=== PATIENT | male | born 1980 | race Caucasian/White ===

== ENCOUNTER 2022-10-14 10:17 | Emergency (ER) | payer OTHER, SELFPAY ==
[2022-10-14 11:25] VITALS: BP 130/89; PULSE 66; RESP 16; TEMP 36.6; O2SAT 99
--- NOTE | 2022-10-14 12:27 | ED.URI ---
HPI - URI/Sore Throat General Chief Complaint: Upper Respiratory Infection Stated Complaint: COUGH/SORE THROAT Time Seen by Provider: 10/14/22 12:15 Source: patient Mode of arrival: ambulatory Limitations: no limitations History of Present Illness HPI Narrative: Patient presents today with a 4 day history of cough, sore throat that is most prominent in the mornings, sweats, rhinorrhea. Denies shortness of breath. He isn't taking DayQuil with some relief. Daughter was sick with influenza 2 weeks ago. He is a nonsmoker. Denies any history of asthma or COPD. He did receive his flu vaccine this season. Related Data Allergies Allergy/AdvReac Type Severity Reaction Status Date / Time No Known Drug Allergies Allergy Unknown none Verified 10/14/22 12:00 Review of Systems Review of Systems: CONSTITUTIONAL: Denies fever, chills. + body aches, sweats EYES: Denies visual changes, redness, or discharge. ENT: Denies congestion, otalgia.+ rhinorrhea, sore throat CARDIOVASCULAR: Denies chest pain, palpitations, or edema. RESPIRATORY: Denies dyspnea.+ cough GASTROINTESTINAL: Denies abdominal pain, nausea, vomiting, or diarrhea. GENITOURINARY: Denies dysuria or hematuria. SKIN: Denies rash, itching, or wounds. MUSCULOSKELETAL: Denies back pain, joint pain, or myalgia. NEUROLOGIC: Denies headache, numbness, tingling, or weakness. PSYCH: Denies depression or anxiety. PMFSH Comments At time of signature, I have reviewed and agree with nursing past medical, surgical, social and family history unless otherwise noted. Please see nursing chart for further information. There is no relevant family history pertinent to the presenting complaint Exam Narrative: GENERAL: Well-appearing, well-nourished, and in no acute distress. HEAD: Normocephalic, atraumatic. EYES: EOMI. No redness or drainage. Conjunctivae normal. ENT: Mucous membranes pink and moist. Nares clear. No rhinorrhea. TMs normal bilaterally. Throat mildly erythematous edema. No exudate. Uvula midline. NECK: Normal AROM. Supple. No lymphadenopathy. CHEST: No respiratory distress. Clear to auscultation. HEART: Regular rate and rhythm. No murmur appreciated. Normal peripheral pulses. EXTREMITIES: Normal range of motion. No edema. SKIN: Warm, dry, no rash. Capillary refill normal. Normal skin turgor. NEURO: No focal deficits. Alert and oriented x3. Gait steady. PSYCH: Normal affect. No signs of depression or anxiety. Course Course Level of Care: Express Care Visit Vital Signs Vital signs: Vital Signs Temperature 98 F 10/14/22 11:25 Pulse Rate 66 10/14/22 11:25 Respiratory Rate 16 10/14/22 11:25 Blood Pressure 130/89 10/14/22 11:25 Pulse Oximetry 99 10/14/22 11:25 Oxygen Delivery Room Air 10/14/22 11:25 Temperature 98 F 10/14/22 11:25 Pulse Rate 66 10/14/22 11:25 Respiratory Rate 16 10/14/22 11:25 Blood Pressure 130/89 10/14/22 11:25 Pulse Oximetry 99 10/14/22 11:25 Oxygen Delivery Room Air 10/14/22 11:25 Reviewed. Pt has been instructed to follow up with his PCP regarding his elevated blood pressure today. MDM - URI/Sore Throat Differential Diagnosis Differential diagnosis: Likely upper respiratory infection, viral infection, bronchitis, influenza, pharyngitis and other (Strep throat) Lab Data Attestation: I reviewed the patient's lab results. Lab results narrative: Influenza negative, rapid strep positive Critical Care Time Critical Care Time Critical Care Time: No Discharge Plan Discharge Clinical Impression: Strep throat Patient Disposition: Home, Self-Care Condition: Stable Instructions: Antibiotic Form, Strep Throat (DC) Additional Instructions: Your influenza swab is negative. Your rapid strep swab is positive. Please take the amoxicillin as prescribed until gone. You will be contagious for 48 hours after starting the amoxicillin. Take Tylenol or ibuprofen at home for pain. Follow-up wi
== END 2022-10-14 12:39 | disposition home or self-care (01) ==
PROVIDERS: Emergency Provider Nurse Practitioner
DX: J02.0 Streptococcal pharyngitis (principal)
CPT/HCPCS: 87804; 87880; 99213; G0463

== ENCOUNTER 2024-02-26 01:55 | Emergency (ER) | payer BC, SELFPAY ==
--- NOTE | ~2024-02-26 | CT_ITS ---
EXAMINATION: CT abdomen pelvis w con DATE: 02/26/2024 03:21 INDICATION: Abdominal cramping for 2 months TECHNIQUE: Computed tomography (CT) of the abdomen and pelvis was performed with 100 CC Omnipaque 350 intravenous contrast. Automated exposure control and iterative reconstruction technique were employe d. Exam dose: 873.44 mGy-cm total exam DLP. COMPARISON: None. FINDINGS: The lung bases are clear. Normal heart size. No pericardial or pleural effusion. Small sliding hiatal hernia. There is thickening of the wall of the gastric antrum which may be due to gastritis or gastric neopla sm. Endoscopic correlation is recommended. Normal appendix. No bowel obstruction, bowel wall thickening, pneumatosis or intraperitoneal free air is noted otherwise. There are shotty nonenlarged periaortic, mesenteric and right lower quadrant lymph nodes. Several small probable hepatic cysts. The largest measures 1 cm. No gallstones, gallbladder wall thickening or pericholecystic fluid or fat stranding is evident. Ultr asound is more sensitive for detection of cholelithiasis. No bile duct or pancreatic duct dilatation. No pancreatic mass lesion or calcification. Normal spleni c size. Normal morphology of the adrenal glands. No renal mass lesion, urinary tract calculus or hydroureteronephrosis. Prostate calcifications. The urinary bladder appears unremarkable. No suspicious osteolytic or osteoblastic lesions. Mild to moderate bilateral hip osteoarthritis. IMPRESSION: Gastric antrum wall thickening which may be due to to gastritis or neoplasm; recommend e ndoscopic correlation Reviewed, dictated and finalized at [facility] Reviewed, dictated and finalized at [facility]. IMPRESSION: Gastric antrum wall thickening which may be due to to gastritis or neoplasm; recommend endoscopic correlation
[2024-02-26 02:00] VITALS: BP 137/88; PULSE 72; RESP 16; TEMP 36.6; O2SAT 97
[2024-02-26 02:24] LABS: Basophils Percent Auto 0.5 % (0.2-1.2); Eosinophils Absolute Auto 0.4 K/mm3 (0-0.3); Hematocrit 45.7 % (42.0-52.0); Immature Granulocyte Absolute 0.01 K/mm3 (0.00-0.031); Immature Granulocyte Percent A 0.2 % (0-0.5); Lymphocytes Absolute Auto 1.04 K/mm3 (0.9-3.2); Lymphocytes Percent Auto 16.3 % (18.3-44.2); Mean Corpuscular HGB Conc 32.8 g/dl (32-36); Mean Corpuscular Hemoglobin 30.3 pg (26-34); Mean Corpuscular Volume 92.3 fl (80-100); Mean Platelet Volume 9.5 fl (7.4-10.4); Monocytes Absolute Auto 0.6 K/mm3 (0.1-0.6); Monocytes Percent Auto 9.1 % (2.6-8.5); Neutrophils Absolute Auto 4.3 K/mm3 (1.3-6.7); Neutrophils Percent Auto 67.9 % (45.5-73.1); Platelet Count Result 246 k/mm3 (150-375); Red Blood Count 4.95 M/mm3 (4.6-6.20); Red Cell Distribution Width 12.1 % (11.5-14.5); White Blood Count 6.4 K/mm3 (4.5-10.0)
[2024-02-26 02:34] LABS: Alanine Aminotransferase 78 U/L (6-50); Albumin Level 3.7 g/dL (3.5-5.1); Alkaline Phosphatase 244 U/L (38-126); Anion Gap 5 mmol/L (4-12); Aspartate Amino Transferase 41 U/L (17-59); Bilirubin,Total 0.8 mg/dL (0.2-1.3); Blood Urea Nitrogen 11 mg/dL (9-20); Calcium 8.9 mg/dL (8.4-10.2); Carbon Dioxide 29 mmol/L (22-30); Chloride 101 mmol/L (98-107); Estimated CRCL calculation 109 ml/min; Estimated Glomerular Filt Rate > 60; Glucose 129 mg/dL (65-110); Lactic Acid Reflex 0.7 mmol/L (0.7-2.0); Lipase 96 U/L (23-300); Magnesium 1.8 mg/dL (1.6-2.3); Potassium 3.8 mmol/L (3.4-5.0); Sodium 135 mmol/L (137-145)
[2024-02-26 02:40] LABS: Appearance Urine Clear (Clear); Bilirubin Urine Negative (Negative); Blood Urine Negative (Negative); Color Urine Dark Yellow (Yellow); Glucose Urine UA Negative (Negative); Ketones Urine 1+ mg/dL (Negative); Leukocyte Esterase Ur Negative LEU/UL (Negative); Nitrate Urine Negative (Negative); Protein Urine Negative (Negative); Specific Grav Ur 1.027 (1.001-1.035); Urobilinogen Urine 0.2 mg/dL (<2.0)
[2024-02-26 02:41] LABS: Add Urine Microscopic? NO
[2024-02-26] MEDS: ONDANSETRON INJ 4 MG/2 ML VIAL IV PUSH (03:36)
--- NOTE | 2024-02-26 05:35 | ED.ABDPAIN ---
HPI - Abdominal Pain General Chief Complaint: Abdominal Pain Stated Complaint: I've been sick for a couple of months abd cramps Time Seen by Provider: 02/26/24 03:59 History of Present Illness HPI narrative: Patient is a 43-year-old male who presents to the emergency department this morning complaining of generalized abdominal cramping for the past few months. Patient states that this is associated with nausea, vomiting and diarrhea and has been intermittent for approximately 2-3 months. Patient denies any history of previous GI disorders and denies any family history of ulcerative colitis or Crohn's or double bowel syndrome. Patient states that lately he has noticed that mood majority of the fluid that he needs just does not sit well with him, he either vomits or and having diarrhea. Patient has an appointment on Wednesday in [address] for an upper endoscopy and colonoscopy. Patient states that the pain is just cramping all over his abdomen denies any localized pain. He denies any urinary symptoms and denies any fevers or chills. There are no other modifying, alleviating, or precipitating factors at this time. Related Data Allergies Allergy/AdvReac Type Severity Reaction Status Date / Time No Known Drug Allergies Allergy Unknown none Verified 02/16/24 11:56 Review of Systems Review of Systems: All systems are reviewed and are negative unless stated otherwise in the HPI. [facility] Social History Social History Smoking status: Never smoker Alcohol intake: never Substance use: never Substance use type: does not use Living arrangements: with family Spiritual care concerns: No Exam Narrative: General: Alert, awake, afebrile, in no acute distress. HEENT: PERRL, no rhinorrhea, no post nasal drip, oropharynx clear. Neck: Trachea midline, no JVD, no lymphadenopathy. Cardiovascular: Regular rate and rhythm, no murmurs, rubs or gallops, no peripheral edema. Respiratory: Clear to auscultation bilaterally, no tachypnea, no wheezing, no rhonchi, no rubs, no respiratory distress. Abdomen: Soft, nontender, nondistended, no rebound, no guarding, no peritoneal signs. Musculoskeletal: No joint swelling or deformity, normal muscle tone. Skin: No rashes or petechia, no signs of infection. Psychiatric: Alert and oriented, normal behavior and judgment for situation. Neurological: Alert and oriented to person, place, and time. Follows all commands. No focal deficits, speech is clear and fluent. Course Vital Signs Vital signs: Vital Signs Temperature 97.8 F 02/26/24 02:00 Pulse Rate 72 02/26/24 02:00 Respiratory Rate 16 02/26/24 02:00 Blood Pressure 137/88 02/26/24 02:00 Pulse Oximetry 97 02/26/24 02:00 Temperature 97.8 F 02/26/24 02:00 Pulse Rate 68 02/26/24 07:03 Respiratory Rate 18 02/26/24 07:03 Blood Pressure 178/78 H 02/26/24 07:03 Pulse Oximetry 98 02/26/24 07:03 MDM - Abdominal Pain MDM Narrative Medical decision making narrative: The patient was evaluated by myself in the emergency department. History is obtained from patient who is an independent historian and physical exam was performed. External medical records were reviewed at this time. IV was established and pertinent tests were ordered. Patient was administered 4 mg IV Zofran for nausea. Laboratory results obtained revealing mild elevation and patient's alkaline phosphatase of 244 and mild elevation of the ALT of 78. Imaging studies obtained included CT abdomen and pelvis with IV contrast which was independently interpreted by me revealing gastric antrum wall thickening which may be due to to gastritis or neoplasm; recommend endoscopic correlation. Differential diagnosis considerations include gastritis, peptic ulcer disease, inflammatory bowel disease and acute viral syndrome. Comorbidities impacting this visit include none. I have ev
[2024-02-26 07:03] VITALS: BP 178/78; PULSE 68; RESP 18; O2SAT 98
== END 2024-02-26 07:06 | disposition home or self-care (01) ==
PROVIDERS: Emergency Provider Emergency Medicine; PCP Emergency Medicine
DX: R10.84 Generalized abdominal pain (principal); R11.2 Nausea with vomiting, unspecified
CPT/HCPCS: 36415; 74177; 80053; 81003; 82248; 83605; 83690; 83735; 85025; 96374; 99284; J2405; Q9967

== ENCOUNTER 2024-02-29 00:28 | Day surgery (SDC) | payer BC, SELFPAY ==
[2024-02-16 11:57] VITALS: BMI 36.6
--- NOTE | 2024-02-25 10:06 | SUR.PREOP ---
Patient called regarding upcoming procedure. Reviewed preop instructions, appointment times, and procedure prep.
[2024-02-29 11:54] VITALS: PULSE 83; RESP 18; TEMP 36.3; O2SAT 97
[2024-02-29] MEDS: LACTATED RINGERS 1,000 ML 150 ML IV CONT (12:04)
[2024-02-29 12:10] VITALS: BP 127/81
--- NOTE | 2024-02-29 12:52 | P.PNAN_ITS ---
Anes - Initial Pre Proc Eval Procedure: Operation Date: 02/29/24 13:00 Proposed Procedures p Esophagogastroduodenoscopy & Colonoscopy - Shahzad Fuentes MD Date/Time: 02/29/24 12:52 Surgeon: Shahzad Fuentes MD Pre Op Diagnosis: Change in bowel habit, diarrhea, GERD Patient Data Age: 43 Gender: M Height: 1.78 m Weight: 112.4 kg Last Vital Signs Temp 97.3 F L 02/29/24 11:54 Pulse 83 02/29/24 11:54 Resp 18 02/29/24 11:54 BP 127/81 02/29/24 12:10 Pulse Ox 97 02/29/24 11:54 O2 Del Method Room Air 02/29/24 11:54 Allergies Allergy/AdvReac Type Severity Reaction Status Date / Time No Known Drug Allergies Allergy Unknown none Verified 02/29/24 11:52 Home Medications Medication Instructions Recorded Confirmed Type ondansetron 4 mg disintegrating 4 mg PO Q8H PRN nausea and 02/26/24 Rx tablet vomiting #10 tabs Patient hx anesthesia problems: none Family hx anesthesia problems: none Results Review: All pre-operative results and documents have been reviewed as part of the pre- operative evaluation. PMFSH Social History Social History Smoking status: Never smoker Alcohol intake: never Substance use: never Substance use type: does not use Living arrangements: with family Spiritual care concerns: No Anes - Eval Final PreProcedure Day of Procedure 02/29/24 12:52 Patient weight: obese Heart: regular rate and rhythm Lungs: clear to auscultation Airway: Mallampati scale class II Neurological: alert and oriented Last oral intake: >/= 8 hours ASA classification: II Emergent: no Anesthetic plan: proceed Anesthesia type and monitoring: general GIVS and standard monitoring Results Review: All pre-operative results and documents have been reviewed as part of the pre- operative evaluation. Informed Consent: The patient's anesthetic plan and its attendant risks and benefits were discussed with the patient/family/POA. Questions were solicited and answers provided to the satisfaction of the patient/family/POA.
--- NOTE | 2024-02-29 12:54 | PM.HPGS ---
History of Present Illness History of Present Illness Consent: Risks, benefits, and alternatives have been discussed and questions answered. Patient agrees to proceed with procedure. Chief complaint: Change in bowel habit, diarrhea, GERD Narrative: Lukasz Gibbs is a 43 year old male with nausea and vomiting for last 3 weeks, diarrhea for 2 months, never had scopes. Also noted weight loss. He came to ER recently, CT scan showed gastric antrum wall thickening which may be due to to gastritis or neoplasm; recommend endoscopic correlation Review of Systems Review of Systems: All systems reviewed & are unremarkable except as noted in HPI and below PMFSH Past Medical History Medical History (Updated 02/29/24 @ 12:56 by Shahzad Fuentes MD) Nausea and vomiting in adult Weight loss Social History Social History Smoking status: Never smoker Alcohol intake: never Substance use: never Substance use type: does not use Living arrangements: with family Spiritual care concerns: No Meds Home Medications and Allergies Home Medications Medication Instructions Recorded Confirmed Type ondansetron 4 mg disintegrating 4 mg PO Q8H PRN nausea and 02/26/24 Rx tablet vomiting #10 tabs Allergies Allergy/AdvReac Type Severity Reaction Status Date / Time No Known Drug Allergies Allergy Unknown none Verified 02/29/24 11:52 Vital Signs Vital Signs - 24 hr 02/29/24 11:54 02/29/24 12:10 Temperature 97.3 F L Pulse Rate 83 Respiratory Rate 18 Blood Pressure 127/81 Pulse Oximetry 97 Oxygen Delivery Room Air Exam Const: General: comfortable and no acute distress HENMT: Face/Nose/Sinus: Normal nares present Eyes: General: appearance normal, both eyes and all related structures Neck: Neck: no JVD Resp: Auscultation: clear to auscultation bilaterally Cardio: Rate: regular rate Rhythm: regular rhythm GI: Inspection: non-distended GI Palp: Yes Soft to palpation Skin: General skin exam: normal color Neuro: General: gait normal Speech: normal speech Extrem: General: normal to inspection Psych: Mental Status: mental status grossly normal Assessment and Plan Assessment and plan (1) Nausea and vomiting in adult: Code(s): R11.2 - Nausea with vomiting, unspecified Status: Acute Assessment and Plan: egd with bx (2) Weight loss: Code(s): R63.4 - Abnormal weight loss Status: Acute Assessment and Plan: also will do colonoscopy consider random bx to check for colitis
--- NOTE | 2024-02-29 13:14 | SUR.OPER ---
egd ended at 1309, colonoscopy started at 1314
[2024-02-29 13:32] VITALS: BP 113/82; PULSE 70; RESP 18; O2SAT 95
[2024-02-29 13:42] VITALS: BP 123/79; PULSE 71; RESP 14; O2SAT 99
[2024-02-29 13:52] VITALS: BP 109/60; PULSE 67; RESP 18; O2SAT 99
== END 2024-02-29 14:08 | disposition home or self-care (01) ==
PROVIDERS: PCP Emergency Medicine; Visit Provider Internal Medicine Gastroenterology
PROC: 0DJ08ZZ Inspection of Upper Intestinal Tract, Via Natural or Artificial Opening Endoscopic (ICD-10-PCS; CPT 43235; principal; 2024-02-29 13:00)
DX: K52.9 Noninfective gastroenteritis and colitis, unspecified (principal); K21.00 Gastro-esophageal reflux disease with esophagitis, without bleeding; K29.70 Gastritis, unspecified, without bleeding; K44.9 Diaphragmatic hernia without obstruction or gangrene; E66.9 Obesity, unspecified; Z68.35 Body mass index [BMI] 35.0-35.9, adult
CPT/HCPCS: 45380; 43239; 88305; 88342; J2704; J7120

== ENCOUNTER 2024-03-08 11:35 | Outpatient (CLI) | payer BC, SELFPAY ==
[2024-03-08 12:17] LABS: CRP 0.7 mg/dL (<1.0)
[2024-03-08 13:25] LABS: Erythrocyte Sedimentation Rate 50 mm/hr (0-20)
[2024-03-08 13:29] LABS: Hepatitis B Surface Antigen Negative (Negative)
[2024-03-08 13:35] LABS: HAV RESULT Negative (Negative); Hepatitis B Core IgM Result Negative (Negative)
[2024-03-08 13:46] LABS: Hepatitis C Virus Antibody Negative (Negative)
[2024-03-08 13:46] LABS: HIV 1/2 Ab P24 Ag Result Negative (Negative)
[2024-03-10 17:49] LABS: NIL 0.12 IU/mL; Quantiferon TB Plus, 1T NEGATIVE (NEGATIVE); TB1-NIL 0.01 IU/mL; TB2-NIL 0.01 IU/mL
[2024-03-13 02:58] LABS: Myeloperoxidase Ab <1.0 AI (<1.0); Proteinase-3 Ab 1.9 AI (<1.0)
[2024-03-13 05:49] LABS: S cerevisiae Ab (IgA) 4.5 U (<=20.0)
[2024-03-13 09:48] LABS: S cerevisiae Ab (IgG) 28.7 U (<=20.0)
[2024-03-14 08:05] LABS: ANCA Screen C-ANCA POS (Negative); C-ANCA Titer Reflex Chg Test YES
== END 2024-03-08 11:36 | disposition home or self-care (01) ==
LOC: ANHLAB 11:37
PROVIDERS: PCP Emergency Medicine; Visit Provider Internal Medicine Gastroenterology
DX: R63.4 Abnormal weight loss (principal); K52.9 Noninfective gastroenteritis and colitis, unspecified
CPT/HCPCS: 36415; 80074; 85652; 86036; 86140; 86480; 86671; 86703; G0432

== ENCOUNTER 2024-03-16 08:07 | Outpatient (CLI) | payer BC, SELFPAY ==
--- NOTE | ~2024-03-16 | US_ITS ---
Abdominal Sonogram: Real-time sonographic imaging of the abdomen was performed. Clinical History: Liver disease Findings: The liver appears heterogeneous, with no evidence of mass lesion or bile duct dilatation. Main portal vein demonstrates normal direction of flow. The spleen is mildly enlarged, measuring 14.5 cm in length. The gallbladder is well distended, and appears normal with no evidence of gallstone o r wall thickening. The common bile duct measures 5 mm. The visualized pancreas, aorta, and IVC are u nremarkable. The right kidney measures 10.4 cm in length and the left kidney measures 12.2 cm. Ther e is no hydronephrosis or renal calculus. Impression: Suspected fatty infiltration of liver versus possibly other chronic liver disease. Correlate clinical ly. Mild splenomegaly. Reviewed, dictated and finalized at [facility]. Impression: Suspected fatty infiltration of liver versus possibly other chronic liver disea se. Correlate clinically. Mild splenomegaly.
== END 2024-03-16 08:08 ==
LOC: MICIMG 08:08
PROVIDERS: PCP Internal Medicine Gastroenterology; Visit Provider Emergency Medicine
DX: K76.9 Liver disease, unspecified (principal); R16.1 Splenomegaly, not elsewhere classified
CPT/HCPCS: 76700

== ENCOUNTER 2024-03-17 08:09 | Outpatient (CLI) | payer BC, SELFPAY ==
[2024-03-17 09:27] LABS: Toxigenic C. Diff NEGATIVE (NEGATIVE)
[2024-03-22 14:28] LABS: Calprotectin, Stool 2490 mcg/g
== END 2024-03-17 08:10 | disposition home or self-care (01) ==
LOC: ANHLAB 08:11
PROVIDERS: PCP Internal Medicine Gastroenterology; Visit Provider Internal Medicine Gastroenterology
DX: K52.9 Noninfective gastroenteritis and colitis, unspecified (principal); R63.4 Abnormal weight loss
CPT/HCPCS: 83993; 87045; 87427; 87449; 87493; 89055

== ENCOUNTER 2024-04-12 09:32 | Emergency (ER) | payer BC, SELFPAY ==
--- NOTE | ~2024-04-12 | CT_ITS ---
CT of the Abdomen and Pelvis: Indication: Abdominal pain, ulcerative colitis Technique: 2.5 mm axial scans were obtained through the abdomen and pelvis following intravenous adm inistration of 100 cc of Omnipaque 350. Dose reduction technique was used on this scan by utilizing a utomated exposure control and iterative reconstruction technique. The dose-length product (DLP) was 8 61.04 mGy-cm. COMPARISON: 02/26/2024 Findings: Scans through the lung bases are unremarkable. The liver, spleen, pancreas, gallbladder, adrenals and kidneys are within normal limits. No evidence of aortic aneurysm. No lymphadenopathy. There is diffuse large bowel wall thickening, compatible with history of ulcerative colitis. No absce ss or free air seen. No bowel obstruction. Images through the pelvis were performed. Urinary bladder unremarkable. No pelvic mass seen. No ascit es. Impression: Diffuse large bowel wall thickening is compatible with history of ulcerative colitis. No abscess, obs truction, or free air. Reviewed, dictated and finalized at location . Impression: Diffuse large bowel wall thickening is compatible with history of ulcerative co litis. No abscess, obstruction, or free air.
[2024-04-12 09:49] VITALS: BP 111/81; PULSE 87; RESP 18; TEMP 36.5; O2SAT 100
--- NOTE | 2024-04-12 10:54 | ED.ABDPAIN ---
HPI - Abdominal Pain General Chief Complaint: Abdominal Pain Stated Complaint: abdominal cramping-blood in stool Time Seen by Provider: 04/12/24 10:50 Source: patient and family () Mode of arrival: ambulatory Limitations: no limitations History of Present Illness HPI narrative: Patient presents with complaint of abdominal pain and cramping. He has also been having blood tinged stool for several weeks. States it is not just bright red blood per rectum but rather hematochezia. Also having mucous. Recently diagnosed with ulcerative colitis per patient. GI specialist is Dr Maciel Mckeon. He started mesalamine but does not find it is helping. Had felt better for about 1 week after his colonoscopy but then declining. Trialing bland foods (BRAT diet, crackers) but all food seems to aggravate symptoms. He lost 40 lbs. Having 20+ stools/day. Pain is generalized but at times if inferior to his umbilicus and sharp in quality. 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 HEAD: Normocephalic, atraumatic. EYES: Non injected, non icteric ENT: Nares clear, no rhinorrhea or epistaxis. NECK: Supple. CHEST: Speaking in full sentences. No respiratory distress. HEART: Regular rate and rhythm. . ABDOMEN/GI: Soft, slightly distended. diffuse tenderness to palpation throughout. No overlying ecchymosis. Rectal exam performed, normal rectal tone. No masses. Brown stool on gloved finger, no melena. FOBT/guiaic negative. EXTREMITIES: Normal range of motion. No edema. SKIN: Warm, dry, no rash. NEURO: No focal deficits. Alert and oriented x3. PSYCH: Normal mood and affect. Course Vital Signs Vital signs: Vital Signs Temperature 97.7 F 04/12/24 09:49 Pulse Rate 87 04/12/24 09:49 Respiratory Rate 18 04/12/24 09:49 Blood Pressure 111/81 04/12/24 09:49 Pulse Oximetry 100 04/12/24 09:49 Oxygen Delivery Room Air 04/12/24 09:49 Temperature 97.7 F 04/12/24 09:49 Pulse Rate 76 04/12/24 13:24 Respiratory Rate 14 04/12/24 13:24 Blood Pressure 122/70 04/12/24 13:24 Pulse Oximetry 99 04/12/24 13:24 Oxygen Delivery Room Air 04/12/24 09:49 MDM - Abdominal Pain MDM Narrative Medical decision making narrative: Patient presents with abdominal pain and cramping and having multiple stools a day, some blood tinged and also associated with some mucous. In the emergency department they are afebrile with vital signs within normal limits. Recently diagnosed with ulcerative colitis per patient report. CT without evidence of complication but consistent with UC diagnosis. ESR normal but CRP mildly elevated. Will discharge with 2 week prescription for 40mg prednisone followed by taper (first dose given in ED). Typically rest of taper is to reduce by 5mg. Will prescribe enough tablets to allow time to get to patient's already scheduled follow up appointment with GI. Patient verifies understanding. Also expresses that he is unclear if the 3 tablets of mesalamine he is prescribed are meant to be taken at once versus TID. Reviewed notes and this is unclear; advised he f/u with GI. Differential Diagnosis Differential diagnosis: Likely abdominal pain, diverticulitis, gastroenteritis and other (colitis/UC flare , considered possible complication s
[2024-04-12 11:16] LABS: Basophils Absolute Auto 0.1 K/mm3 (0.0-0.1); Basophils Percent Auto 0.6 % (0.2-1.2); Eosinophils Absolute Auto 0.6 K/mm3 (0-0.3); Eosinophils Percent Auto 5.9 % (0-4.4); Hematocrit 45.7 % (42.0-52.0); Hemoglobin 14.6 g/dL (14.0-18.0); Immature Granulocyte Absolute 0.04 K/mm3 (0.00-0.031); Immature Granulocyte Percent A 0.4 % (0-0.5); Lymphocytes Absolute Auto 1.01 K/mm3 (0.9-3.2); Lymphocytes Percent Auto 10.6 % (18.3-44.2); Mean Corpuscular HGB Conc 31.9 g/dl (32-36); Mean Corpuscular Hemoglobin 29.6 pg (26-34); Mean Corpuscular Volume 92.7 fl (80-100); Mean Platelet Volume 9.2 fl (7.4-10.4); Monocytes Percent Auto 10.5 % (2.6-8.5); Neutrophils Absolute Auto 6.9 K/mm3 (1.3-6.7); Platelet Count Result 277 k/mm3 (150-375); Red Blood Count 4.93 M/mm3 (4.6-6.20); Red Cell Distribution Width 11.9 % (11.5-14.5); White Blood Count 9.6 K/mm3 (4.5-10.0)
[2024-04-12] MEDS: MORPHINE SULFATE (*CRX) 4 MG/ML INJ IV PUSH (11:16)
[2024-04-12] MEDS: SODIUM CHLORIDE 0.9% IV 1,000 ML 999 ML IV CONT (11:16)
[2024-04-12 11:28] LABS: Estimated CRCL calculation 81 ml/min; Estimated Glomerular Filt Rate > 60
[2024-04-12 11:29] LABS: Alanine Aminotransferase 26 U/L (6-50); Alkaline Phosphatase 112 U/L (38-126); Anion Gap 8 mmol/L (4-12); Aspartate Amino Transferase 26 U/L (17-59); Bilirubin,Total 0.6 mg/dL (0.2-1.3); Blood Urea Nitrogen 7 mg/dL (9-20); Calcium 8.8 mg/dL (8.4-10.2); Carbon Dioxide 28 mmol/L (22-30); Chloride 102 mmol/L (98-107); Estimated CRCL calculation 95 ml/min; Estimated Glomerular Filt Rate > 60; Glucose 107 mg/dL (65-110); Lactic Acid Reflex 1.1 mmol/L (0.7-2.0); Lipase 40 U/L (23-300); Potassium 4.1 mmol/L (3.4-5.0); Sodium 138 mmol/L (137-145)
[2024-04-12 12:05] LABS: Erythrocyte Sedimentation Rate 13 mm/hr (0-20)
[2024-04-12 12:16] LABS: Appearance Urine Clear (Clear); Bilirubin Urine Negative (Negative); Blood Urine Negative (Negative); Color Urine Dark Yellow (Yellow); Glucose Urine UA Negative (Negative); Ketones Urine Trace mg/dL (Negative); Leukocyte Esterase Ur Negative LEU/UL (Negative); Nitrate Urine Negative (Negative); Protein Urine Negative (Negative); pH Urine 5.5 (5.0-9.0)
[2024-04-12 12:17] LABS: CRP 5.9 mg/dL (<1.0)
[2024-04-12 12:18] VITALS: BP 136/80; PULSE 78; RESP 16; O2SAT 99
[2024-04-12 12:24] LABS: Specific Grav Ur 1.056 (1.001-1.035)
[2024-04-12 12:25] LABS: Add Urine Microscopic? NO
[2024-04-12] MEDS: predniSONE 20 MG TABLET 40 MG PO (12:53)
[2024-04-12 13:24] VITALS: BP 122/70; PULSE 76; RESP 14; O2SAT 99
== END 2024-04-12 13:25 | disposition home or self-care (01) ==
PROVIDERS: Emergency Provider Student in an Organized Health Care Education/Training Program; PCP Internal Medicine Gastroenterology
DX: K51.90 Ulcerative colitis, unspecified, without complications (principal); R79.82 Elevated C-reactive protein (CRP)
CPT/HCPCS: 36415; 74177; 80053; 81003; 83605; 83690; 85025; 85652; 86140; 96361; 96374; 99284; J2270; J7030; J7512; Q9967

== ENCOUNTER 2024-09-01 08:41 | Outpatient (CLI) | payer BC, SELFPAY ==
[2024-09-01 11:01] LABS: Toxigenic C. Diff POSITIVE (NEGATIVE)
[2024-09-07 01:54] LABS: Calprotectin, Stool 286 mcg/g
== END 2024-09-01 08:42 | disposition home or self-care (01) ==
LOC: ANHLAB 08:42
PROVIDERS: PCP Emergency Medicine; Visit Provider Nurse Practitioner
DX: K21.9 Gastro-esophageal reflux disease without esophagitis (principal)
CPT/HCPCS: 83993; 87493

== ENCOUNTER 2024-09-18 17:00 | Outpatient (CLI) | payer BC, SELFPAY ==
[2024-09-18 18:09] LABS: Toxigenic C. Diff NEGATIVE (NEGATIVE)
== END 2024-09-18 17:01 | disposition home or self-care (01) ==
LOC: ANHLAB 17:01
PROVIDERS: PCP Emergency Medicine; Visit Provider Nurse Practitioner
DX: A04.72 Enterocolitis due to Clostridium difficile, not specified as recurrent (principal)
CPT/HCPCS: 83993; 87045; 87269; 87427; 87449; 87493

== ENCOUNTER 2024-09-29 17:40 | Outpatient (CLI) | payer BC, SELFPAY ==
[2024-09-29 18:45] LABS: Toxigenic C. Diff NEGATIVE (NEGATIVE)
== END 2024-09-29 17:41 | disposition home or self-care (01) ==
LOC: ANHLAB 17:41
PROVIDERS: PCP Emergency Medicine; Visit Provider Nurse Practitioner
DX: K52.9 Noninfective gastroenteritis and colitis, unspecified (principal); A04.72 Enterocolitis due to Clostridium difficile, not specified as recurrent
CPT/HCPCS: 87493

== ENCOUNTER 2025-02-21 10:22 | Outpatient (CLI) | payer BC, SELFPAY ==
[2025-02-21 11:04] LABS: Hematocrit 41.3 % (42.0-52.0); Hemoglobin 12.8 g/dL (14.0-18.0); Mean Corpuscular Hemoglobin 27.9 pg (26-34); Mean Corpuscular Volume 90.2 fl (80-100); Mean Platelet Volume 9.2 fl (7.4-10.4); Platelet Count Result 210 k/mm3 (150-375); Red Blood Count 4.58 M/mm3 (4.6-6.20); Red Cell Distribution Width 12.5 % (11.5-14.5); White Blood Count 7.2 K/mm3 (4.5-10.0)
[2025-02-21 11:23] LABS: Alanine Aminotransferase 40 U/L (6-50); Albumin Level 3.7 g/dL (3.5-5.1); Alkaline Phosphatase 79 U/L (38-126); Anion Gap 5 mmol/L (4-12); Aspartate Amino Transferase 26 U/L (17-59); Bilirubin,Total 0.4 mg/dL (0.2-1.3); Blood Urea Nitrogen 11 mg/dL (9-20); CRP 0.9 mg/dL (<1.0); Calcium 9.2 mg/dL (8.4-10.2); Carbon Dioxide 33 mmol/L (22-30); Chloride 100 mmol/L (98-107); Estimated Glomerular Filt Rate > 60; Glucose 152 mg/dL (65-110); Sodium 138 mmol/L (137-145)
--- OUTSIDE RECORDS SUMMARY | 2025-02-21 11:43 | XMS_ITS | Clinical Summary ---
Author Organization [facility] Address [address] [place] [address] Phone Care Team Providers Care Authorization Nurse Name Role Phone Unavailable Unavailable Unavailable Reason for Visit and Chief Complaint The Chief Complaint is: PT HAS EXCEMA ALL OVER HIS BODY, ITCHES, HURTS, LAST OUTBREAK THIS BAD WAS IN 2002 Plan of Treatment - ECZEMATOID DERMATITIS - Last Documented On 10/26/2009 9:48AM ; [facility] Medrol (Stone) 4 MG TABS, as directed, 7 days, 0 refills Triamcinolone Acetonide 0.5 % CREA, apply BID, 30 days, 2 refills - Last Documented On 10/26/2009 9:48AM ; [facility] Assessments Includes: Assessments from this encounter Findings - Eczematoid dermatitis - Last Documented On 10/26/2009 9:48AM ; [facility] Medical Equipment - Implanted Devices Includes: Current Devices No Medical Equipment Recorded Medications Includes: Medications discussed during this encounter and other current Medications New / Renewed during this visit JOESPH ROGER PA-C on 10/26/2009 Medrol (Stone) 4 MG OR TABS Provider: JOESPH Weiss 7 day supply: 1, 0 refills Diagnosis: DERM ATITIS NOS Pharmacy: [id number] - [address] [facility], [id number] - Last Documented On 9:48AM By JOESPH ROGER PA-C ; [facility] Triamcinolone Acetonide 0.5% EX CREA Provider: JOESPH ROGER PA-C 30 day supply: 45 gram, 2 refills Diagnosis: DERMATITIS NOS Pharmacy: [id number] - [address] [facility], [id number] - Last Documented On 9 9:48AM By JOESPH ROGER PA-C ; [facility] Medications Administered Includes: Administered Medications from this encounter No Administered Medications Recorded Vital Signs Includes: Vital Signs from this encounter Vital Name 10/26/2009 09:15A Blood Pressure Sitting L 110/80 BP Cuff Size Large Pulse Rate-Sitting (bpm) 64 Pulse Rhythm Regular Temp-Oral (F) 97.8 Weight (lb) 256 Last Documented: On 10/26/2009 9:29AM ; [facility] Results Includes: Results discussed during this encounter No Results Recorded For Specified Dates History of Present Illness Includes: History of Present Illness from this encounter MATTHEW LOVE is a 29 year old male. - Dry skin - Pruritus - Localized rash diffuse, worse on arns, legs - Spreading - Has gotten much worse - No painful lesion - Does not ooze - Does not bleed Present for 2 weeks Social History No Social History Recorded - Smoking Status Unknown Medical History Includes: Medical History addressed during this encounter No Medical History Recorded Family History Includes: Family History addressed during this encounter No Family History Recorded Review of Systems Includes: Review of Systems from this encounter Systemic: No fever and no chills. Skin: Pruritus and rash: Mental Status Includes: Mental Status from this encounter Description Oriented to time, place, and person Functional Status Includes: Functional Status from this encounter No Functional Status Recorded Physical Exam Includes: Physical Exam from this encounter Allergies Includes: Active Allergies No Known Allergies Encounters Encounter Provider Location Date Check-In Time Check-Out Time Diagnosis SICK VISIT JOESPH ROGER PA-C [facility] 10/26/20 09 9:12AM 11:59PM Eczematoid Dermatitis Clinical Notes Includes: Clinical Notes from this encounter No Clinical Notes Recorded
--- OUTSIDE RECORDS SUMMARY | 2025-02-21 11:43 | XMS_ITS | Clinical Summary ---
Author Organization [facility] Address [address] [place] [address] Phone Care Team Providers Care Actuarial Trainee Name Role Phone Unavailable Unavailable Unavailable Reason for Visit and Chief Complaint CHART UPDATE Plan of Treatment No Plan of Treatment Recorded Assessments Includes: Assessments from this encounter No Assessments Recorded Medical Equipment - Implanted Devices Includes: Current Devices No Medical Equipment Recorded Medications Includes: Medications discussed during this encounter and other current Medications Past Medications on file Medrol (Stone) 4 MG OR TABS 10/26/2009 - 11/02/2009 Provider: JOESPH ANTON CH, PA-C Diagnosis: DERMATITIS NOS Last Documented On 9 9:48AM By JOESPH ROGER PA-C ; [facility] Triamcinolone Acetonide 0.5% EX CREA 10/26/2009 - 01/24/2010 Provider: JOESPH ANTON CH, PA-C Diagnosis: DERMATITIS NOS Last Documented On 9 9:48AM By JOESPH ROGER PA-C ; [facility] Medications Administered Includes: Administered Medications from this encounter No Administered Medications Recorded Results Includes: Results discussed during this encounter No Results Recorded For Specified Dates History of Present Illness Includes: History of Present Illness from this encounter HPI MEMO LOVE is a 28 year old male. - No previous history of cardiovascular symptoms. - No previous history of easy bleeding. - No previous history of complaint of recurrent infections. Social History Description Last Updated Exercise frequency WORK OUT CARDIIO /PRATEEK GHT 05/03/2009 Last Documented On 9 7:22PM ; [facility] Single 05/03/2009 Last Documented On 9 7:22PM ; [facility] Smoking Status Unknown Medical History Includes: Medical History addressed during this encounter Description Last Updated No history of arthritis 05/03/2009 Last Documented On 9 7:22PM ; [facility] No history of cancer 05/03/2009 Last Documented On 9 7:22PM ; [facility] No history of chronic obstructive pulmon daphnie disease 05/03/2009 Last Documented On 9 7:22PM ; [facility] No history of convulsive disorder 2008 Last Documented On 9 7:22PM ; [facility] No history of diabetes mellitus 05/03/20 09 Last Documented On 9 7:22PM ; [facility] No history of hypertension 05/03/2009 Last Documented On 9 7:22PM ; [facility] No history of stroke syndrome 05/03/2009 Last Documented On 9 7:22PM ; [facility] No history of venereal disease 9 Last Documented On 9 7:22PM ; [facility] Surgery HERNIA 84 05/03/2009 Last Documented On 9 7:22PM ; [facility] Family History Includes: Family History addressed during this encounter No Family History Recorded Review of Systems Includes: Review of Systems from this encounter No Review of Systems Recorded Mental Status Includes: Mental Status from this encounter No Mental Status Recorded Functional Status Includes: Functional Status from this encounter No Functional Status Recorded Physical Exam Includes: Physical Exam from this encounter No Physical Exam Recorded Allergies Includes: Active Allergies No Known Allergies Encounters Encounter Provider Location Date Check-In Time Check-Out Time Diagnosis CHART UPDATE ALEXANDRIA SERRANO D.O[facility] 05/03/20 09 7:19PM 11:59PM Clinical Notes Includes: Clinical Notes from this encounter No Clinical Notes Recorded
--- OUTSIDE RECORDS SUMMARY | 2025-02-21 11:43 | XMS_ITS | Clinical Summary ---
Author Organization [facility] Address [address] [place] [address] Phone Care Team Providers Care Cataloging Assistant Name Role Phone Unavailable Unavailable Unavailable Reason for Visit and Chief Complaint visit for: THE PATIENT IS A NEW PATIENT WHO IS HERE FOR A PREVENTATIVE CARE VISIT. HE DENIES CHEST PAIN/DYSPNEA. 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 NORMAL ROUTINE HISTORY AND PHYSICALLab: Lipid PanelLab: Glucose, Serum - 6745 - Glucose - Last Documented On 10/25/2013 5:08PM ; [facility] Pending Tests Order Diagnosis Results Due Ordering Zuleyma higuera Lab Lipid Panel 10/25/13 [place]RI[place] A CRAN CER D.O. Last Documented On 3 10:18AM ; [facility] Lab Glucose, Serum 10/25/13 [place] Lisa C RANCER D.O. Last Documented On 3 10:18AM ; [facility] Lab GLUCOSE 10/25/13 [place] A CRANC ER D.O. Last Documented On 3 10:18AM ; [facility] Lab LIPID PANEL 10/25/13 [place] A CRAN CER D.O. Last Documented On 3 10:18AM ; [facility] Lab 2 HR GTT 10/25/13 [place] A CRANC ER D.O. Last Documented On 4 9:57AM ; [facility] Assessments Includes: Assessments from this encounter Findings - Normal routine history and physical - Last Documented On 10/25/2013 5:08PM ; [facility] - Obesity - Last Documented On 10/25/2013 5:08PM ; [facility] Medical Equipment - Implanted Devices Includes: Current Devices No Medical Equipment Recorded Medications Includes: Medications discussed during this encounter and other current Medications Past Medications on file Medrol (Stone) 4 MG OR TABS 10/26/2009 - 11/02/2009 Provider: JOESPH ANTON CH, PA-C Diagnosis: DERMATITIS NOS Last Documented On 9 9:48AM By JOESPH ROGER PA-C ; [facility] Triamcinolone Acetonide 0.5% EX CREA 10/26/2009 - 01/24/2010 Provider: JOESPH ANTON CH, PA-C Diagnosis: DERMATITIS NOS Last Documented On 9 9:48AM By JOESPH ROGER PA-C ; [facility] Medications Administered Includes: Administered Medications from this encounter No Administered Medications Recorded Vital Signs Includes: Vital Signs from this encounter Vital Name 10/25/2013 09:41A Blood Pressure Sitting (mmHg) 118/76 Pulse Rate-Sitting (bpm) 60 Respiration Rate (breaths/min) 16 Height (in) 71 Weight (lb) 273 Waist Circumference (in) 43.5 Body Mass Index (kg/m2) 38.1 Body Surface Area (m2) 2.4 Last Documented: On 10/25/2013 9:49AM ; [facility] Results Includes: Results discussed during this encounter No Results Recorded For Specified Dates History of Present Illness Includes: History of Present Illness from this encounter MATTHEW LOVE is a 33 year old male. - Feeling overweight. - No cardiovascular symptoms. - No pulmonary symptoms. - No musculoskeletal symptoms. Social History Description Last Updated Currently 10/25/2013 Last Documented On 3 5:08PM ; [facility] No consumption of alcohol 10/25/2013 Last Documented On 3 5:08PM ; [facility] No tobacco use 10/25/2013 Last Documented On 3 5:08PM ; [facility] Not using drugs 10/25/2013 Last Documented On 3 5:08PM ; [facility] Smoking Status Unknown Procedures and Surgical History Includes: Procedures from this encounter Procedures Code Diagnosis Performing Provider Service L ocation Service Date plan of care reviewed and agreed to THE PATIENT WAS ENCOURAGED TO LOSE WEIGHT BY KEEPING HIS CALORIC INTAKE TO 1500 PER DAY. HE SHOULD TRY TO LIMIT HIS CARBS TO 50 GRAMS PER MEAL. HE ALSO WAS ENCOURAGED TO EXERCISE SEVERAL DAYS A WEEK Last Documented On 3 5:07PM ; [facility] Medical History Includes: Medical History addressed during this encounter Description Last Updated No reported easy bleeding 10/25/2013 Last Documented On 3 5:08PM ; [facility] No reported recurrent infections 013 Last Documented On 3 5:08PM ; [facility] No history of arthritis 05/03/2009 Last Documented On 3 9:36AM ; [facility] No history of cancer 05/03/2009 Last Documented On 3 9:36AM ; [facility] No history of chronic obstructive pulmon daphnie disease 05/03/2009 Last Documented On 3 9:36AM ; [facility] No history of convulsive disorder 2008 Last Documented On 3 9:36AM ; [facility] No history of diabetes mellitus 05/03/20 09 Last Documented On 3 9:36AM ; [facility] No history of hypertension 05/03/2009 Last Documented On 3 9:36AM ; [facility] No history of stroke syndrome 05/03/2009 Last Documented On 3 9:36AM ; [facility] No history of venereal disease 9 Last Documented On 3 9:36AM ; [facility] Surgery HERNIA 84 05/03/2009 Last Documented On 3 9:36AM ; [facility] Family History Includes: Family History addressed during this encounter Description Last Updated Father 66 years old 10/25/2013 Last Documented On 3 5:08PM ; [facility] Mother 65 years old 10/25/2013 Last Documented On 3 5:08PM ; [facility] Review of Systems Includes: Review of Systems from this encounter Systemic: Systemic symptoms. Not feeling poorly (malaise). Feeling overweight. Mental Status Includes: Mental Status from this encounter No Mental Status Recorded Functional Status Includes: Functional Status from this encounter No Functional Status Recorded Physical Exam Includes: Physical Exam from this encounter Allergies Includes: Active Allergies No Known Allergies Encounters Encounter Provider Location Date Check-In Time Check-Out Time Diagnosis NEW PATIENT VISIT ALEXANDRIA SERRANO D.[facility] 10/25/20 13 9:23AM 10:24AM Routine History and Physical,Obe sity Clinical Notes Includes: Clinical Notes from this encounter No Clinical Notes Recorded
--- OUTSIDE RECORDS SUMMARY | 2025-02-21 11:43 | XMS_ITS ---
Author Organization [facility] Address [address] [place] [address] Phone Care Team Providers Care Ammonia Refrigeration Worker Name Role Phone Unavailable Unavailable Unavailable Plan of Treatment No Plan of Treatment Recorded Assessments Includes: Assessments for all patient encounters Findings Encounter Date Normal routine history and physical NEW PATIENT VISIT with ALEXANDRIA SERRANO D.O. 10/25/2013 Last Documented On 3 5:08PM ; [facility] Obesity NEW PATIENT VISIT with ALEXANDRIA SERRANO D.O. 10/25/2013 Last Documented On 3 5:08PM ; [facility] Eczematoid dermatitis SICK VISIT with JOESPH ROGER PA-C 10/26/2009 Last Documented On 9 9:48AM ; [facility] Hematoma (nontraumatic) of the scrotum P ROBLEM VISIT with SEYMOUR JUNIOR PA-C 06/17/2009 Last Documented On 9 10:18AM ; [facility] Medical Equipment - Implanted Devices Includes: Current and historical Devices No Medical Equipment Recorded Medications Includes: Current and historical Medications Past Medications on file Medrol (Stone) 4 MG OR TABS 10/26/2009 - 11/02/2009 Provider: JOESPH ANTON CH, PA-C Diagnosis: DERMATITIS NOS Last Documented On 9 9:48AM By JOESPH ROGER PA-C ; [facility] Triamcinolone Acetonide 0.5% EX CREA 10/26/2009 - 01/24/2010 Provider: JOESPH ANTON CH, PA-C Diagnosis: DERMATITIS NOS Last Documented On 9 9:48AM By JOESPH ROGER PA-C ; [facility] Medications Administered Includes: Administered Medications in patient's chart No Administered Medications Recorded Results Includes: Results from 02/22/2024 through 02/21/2025 No Results Recorded For Specified Dates History of Present Illness History of Present Illness not supported for this document type No History of Present Illness Recorded Social History Description Last Updated Currently 10/25/2013 Last Documented On 3 5:08PM ; [facility] No consumption of alcohol 10/25/2013 Last Documented On 3 5:08PM ; [facility] No tobacco use 10/25/2013 Last Documented On 3 5:08PM ; [facility] Not using drugs 10/25/2013 Last Documented On 3 5:08PM ; [facility] Exercise frequency WORK OUT CARDIIO /PRATEEK GHT 05/03/2009 Last Documented On 9 7:22PM ; [facility] Single 05/03/2009 Last Documented On 9 7:22PM ; [facility] Smoking Status Unknown Medical History Includes: Medical History in patient's chart Description Last Updated No reported easy bleeding 10/25/2013 Last Documented On 3 5:08PM ; [facility] No reported recurrent infections 013 Last Documented On 3 5:08PM ; [facility] No history of arthritis 05/03/2009 Last Documented On 9 7:22PM ; [facility] No history of cancer 05/03/2009 Last Documented On 9 7:22PM ; [facility] No history of chronic obstructive pulmon daphnie disease 05/03/2009 Last Documented On 9 7:22PM ; [facility] No history of convulsive disorder 2008 Last Documented On 9 7:22PM ; [facility] No history of diabetes mellitus 05/03/20 Last Documented On 9 7:22PM ; [facility] No history of hypertension 05/03/2009 Last Documented On 9 7:22PM ; [facility] No history of stroke syndrome 05/03/2009 Last Documented On 9 7:22PM ; [facility] No history of venereal disease 9 Last Documented On 9 7:22PM ; [facility] Surgery HERNIA 84 05/03/2009 Last Documented On 9 7:22PM ; [facility] Family History Includes: Family History in patient's chart Description Last Updated Father 66 years old 10/25/2013 Last Documented On 3 5:08PM ; [facility] Mother 65 years old 10/25/2013 Last Documented On 3 5:08PM ; [facility] Review of Systems Review of Systems not supported for this document type No Review of Systems Recorded Mental Status No Mental Status Recorded Functional Status No Functional Status Recorded Physical Exam Physical Exam not supported for this document type No Physical Exam Recorded Allergies Includes: Active, inactive, and resolved Allergies No Known Allergies Clinical Notes Includes: Signed Clinical Notes starting from 12/11/2022 No Clinical Notes Recorded
--- OUTSIDE RECORDS SUMMARY | 2025-02-21 11:43 | XMS_ITS ---
Care Plan - [facility] Created on: February 21, 2025 MEMO LOVE : 1980 Sex: Male Author Organization [facility] Address [address] [place] [address] Phone Care Team Providers Care Rattan Worker Name Role Phone Unavailable Unavailable Unavailable
--- OUTSIDE RECORDS SUMMARY | 2025-02-21 11:43 | XMS_ITS | Clinical Summary ---
Author Organization [facility] Address [address] [place] [address] Phone Care Team Providers Care Body And Fender Worker Name Role Phone Unavailable Unavailable Unavailable Reason for Visit and Chief Complaint LAB Plan of Treatment Pending Tests Order Diagnosis Results Due Ordering P rovider Lab 2 HR GTT 12/01/13 ALEXANDRIA CHRISTIANSEN D.OHema Last Documented On 4 11:51AM ; [facility] Assessments Includes: Assessments from this encounter No Assessments Recorded Medical Equipment - Implanted Devices Includes: Current Devices No Medical Equipment Recorded Medications Administered Includes: Administered Medications from this encounter No Administered Medications Recorded Results Includes: Results discussed during this encounter No Results Recorded For Specified Dates History of Present Illness Includes: History of Present Illness from this encounter No History of Present Illness Recorded Social History No Social History Recorded - [...] Location Date Check-In Time Check-Out Time Diagnosis LAB A[place]RIA SERRANO D.[facility] EMANUEL 4 9:55AM 11:59PM Clinical Notes Includes: Clinical Notes from this encounter No Clinical Notes Recorded
--- OUTSIDE RECORDS SUMMARY | 2025-02-21 11:44 | XMS_ITS | Clinical Summary ---
Author Organization [facility] Address [address] [place] [address] Phone Care Team Providers Care Vice President Investor Relations Name Role Phone Unavailable Unavailable Unavailable Reason for Visit and Chief Complaint visit for: bruising on his scrotum, noticed Wednesday/ Wednesday morning doesn't Know how it happened pain is minimal Plan of Treatment - SCROTUM HEMATOMA (NONTRAUMATIC) - Last Documented On 06/17/2009 10:18AM ; [facility] Lab: CBC - Last Documented On 06/17/2009 10:18AM ; [facility] They will observe the area and make sure that there is no worsening of s/s. Call or RTC if bruising does not resolve or pain becomes worse. - Last Documented On 06/17/2009 10:18AM ; [facility] Pending Tests Order Diagnosis Results Due Ordering P davida Lab CBC 09/15/09 SEYMOUR JUNIOR PA-C Last Documented On 9 3:10PM ; [facility] Assessments Includes: Assessments from this encounter Findings - Hematoma (nontraumatic) of the scrotum - Last Documented On 06/17/2009 10:18AM ; [facility] Medical Equipment - Implanted Devices Includes: Current Devices No Medical Equipment Recorded Medications Includes: Medications discussed during this encounter and other current Medications Past Medications on file Medrol (Stone) 4 MG OR TABS 10/26/2009 - 11/02/2009 Provider: JOESPH ANTON CH, PA-C Diagnosis: DERMATITIS NOS Last Documented On 9 9:48AM By JOESPH ROGER PA-C ; [facility] Triamcinolone Acetonide 0.5% EX CREA 10/26/2009 - 01/24/2010 Provider: JOESPH ANTON CH, PA-C Diagnosis: DERMATITIS NOS Last Documented On 9 9:48AM By JOESPH ROGER PA-C ; [facility] Medications Administered Includes: Administered Medications from this encounter No Administered Medications Recorded Vital Signs Includes: Vital Signs from this encounter Vital Name 06/17/2009 09:30A Blood Pressure Sitting (mmHg) 122/88 Pulse Rate-Sitting (bpm) 68 Respiration Rate (breaths/min) 18 Temp-Oral (F) 97.6 Weight (lb) 256 Last Documented: On 06/17/2009 9:25AM ; [facility] Results Includes: Results discussed during this encounter No Results Recorded For Specified Dates History of Present Illness Includes: History of Present Illness from this encounter MATTHEW LOVE is a 28 year old male. - Scrotal has bruising to scrotal area - Pain very mild pain - No scrotal swelling - No lump present for just a couple days. believes was not there the days prior to that. He has not been riding motor cycle, horseback riding or any activity of that sort that would cause bruising. He denies any trauma to the area. He says the pain is so mild that he probably wouldn't even notice if he hadn't seen the bruise. They are under going fertility testing. He has not noticed any other generalized bruising throughout the rest of his body Social History Description Last Updated Exercise frequency WORK OUT KELSEA /PRATEEK GHT 05/03/2009 Last Documented On 9 9:17AM ; [facility] Single 05/03/2009 Last Documented On 9 9:17AM ; [facility] Smoking Status Unknown Medical History Includes: Medical History addressed during this encounter Description Last Updated No history of arthritis 05/03/2009 Last Documented On 9 9:17AM ; [facility] No history of cancer 05/03/2009 Last Documented On 9 9:17AM ; [facility] No history of chronic obstructive pulmon daphnie disease 05/03/2009 Last Documented On 9 9:17AM ; [facility] No history of convulsive disorder 2008 Last Documented On 9 9:17AM ; [facility] No history of diabetes mellitus 05/03/20 09 Last Documented On 9 9:17AM ; [facility] No history of hypertension 05/03/2009 Last Documented On 9 9:17AM ; [facility] No history of stroke syndrome 05/03/2009 Last Documented On 9 9:17AM ; [facility] No history of venereal disease 9 Last Documented On 9 9:17AM ; [facility] Surgery HERNIA 84 05/03/2009 Last Documented On 9 9:17AM ; [facility] Family History Includes: Family History addressed during this encounter No Family History Recorded Review of Systems Includes: Review of Systems from this encounter Systemic: No fever. Otolaryngeal: No earache, no nasal discharge, and no sore throat. Cardiovascular: No chest pain or discomfort and no palpitations. Pulmonary: No cough and no wheezing. Gastrointestinal: Diarrhea was just in [place]. Soft stools brown in color after each meal. Has not had any blood or mucus in stool. and wouldn't really call it diarrhea. Genitourinary: No hematuria and no increase in urinary frequency. No dysuria. Genital lesion there is scrotal bruising present. Musculoskeletal: No localized joint pain. Skin: Skin lesion(s): scrotal bruising. Mental Status Includes: Mental Status from this encounter Description Oriented to time, place, and person Functional Status Includes: Functional Status from this encounter No Functional Status Recorded Physical Exam Includes: Physical Exam from this encounter Allergies Includes: Active Allergies No Known Allergies Encounters Encounter Provider Location Date Check-In Time Check-Out Time Diagnosis PROBLEM VISIT SEYMOUR JUNIOR PA-C [facility] CHON EMANUEL 06/17/20 09 9:09AM 11:59PM Scrotum Hematoma (Nontraumati c) Clinical Notes Includes: Clinical Notes from this encounter No Clinical Notes Recorded
[2025-02-21 11:45] LABS: Erythrocyte Sedimentation Rate 17 mm/hr (0-20)
[2025-02-25 19:14] LABS: Calprotectin, Stool 4730 mcg/g
== END 2025-02-21 10:23 | disposition home or self-care (01) ==
LOC: ANHLAB 10:23
PROVIDERS: PCP Emergency Medicine; Referring Provider Nurse Practitioner; Visit Provider Internal Medicine Gastroenterology
DX: K52.9 Noninfective gastroenteritis and colitis, unspecified (principal); K51.00 Ulcerative (chronic) pancolitis without complications
CPT/HCPCS: 36415; 80053; 83993; 85027; 85652; 86140; 87045; 87427; 87449

== ENCOUNTER 2025-03-13 14:46 | Outpatient (CLI) | payer BC, SELFPAY ==
--- NOTE | ~2025-03-13 | US_ITS ---
LEFT LOWER EXTREMITY VENOUS ULTRASOUND Ordering provider: Shahzad Fuentes MD History: . R60.0 - Localized edema . Comparison: None. FINDINGS: --COMMON FEMORAL: Thrombosed. --PROXIMAL SUPERFICIAL FEMORAL: Thrombosed. --DISTAL SUPERFICIAL FEMORAL: Thrombosed. --POPLITEAL: Thrombosed. --POSTERIOR TIBIAL: Thrombosed. --Gastrocnemius: Thrombosed. IMPRESSION: Deep vein thrombosis. Reviewed, dictated and finalized at location A. IMPRESSION: Deep vein thrombosis.
--- OUTSIDE RECORDS SUMMARY | 2025-03-13 17:04 | XMS_ITS | Continuity of Care Document ---
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 Role Phone Sanford Harvey MD Unavailable Unavailable Allergies, Adverse Reactions, Alerts Substance Reaction Status Criticality No Known Allergies Active No Inform ation Medications Medication Instructions Dosage Effective Dates (start - stop) Status Comments Protonix 40 mg tablet,delayed release take 1 tablet by oral route every day 40 MG - Active dicyclomine 20 mg tablet take 1 tablet by oral route 3 times every day as needed 20 MG - Active PRN for abd cramp and diarrhea Procedures Procedure Date OFFICE/OUTPATIENT VISIT, EST OFFICE/OUTPATIENT VISIT, EST PREV VISIT, NEW, AGE 40-64 OFFICE/OUTPATIENT VISIT, NEW PREV VISIT, NEW, AGE 18-39 Advance Directives Directive Yes / No Effective Date File Name No Information Encounters Encounter Description Practice Location Reason(s) For Visit Diagnoses Date Provider Providers Copied on Encounter OFFICE/OUTPA TIENT VISIT, EST [facility], [address] [place], [id number], [place] tel:[phone] [facility] GERD1 (chief complaint) colitis1 (chief complaint) HLP (chief complaint) fatty liver1 (chief complaint) Fatty liverEsophagitisAbn ormal level of alkaline phosphataseAbnormal weight lossOther ulcerative colitis without complications 4 Wes Christina. [address] [place] [id number] , [place]. tel:[phone] Referring Provider: [address], [place], [place], [id number]. tel:[phone] OFFICE/OUTPA TIENT VISIT, EST [facility], [address], [place], [place], [id number], [place] tel:[phone] [facility] BM (chief complaint) LFT (chief complaint) HLP (chief complaint) GERD w/o esophagitisChange in bowel habitMixed hyperlipidemiaLiver diseaseAbnormal level of alkaline phosphatase 4 Wes Christina. [address], [place], [place], [id number] , [place]. [phone] Referring Provider: [address], [place], [place], [id number]. tel:[phone] PREV VISIT, NEW, AGE 40-64 [facility], [address], [place], [place], [id number], [place] tel:[phone] [facility] physical (chief complaint) Encounter for general adult medical exam w abnormal findingsGERD w/o esophagitisChange in bowel habitPain in right knee 4 Wes Christina. [address], [place], [place], [id number] , [place]. [phone] Referring Provider: [address], [place], [place], [address]. tel:[phone] PREV VISIT, NEW, AGE 18-39 [facility], [address], [place], [place], [id number], [place] tel:[phone] [facility] Physical (chief complaint) Encntr for general adult medical exam w/o abnormal findings 8 Wes Christina. [address], [place], [place], [id number] , [place]. [phone] Referring Provider: [address], [place], [place], [id number]. tel:[phone] Family History Family Member Type Diagnosis Age At Onset Sister Problem (finding) Alive and well Paternal grandmother Problem (finding) colon CA (Cause Of ) 65 Father Problem (finding) Alive and well Maternal aunt Problem (finding) colon CA 60 Mother Problem (finding) Alive and well Payers Payer name Insurance type Covered constitution party ID Authoriza tion(s) No Information Social History Type Description Quantity Date Captured Comments Alcohol Use Details No Caffeine Use Details Unknown Tobacco Use Status Current non-smoker Smoking Status Never smoker Sex Male Vital Signs Date / Time: Height Weight BMI Pulse Rate Blood Pressure Temperature Respiratory Rate Body Surface Area Head Circumference BMI percentile Pulse Ox Inhaled Ox 10:51 AM 70.00 in 238.80 lbs 34.2 6 kg/m eter (2) 88 /min 110/70 mm[Hg] 98.0 F 16 /min Chief Complaint And Reason For Visit From encounter dated '04/11/2024 10:13'. GERD1 (chief complaint). Description: pt has GERD. EGD showed reflux esophagitis and he is on protonix now and doing ok Pt denies any nausea, vomiting colitis1 (chief complaint). Description: Pt had colonoscopy done which showed active colitis and lab showed possible UC. pt is on mesalamine now for several weeks now .Pt c/o periumbilical abdominal cramp with BM and also post food and he has been having watery diarrhea frequently, especially afterfood Pt denies any blood in stool. Pt has good appetite but food really bothers his stomach. Pt hasbeen losing weight. he has been having diarrhea 8-20 times per day recently. HLP (chief complaint) fatty liver1 (chief complaint). Description: Pt has fatty liver Pt has borderline high LFT Pt denies any abd pain Pt had negative hepatitis and also high liver alk phos. Pt denies any jaundice . Plan Of Treatment Date Type Action Status Goal Special diet education compl eted Referral Ordered: US EXAM, ABDOM, COMPLETE ordered Referral Ordered: COLONOSCOPY AND BIOPSY ordered Referral Ordered: Primo Foster -[facility] : Surgery (related to Encntr for general adult medical exam w/o abnormal findings) ordered Referral Referred To: Primo Foster [address] [place] [phone] Ordered: Referrals: [facility] : Surgery. Primo Foster. Evaluate and treat ordered History Of Present Illness Encounter Date Complaint History Of Prese nt Illness GERD1 pt has GERD. EGD showed reflux esophagitis and he is on protonix now and doing ok Pt denies any nausea, vomiting HLP colitis1 Pt had colonosco py done which showed active colitis and lab showed possible UC. pt is on mesalamine now for several weeks now .Pt c/o periumbilical abdominal cramp with BM and also post food and he has been having watery diarrhea frequently, especially after food Pt denies any blood in stool. Pt has good appetite but food really bothers his stomach. Pt has been losing weight. he has been having diarrhea 8-20 times per day recently. fatty liver1 Pt has fatty prachi er Pt has borderline high LFT Pt denies any abd pain Pt had negative hepatitis and also high liver alk phos. Pt denies any jaundice . HLP Pt has HLP Pt redding s been working on diet since last week LFT Pt has high LFT and hgh alk phos. Pt does not drink alcohol. Pt denies any abd pain or jaundice Pt has high alk phos BM Pt has frequent BM with loose stool without blood Pt denies any pain Pt has chronic GERD Pt has sam for EGD and colonoscopy soon. Pt states that his GERD is actually better and he is not taking any meds now physical Pt needs annual physical Pt c/o frequent BM for the past 3 weeks Pt denies any blood .Pt has been having loose stool Pt c/o lower abdominal cramp along with frequent BM as well Pt denies any incomplete emptying. Pt does have intermittent GERD. Pt was playing soccer 1.5 weeks ago and he thinks that somebody slid into his knee but he is not sure. He did notice a bruise around medial right knee the next day but the bruising resolved quickly .He denies any swelling. Pt c/o stiffness right knee sine the soccer game and he denies any pain Pt denies any knee redness or warmth Pt is able to put weight on right leg without any issue. Pt has chronic GERD, which is worse lately. Pt takes pepcid daily for long time. Pt denies any fever, chill, appetite loss, etc Physical Pt needs annual physical. Pt has intermittent eczema for several years. pt states that it usually flares up after excessive sunlight exposure. Pt denies any active symptoms. Pt c/o itching and dry skin when he exposes to sun. Pt notices a red spot next to his nose for 8 weeks. Initially it appears like a red bump with some clear pus and he went to ER and he was given bactroban topical and the bump resolved and he has a seemingly permanent red spot on right cheek. Pt has multiple skin tags left inner thigh for several years Pt denies any pain or bleeding. Pt also a small induration right hip area with some clear drainage from it intermittently. Pt denies any pain. Pt denies any other complaints Instructions Date Instruction Additional Infor mation Increase activity. Related to En cntr for general adult medical exam w/o abnormal findings Special diet education Related t o Body mass index (BMI) 36.0-36.9, adult Assessments Type Assessment Date assessment Fatty liver assessment Esophagitis assessment Abnormal level of alkaline phosp hatase assessment Abnormal weight loss assessment Other ulcerative colitis without complications Mental Status Date Cognitive Assessment Orientation - Katy ed to time, place, person, situation.
== END 2025-03-13 14:47 | disposition home or self-care (01) ==
LOC: ANHIMG 14:48
PROVIDERS: PCP Emergency Medicine; Visit Provider Internal Medicine Gastroenterology
DX: R60.0 Localized edema (principal); I26.99 Other pulmonary embolism without acute cor pulmonale
CPT/HCPCS: 93971

== ENCOUNTER 2025-03-13 17:41 | Emergency (ER) | payer BC, SELFPAY ==
[2025-03-13] VITALS (25 sets, daily range): BP systolic 111–142; BP diastolic 70–86; PULSE 72–102; RESP 12–23; TEMP 36.6; O2SAT 93–100
--- NOTE | ~2025-03-13 | CT_ITS ---
EXAMINATION: CTA chest PE protocol DATE: 03/13/2025 19:29 CDT INDICATION: Extensive left lower extremity deep venous thrombosis TECHNIQUE: Computed tomographic angiography (CTA) of the chest was performed with 100 mL Omnipaque-35 0 intravenous contrast. The dose-length product was 475.44 mGy-cm. Maximum intensity projection 3D-re constructions of the aorta and other arteries were constructed by the technologist on a separate work station. COMPARISON: None. FINDINGS/OBSERVATIONS: PULMONARY ARTERIES: Large filling defect within the right main pulmonary artery, extending into the r ight ascending and descending pulmonary arteries and into the segmental and subsegmental branches. Filling defect is also detected within the left ascending pulmonary artery and descending subsegmenta l branches. The main pulmonary artery is enlarged, consistent with pulmonary hypertension. THORACIC AORTA: No aneurysmal dilatation or dissection is present. The great vessels are intact LUNGS: The lungs are clear. MEDIASTINUM: No morphologically suspicious or pathologically enlarged lymph nodes are identified with in the mediastinum or bilateral axilla. BONES OF THE CHEST: No acute fracture. No significant degenerative disease. No lytic or blastic lesions. HEART: The heart is of normal size, without pericardial effusion. The RV to LV ratio is 1.04, consistent with right heart strain. IMPRESSION: Large bilateral pulmonary emboli with findings suggesting pulmonary hypertension. Right heart strain with elevated RV to LV ratio. These findings were discussed with REHANA De La Fuente at 7:30 PM on 03/13/2025. In addition, given the extensive left lower extremity deep venous thrombosis, interrogation of the ri t lower extremity is recommended for further evaluation. Reviewed, dictated and finalized at location A. IMPRESSION: Large bilateral pulmonary emboli with findings suggesting pulmonary hypertensio n. Right heart strain with elevated RV to LV ratio. These findings were discussed with REHANA De La Fuente at 7:30 PM on 03/13/2025. In addition, given the extensive left lower extremity deep venous thrombosis, i nterrogation of the right lower extremity is recommended for further evaluation .
--- NOTE | 2025-03-13 18:02 | ED.EXTPRO ---
HPI - Extremity Problem General Chief complaint: Extremity Problem,Nontraumatic <Filemon Simms PA-C - Last Filed: 03/13/25 23:01> Stated complaint: Confirmed blood clot in L leg <Filemon Simms PA-C - Last Filed: 03/13/25 23:01> Time Seen by Provider: 03/13/25 17:51 <Filemon Simms PA-C - Last Filed: 03/13/25 23:01> History of Present Illness HPI Narrative: This is a 44-year-old male with PMH of ulcerative colitis who presents to the ED for chief complaint of left leg swelling x1 month with outpatient ultrasound today showing left leg DVT. Was at GI appointment this morning when GI ordered this outpatient study. He is currently undergoing treatment for UC with biologics. States that he has been less active due to the UC but has not been admitted to the hospital or had recent surgery. Endorses some shortness of breath with exertion but likens this to being deconditioned. Denies chest pain, fevers, chills, back pain, pleuritic pain. <Filemon Simms PA-C - Last Filed: 03/13/25 23:01> Related Data Home medications: Home Medications ?Medication ?Instructions ?Recorded ?Confirmed ?Last Taken ?Type bismuth subsalicylate 262 mg/15 mL 524 mg PO Q1H PRN 05/01/24 02/28/25 Unknown History oral suspension (Pepto-Bismol) loperamide 1 mg/7.5 mL oral liquid 2 mg PO Q4H PRN 05/01/24 02/28/25 Unknown History (Imodium A-D) <Filemon Simms PA-C - Last Filed: 03/13/25 23:01> Allergies/Adverse reactions: Allergies Allergy/AdvReac Type Severity Reaction Status Date / Time [facility] Allergy Intermediate Chest Pain Verified 03/13/25 17:42 <Filemon Simms PA-C - Last Filed: 03/13/25 23:01> Review of Systems Review of Systems: All systems as dictated in HPI <ERNIE Ventura Last Filed: 03/13/25 23:01> PMFSH Past Medical History Medical History: Medical History (Updated 03/13/25 @ 20:53 by Filemon Simms PA-C) Leg edema, left Chronic diarrhea Colitis Weight loss Nausea and vomiting in adult <Filemon Simms PA-C - Last Filed: 03/13/25 23:01> Social History Social History: Social History Smoking status: Never smoker Alcohol intake: never Substance use: never Substance use type: does not use Living arrangements: with family Additional 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 HEAD: Normocephalic, atraumatic. EYES: PERRLA and EOMI. ENT: Nares clear, no rhinorrhea or epistaxis. Mucous membranes moist. Oropharynx without tonsillar hypertrophy exudate or other lesions. NECK: Supple. No adenopathy or masses. CHEST: No respiratory distress. Clear to auscultation. No wheezes rales or rhonchi HEART: Regular rate and rhythm. No murmur heard. Normal peripheral pulses. ABDOMEN: Soft, nontender, nondistended, normal active bowel sounds. MSK: Ambulatory without assistance. LLE: 2+ pitting edema from ankle to knee level. No erythema, calf tenderness. 5/5 strength and sensation distally. 2+ DP PT pulses bilaterally RLE: Benign SKIN: Warm, dry, no rash. NEURO: Alert and oriented x4. No focal deficits. PSYCH: Normal mood and affect. <Filemon Simms PA-C - Last Filed: 03/13/25 23:01> Course SUPER[employer]/PA Physician Supervision I agree with midlevel documentation; I performed the medical decision making component of this evaluation. I had independent [id number] time with the patient and performed my own independent evaluation and assessment. Patient presents with a positive ultrasound report for DVT as well as exertional difficulty in breathing and diaphoresis over last few weeks. He objectively does have evidence of a deep venous thrombosis with asymmetry in his leg. He has clear breath sounds, normal vital signs with any tachycardia, fever or hypoxia. CT angiography was ordered given his shortness of breath and he does have extensive clot burden. He does have right heart strain as well as his entire right lung appears to be with clot burden up to the right mainstem with involvement to the left peripheral vessels. Patient was re-evaluated and doing well on room air. No vital anomalies. Patient was informed of his diagnosis and started on a heparin drip. He has no history of significant GI bleeding but does have ulcerative colitis which is likely the pro inflammatory process leading to his blood clot formation is leg and chest. Patient will need transfer to a higher level of care tertiary center for potential is mechanical thrombectomy given the clot burden although he is currently hemodynamically stable. Emergency transfer center was made aware and the hospitalist team was spoken to about potential transfer. Transfer center was contacted again and hospitalist was spoken to. Patient was accepted to the CVICU at [facility]. Patient comfortable with transfer at this time and hemodynamically stable. ALS ambulance will be arranged. Patient remains on heparin drip at this time. <Reji Wolf MD - Last Filed: 03/13/25 22:01> Vital Signs Vital signs: Vital Signs Temperature 98 F 03/13/25 17:42 Pulse Rate 92 03/13/25 17:42 Respiratory Rate 18 03/13/25 17:42 Blood Pressure 113/73 03/13/25 17:42 Pulse Oximetry 100 03/13/25 17:42 Oxygen Delivery Room Air 03/13/25 17:42 Temperature 97.8 F 03/13/25 22:36 Pulse Rate 102 H 03/13/25 22:36 Respiratory Rate 18 03/13/25 22:36 Blood Pressure 111/70 03/13/25 22:36 Pulse Oximetry 98 03/13/25 22:36 Oxygen Delivery Room Air 03/13/25 17:42 <Filemon Simms PA-C - Last Filed: 03/13/25 23:01> Vital Signs Temperature 98 F 03/13/25 17:42 Pulse Rate 92 03/13/25 17:42 Respiratory Rate 18 03/13/25 17:42 Blood Pressure 113/73 03/13/25 17:42 Pulse Oximetry 100 03/13/25 17:42 Oxygen Delivery Room Air 03/13/25 17:42 Temperature 97.8 F 03/13/25 22:36 Pulse Rate 102 H 03/13/25 22:36 Respiratory Rate 18 03/13/25 22:36 Blood Pressure 111/70 03/13/25 22:36 Pulse Oximetry 98 03/13/25 22:36 Oxygen Delivery Room Air 03/13/25 17:42 <Reji Wolf MD - Last Filed: 03/13/25 22:01> MDM - Extremity (Nontraumatic) MDM Narrative Medical decision making narrative: This is a 44-year-old male who presents to the ED for chief complaint of diagnosed left-sided DVT for outpatient imaging today. Vitals are normal. Exam reveals lower extremity swelling but does not appear to be phlegmasia clinically. Lab work remarkable for mild anemia with hemoglobin of 12.6. CMP unremarkable. Pro BMP unremarkable. Troponin normal. CTA chest: IMPRESSION: Large bilateral pulmonary emboli with findings suggesting pulmonary hypertension. Right heart strain with elevated RV to LV ratio. These findings were discussed with REHANA De La Fuente at 7:30 PM on 03/13/2025. In addition, given the extensive left lower extremity deep venous thrombosis, interrogation of the right lower extremity is recommended for further evaluation. On re-evaluation, patient's vitals remain stable. He was started on heparin bolus and drip. Discussed the case with hospitalist, Dr. Melgoza ([facility]), who recommends transferred to the CVICU over at [facility]. No further medical recommendations at this time. He will be transferred in the setting of significant clot burden in potential benefit from being in a tertiary care facility where they can do thrombectomy, if he were to decompensate. Patient is understanding and agreeable with the plan for transfer at this time. <Filemon Simms PA-C - Last Filed: 03/13/25 23:01> Lab Data Result diagrams: 03/13/25 18:14 03/13/25 18:14 <Filemon Simms PA-C - Last Filed: 03/13/25 23:01> Labs: Lab Results 03/13/25 Range/Units 18:14 WBC 7.0 (4.5-10.0) K/mm3 RBC 4.46 L (4.6-6.20) M/mm3 Hgb 12.6 L (14.0-18.0) g/dL Hct 40.3 L (42.0-52.0) % MCV 90.4 (80-100) fl MCH 28.3 (26-34) pg MCHC 31.3 L (32-36) g/dl RDW 13.0 (11.5-14.5) % Plt Count 192 (150-375) k/mm3 MPV 9.4 (7.4-10.4) fl Immature Gran % (Auto) 0.3 (0-0.5) % Neut % (Auto) 72.6 (45.5-73.1) % Lymph % (Auto) 14.3 L (18.3-44.2) % [place] % (Auto) 5.7 (2.6-8.5) % Eos % (Auto) 6.4 H (0-4.4) % Baso % (Auto) 0.7 (0.2-1.2) % Lymph # (Auto) 1.00 (0.9-3.2) K/mm3 [place] # (Auto) 0.4 (0.1-0.6) K/mm3 Eos # (Auto) 0.5 H (0-0.3) K/mm3 Baso # (Auto) 0.1 (0.0-0.1) K/mm3 Abs Immat Gran (auto) 0.02 (0.00-0.031) K/mm3 Absolute Neuts (auto) 5.1 (1.3-6.7) K/mm3 Absolute Nucleated RBC 0.000 (0.0-0.012) K/mm3 Nucleated RBC % 0.0 (0.0-0.2) % PT 15.5 H (11.1-14.7) Seconds INR 1.2 APTT 34.7 (22.3-36.8) Seconds Sodium 141 (137-145) mmol/L Potassium 4.2 (3.4-5.0) mmol/L Chloride 105 (98-107) mmol/L Carbon Dioxide 29 (22-30) mmol/L Anion Gap 7 (4-12) mmol/L BUN 8 L (9-20) mg/dL Creatinine 0.95 (0.7-1.3) mg/dL Estim Creat Clear Calc 91 ml/min Estimated GFR > 60 (59 - ) Glucose 99 (65-110) mg/dL Calcium 8.9 (8.4-10.2) mg/dL Total Bilirubin 0.6 (0.2-1.3) mg/dL AST 25 (17-59) U/L ALT 39 (6-50) U/L Alkaline Phosphatase 84 (38-126) U/L Troponin I < 0.012 (0.000-0.034) ng/mL NT-Pro-B Natriuret Pep 132 H (19.9-100) pg/mL Total Protein 7.0 (6.3-8.2) g/dL Albumin 4.0 (3.5-5.1) g/dL <Filemon Simms PA-C - Last Filed: 03/13/25 23:01> Lab Results 03/13/25 Range/Units 18:14 WBC 7.0 (4.5-10.0) K/mm3 RBC 4.46 L (4.6-6.20) M/mm3 Hgb 12.6 L (14.0-18.0) g/dL Hct 40.3 L (42.0-52.0) % MCV 90.4 (80-100) fl MCH 28.3 (26-34) pg MCHC 31.3 L (32-36) g/dl RDW 13.0 (11.5-14.5) % Plt Count 192 (150-375) k/mm3 MPV 9.4 (7.4-10.4) fl Immature Gran % (Auto) 0.3 (0-0.5) % Neut % (Auto) 72.6 (45.5-73.1) % Lymph % (Auto) 14.3 L (18.3-44.2) % [place] % (Auto) 5.7 (2.6-8.5) % Eos % (Auto) 6.4 H (0-4.4) % Baso % (Auto) 0.7 (0.2-1.2) % Lymph # (Auto) 1.00 (0.9-3.2) K/mm3 [place] # (Auto) 0.4 (0.1-0.6) K/mm3 Eos # (Auto) 0.5 H (0-0.3) K/mm3 Baso # (Auto) 0.1 (0.0-0.1) K/mm3 Abs Immat Gran (auto) 0.02 (0.00-0.031) K/mm3 Absolute Neuts (auto) 5.1 (1.3-6.7) K/mm3 Absolute Nucleated RBC 0.000 (0.0-0.012) K/mm3 Nucleated RBC % 0.0 (0.0-0.2) % PT 15.5 H (11.1-14.7) Seconds INR 1.2 APTT 34.7 (22.3-36.8) Seconds Sodium 141 (137-145) mmol/L Potassium 4.2 (3.4-5.0) mmol/L Chloride 105 (98-107) mmol/L Carbon Dioxide 29 (22-30) mmol/L Anion Gap 7 (4-12) mmol/L BUN 8 L (9-20) mg/dL Creatinine 0.95 (0.7-1.3) mg/dL Estim Creat Clear Calc 91 ml/min Estimated GFR > 60 (59 - ) Glucose 99 (65-110) mg/dL Calcium 8.9 (8.4-10.2) mg/dL Total Bilirubin 0.6 (0.2-1.3) mg/dL AST 25 (17-59) U/L ALT 39 (6-50) U/L Alkaline Phosphatase 84 (38-126) U/L Troponin I < 0.012 (0.000-0.034) ng/mL NT-Pro-B Natriuret Pep 132 H (19.9-100) pg/mL Total Protein 7.0 (6.3-8.2) g/dL Albumin 4.0 (3.5-5.1) g/dL <Reji Wolf MD - Last Filed: 03/13/25 22:01> Critical Care Time Critical Care Time Critical Care Time: Yes <Reji Wolf MD - Last Filed: 03/13/25 22:01> Total Critical Care Time: 60 <Reji Wolf MD - Last Filed: 03/13/25 22:01> Discharge Plan Discharge Clinical Impression: Pulmonary emboli, Pulmonary arterial hypertension, DVT (deep venous thrombosis) <Filemon Simms PA-C - Last Filed: 03/13/25 23:01> Patient Disposition: Acute Care Hospital <Filemon Simms PA-C - Last Filed: 03/13/25 23:01> Condition: Serious <Filemon Simms PA-C - Last Filed: 03/13/25 23:01> Patient Language: Swedish <Filemon Simms PA-C - Last Filed: 03/13/25 23:01> Prescriptions: No Action loperamide [Imodium A-D] 1 mg/7.5 mL liquid 2 mg PO Q4H PRN Rx Instructions: administer after each loose stool until symptoms controlled; do not exceed 8 mg per 24 hrs bismuth subsalicylate [Pepto-Bismol] 262 mg/15 mL suspension 524 mg PO Q1H PRN Rx Instructions: do not exceed 8 doses in a 24 hour period hydrocortisone 2.5 % cream 1 applic topical BID Qty: 30 2RF budesonide 3 mg capsule,delayed,extend.release 6 mg PO DAILY Qty: 60 3RF (DME) diaper,brief,adult,disposable Misc See Rx Instructions .Route Qty: 120 0RF Rx Instructions: As directed Tremfya 200 mg/20 mL (10 mg/mL) solution 200 mg IV ONCE Rx Instructions: at week 0,4 and 8 mesalamine 4 gram/60 mL enema See Rx Instructions .ROUTE .COMPLEX Qty: 5040 1RF Dose Instruction: ADMINISTER 1 ENEMA BY RECTAL ROUTE EVERY DAY AT BEDTIME Rx Instructions: ADMINISTER 1 ENEMA BY RECTAL ROUTE EVERY DAY AT BEDTIME diphenoxylate-atropine [Lomotil] 2.5-0.025 mg tablet 1 tablet PO TID Qty: 60 3RF prednisolone 5 mg tablet 5 mg PO DAILY 30 Days Qty: 30 2RF hyoscyamine sulfate 0.125 mg tablet, sublingual See Rx Instructions .ROUTE .COMPLEX Qty: 360 5RF Dose Instruction: TAKE 0.125 MG (1 TABLET) SUBLINGUALLY FOUR TIMES DAILY Rx Instructions: TAKE 0.125 MG (1 TABLET) SUBLINGUALLY FOUR TIMES DAILY tramadol 50 mg tablet 50 mg PO Q6H PRN (Reason: pain) Qty: 60 1RF <Filemon Simms PA-C - Last Filed: 03/13/25 23:01> Follow-up/Referrals: Sanford Harvey MD [Primary Care Provider] - <Filemon Simms PA-C - Last Filed: 03/13/25 23:01> Time of Disposition: 22:01 <Filemon Simms PA-C - Last Filed: 03/13/25 23:01> 22:01 <Reji Wolf MD - Last Filed: 03/13/25 22:01>
--- NOTE | 2025-03-13 18:04 | ECG_ITS ---
Test Date: 2025-03-13 18:28:05 Measurements Intervals [place] Rate: 78 P: 37 VT: 138 QRS: -10 QRSD: 96 T: 9 QT: 377 QTc: 430 Interpretive Statements SINUS RHYTHM INCOMPLETE RIGHT BUNDLE BRANCH BLOCK MINIMAL Q WAVES- HIGH LATERAL LEADS BASELINE ARTIFACT- I, II, III, AVR, AVF BORDERLINE ECG No previous ECG available for comparison Electronically Signed On 03-13-2025 19:07:32 CDT by Irwin Ruano D.O.
[2025-03-13 18:20] LABS: Basophils Absolute Auto 0.1 K/mm3 (0.0-0.1); Basophils Percent Auto 0.7 % (0.2-1.2); Eosinophils Absolute Auto 0.5 K/mm3 (0-0.3); Eosinophils Percent Auto 6.4 % (0-4.4); Hematocrit 40.3 % (42.0-52.0); Hemoglobin 12.6 g/dL (14.0-18.0); Immature Granulocyte Absolute 0.02 K/mm3 (0.00-0.031); Immature Granulocyte Percent A 0.3 % (0-0.5); Lymphocytes Percent Auto 14.3 % (18.3-44.2); Mean Corpuscular HGB Conc 31.3 g/dl (32-36); Mean Corpuscular Hemoglobin 28.3 pg (26-34); Mean Corpuscular Volume 90.4 fl (80-100); Mean Platelet Volume 9.4 fl (7.4-10.4); Monocytes Absolute Auto 0.4 K/mm3 (0.1-0.6); Monocytes Percent Auto 5.7 % (2.6-8.5); Neutrophils Absolute Auto 5.1 K/mm3 (1.3-6.7); Neutrophils Percent Auto 72.6 % (45.5-73.1); Platelet Count Result 192 k/mm3 (150-375); Red Blood Count 4.46 M/mm3 (4.6-6.20)
--- OUTSIDE RECORDS SUMMARY | 2025-03-13 18:28 | XMS_ITS | Clinical Summary ---
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 Phone Unavailable Unavailable Unavailable Reason for Visit and Chief Complaint The Chief Complaint is: PT HAS EXCEMA ALL OVER HIS BODY, ITCHES, HURTS, LAST OUTBREAK THIS BAD WAS IN 2002 Plan of Treatment - ECZEMATOID DERMATITIS - Last Documented On 10/26/2009 9:48AM ; [facility] Medrol (Stone) 4 MG TABS, as directed, 7 days, 0 refills Triamcinolone Acetonide 0.5 % CREA, apply BID, 30 days, 2 refills - Last Documented On 10/26/2009 9:48AM ; [facility] Assessments Includes: Assessments from this encounter Findings - Eczematoid dermatitis - Last Documented On 10/26/2009 9:48AM ; [facility] Medical Equipment - Implanted Devices Includes: Current Devices No Medical Equipment Recorded Medications Includes: Medications discussed during this encounter and other current Medications New / Renewed during this visit JOESPH ROGER PA-C on 10/26/2009 Medrol (Stone) 4 MG OR TABS Provider: JOESPH Weiss 7 day supply: 1, 0 refills Diagnosis: DERM ATITIS NOS Pharmacy: [facility] - [address] [facility] [facility], [id number] - Last Documented On 9:48AM By JOESPH ROGER PA-C ; [facility] Triamcinolone Acetonide 0.5% EX CREA Provider: JOESPH ROGER PA-C 30 day supply: 45 gram, 2 refills Diagnosis: DERMATITIS NOS Pharmacy: [facility] - [address] [facility], [id number] - Last Documented On 9 9:48AM By JOESPH ROGER PA-C ; [facility] Medications Administered Includes: Administered Medications from this encounter No Administered Medications Recorded Vital Signs Includes: Vital Signs from this encounter Vital Name 10/26/2009 09:15A Blood Pressure Sitting L 110/80 BP Cuff Size Large Pulse Rate-Sitting (bpm) 64 Pulse Rhythm Regular Temp-Oral (F) 97.8 Weight (lb) 256 Last Documented: On 10/26/2009 9:29AM ; [facility] Results Includes: Results discussed [...] Time Diagnosis SICK VISIT JOESPH ROGER PA-C [facility] 10/26/20 09 9:12AM 11:59PM Eczematoid Dermatitis Clinical Notes Includes: Clinical Notes from this encounter No Clinical Notes Recorded
--- OUTSIDE RECORDS SUMMARY | 2025-03-13 18:29 | XMS_ITS | Clinical Summary ---
Author Organization [facility] Address [address] [place] [address] Phone Care Team Providers Care Internal Review And Audit Compliance Name Role Phone Unavailable Unavailable Unavailable Reason for Visit and Chief Complaint LAB Plan of Treatment Pending Tests Order Diagnosis Results Due Ordering P rovider Lab 2 HR GTT 12/01/13 ALEXANDRIA CHRISTIANSEN D.OHema Last Documented On 4 11:51AM ; [facility] Assessments Includes: Assessments from this encounter No [...] Check-Out Time Diagnosis LAB ALEXANDRIA SERRANO D.O. [facility] 4 9:55AM 11:59PM Clinical Notes Includes: Clinical Notes from this encounter No Clinical Notes Recorded
--- OUTSIDE RECORDS SUMMARY | 2025-03-13 18:29 | XMS_ITS | Clinical Summary ---
Author Organization [facility] Address [address] [place] [address] Phone Care Team Providers Care Golf Sales Manager Name Role Phone Unavailable Unavailable Unavailable Reason for Visit and Chief Complaint visit for: bruising on his scrotum, noticed Wednesday/ Wednesday morning doesn't Know how it happened pain is minimal Plan of Treatment - SCROTUM HEMATOMA (NONTRAUMATIC) - Last Documented On 06/17/2009 10:18AM ; [facility] Lab: CBC - Last Documented On 06/17/2009 10:18AM ; [facility] They will observe the area and make sure that there is no worsening of s/s. Call or RTC if bruising does not resolve or pain becomes worse. - Last Documented On 06/17/2009 10:18AM ; [facility] Pending Tests Order Diagnosis Results Due Ordering P davida Lab CBC 09/15/09 SEYMOUR JUNIOR PA-C Last Documented On 9 3:10PM ; [facility] Assessments Includes: Assessments from this encounter Findings - Hematoma (nontraumatic) of the scrotum - Last Documented On 06/17/2009 10:18AM ; [facility] Medical Equipment - Implanted Devices Includes: Current Devices No Medical Equipment Recorded Medications Includes: Medications discussed during this encounter and other current Medications Past Medications on file Medrol (Stone) 4 MG OR TABS 10/26/2009 - 11/02/2009 Provider: JOESPH ANTON CH, PA-C Diagnosis: DERMATITIS NOS Last Documented On 9 9:48AM By JOESPH ROGER PA-C ; [facility] Triamcinolone Acetonide 0.5% EX CREA 10/26/2009 - 01/24/2010 Provider: JOESPH ANTON CH, PA-C Diagnosis: DERMATITIS NOS Last Documented On 9 9:48AM By JOESPH ROGER PA-C ; [facility] Medications Administered Includes: Administered Medications from this encounter No Administered Medications Recorded Vital Signs Includes: Vital Signs from this encounter Vital Name 06/17/2009 09:30A Blood Pressure Sitting (mmHg) 122/88 Pulse Rate-Sitting (bpm) 68 Respiration Rate (breaths/min) 18 Temp-Oral (F) 97.6 Weight (lb) 256 Last Documented: On 06/17/2009 9:25AM ; [facility] Results Includes: Results discussed [...] 05/03/2009 Last Documented On 9 9:17AM ; [facility] Single 05/03/2009 Last Documented On 9 9:17AM ; [facility] Smoking Status Unknown Medical History Includes: Medical History addressed during this encounter Description Last Updated No history of arthritis 05/03/2009 Last Documented On 9 9:17AM ; [facility] No history of cancer 05/03/2009 Last Documented On 9 9:17AM ; [facility] No history of chronic obstructive pulmon daphnie disease 05/03/2009 Last Documented On 9 9:17AM ; [facility] No history of convulsive disorder 2008 Last Documented On 9 9:17AM ; [facility] No history of diabetes mellitus 05/03/20 09 Last Documented On 9 9:17AM ; [facility] No history of hypertension 05/03/2009 Last Documented On 9 9:17AM ; [facility] No history of stroke syndrome 05/03/2009 Last Documented On 9 9:17AM ; [facility] No history of venereal disease 9 Last Documented On 9 9:17AM ; [facility] Surgery HERNIA 84 05/03/2009 Last Documented On 9 9:17AM ; [facility] Family History Includes: Family History [...] Time Diagnosis PROBLEM VISIT SEYMOUR JUNIOR PA-C [facility] E[facility]EL 06/17/20 09 9:09AM 11:59PM Scrotum Hematoma (Nontraumati c) Clinical Notes Includes: Clinical Notes from this encounter No Clinical Notes Recorded
--- OUTSIDE RECORDS SUMMARY | 2025-03-13 18:29 | XMS_ITS ---
Author Organization [facility] Address [address] [place] [address] Phone Care Team Providers Care Custom Leather Products Maker Name Role Phone Unavailable Unavailable Unavailable Plan of Treatment No Plan of Treatment Recorded Assessments Includes: Assessments for all patient encounters Findings Encounter Date Normal routine history and physical NEW PATIENT VISIT with ALEXANDRIA SERRANO D.O. 10/25/2013 Last Documented On 3 5:08PM ; [facility] Obesity NEW PATIENT VISIT with ALEXANDRIA SERRANO D.O. 10/25/2013 Last Documented On 3 5:08PM ; [facility] Eczematoid dermatitis SICK VISIT with JOESPH ROGER PA-C 10/26/2009 Last Documented On 9 9:48AM ; [facility] Hematoma (nontraumatic) of the scrotum P ROBLEM VISIT with SEYMOUR JUNIOR PA-C 06/17/2009 Last Documented On 9 10:18AM ; [facility] Medical Equipment - Implanted Devices Includes: Current and historical Devices No Medical Equipment Recorded Medications Includes: Current and historical Medications Past Medications on file Medrol (Stone) 4 MG OR TABS 10/26/2009 - 11/02/2009 Provider: JOESPH ANTON CH, PA-C Diagnosis: DERMATITIS NOS Last Documented On 9 9:48AM By JOESPH ROGER PA-C ; [facility] Triamcinolone Acetonide 0.5% EX CREA 10/26/2009 - 01/24/2010 Provider: JOESPH ANTON CH, PA-C Diagnosis: DERMATITIS NOS Last Documented On 9 9:48AM By JOESPH ROGER PA-C ; [facility] Medications Administered Includes: Administered Medications in patient's chart No Administered Medications Recorded Results Includes: Results from 03/13/2024 through 03/13/2025 No Results Recorded For Specified Dates History of Present Illness History of Present Illness not supported for this document type No History of Present Illness Recorded Social History Description Last Updated Currently 10/25/2013 Last Documented On 3 5:08PM ; [facility] No consumption of alcohol 10/25/2013 Last Documented On 3 5:08PM ; [facility] No tobacco use 10/25/2013 Last Documented On 3 5:08PM ; [facility] Not using drugs 10/25/2013 Last Documented On 3 5:08PM ; [facility] Exercise frequency WORK OUT CARDIIO /PRATEEK GHT 05/03/2009 Last Documented On 9 7:22PM ; [facility] Single 05/03/2009 Last Documented On 9 7:22PM ; [facility] Smoking Status Unknown Medical History Includes: Medical History in patient's chart Description Last Updated No reported easy bleeding 10/25/2013 Last Documented On 3 5:08PM ; [facility] No reported recurrent infections 013 Last Documented On 3 5:08PM ; [facility] No history of arthritis 05/03/2009 Last Documented On 9 7:22PM ; [facility] No history of cancer 05/03/2009 Last Documented On 9 7:22PM ; [facility] No history of chronic obstructive pulmon daphnie disease 05/03/2009 Last Documented On 9 7:22PM ; [facility] No history of convulsive disorder 2008 Last Documented On 9 7:22PM ; [facility] No history of diabetes mellitus 05/03/20 Last Documented On 9 7:22PM ; [facility] No history of hypertension 05/03/2009 Last Documented On 9 7:22PM ; [facility] No history of stroke syndrome 05/03/2009 Last Documented On 9 7:22PM ; [facility] No history of venereal disease 9 Last Documented On 9 7:22PM ; [facility] Surgery HERNIA 84 05/03/2009 Last Documented On 9 7:22PM ; [facility] Family History Includes: Family History in patient's chart Description Last Updated Father 66 years old 10/25/2013 Last Documented On 3 5:08PM ; [facility] Mother 65 years old 10/25/2013 Last Documented On 3 5:08PM ; [facility] Review of Systems Review of Systems not [...]
--- OUTSIDE RECORDS SUMMARY | 2025-03-13 18:29 | XMS_ITS | Continuity of Care Document ---
Author Organization [facility] Address [address] [place] [address] Phone Care Team Providers Care Service Center Specialist Name Role Phone Sanford Harvey MD Unavailable [...] Copied on Encounter OFFICE/OUTPA TIENT VISIT, EST [facility], [address], [id number], [place] tel:[phone] [facility] GERD1 (chief complaint) colitis1 (chief complaint) HLP (chief complaint) fatty liver1 (chief complaint) Fatty liverEsophagitisAbn ormal level of alkaline phosphataseAbnormal weight lossOther ulcerative colitis without complications 4 Wes Christina. [address], [place], [id number] , [place]. tel:[phone] Referring Provider: [address], [place], [place], [id number]. tel:[phone] OFFICE/OUTPA TIENT VISIT, EST [facility], [address], [place], [place], [address], [place] tel:[phone] [facility] BM (chief complaint) LFT (chief complaint) HLP (chief complaint) GERD w/o esophagitisChange in bowel habitMixed hyperlipidemiaLiver diseaseAbnormal level of alkaline phosphatase 4 Wes Christina. [address], [place], [place], [id number] , [place]. [phone] Referring Provider: [address], [place], [place], [id number]. tel:[phone] PREV VISIT, NEW, AGE 40-64 [facility], [address], [place], [place], [address], [place] tel:[phone] [facility] physical (chief complaint) Encounter for general adult medical exam w abnormal findingsGERD w/o esophagitisChange in bowel habitPain in right knee 4 Wes Christina. [address], [place], [place], [address] , [place]. [phone] Referring Provider: [address], [place], [place], [id number]. tel:[phone] PREV VISIT, NEW, AGE 18-39 [facility], [address], [place], [place], [address], [place] tel:[phone] [facility] Physical (chief complaint) Encntr for general adult medical exam w/o abnormal findings 8 Wes Christina. [address], [place], [place], [address] , [place]. tel: [phone] Referring Provider: [address], [place], [place], [id number]. tel:[phone] Family History Family Member Type Diagnosis Age At Onset Sister Problem (finding) Alive and well Paternal grandmother Problem (finding) colon CA (Cause Of ) 65 Father Problem (finding) Alive and well Maternal aunt Problem (finding) colon CA 60 Mother Problem (finding) Alive and well Payers Payer name Insurance type Covered republican ID Authoriza tion(s) No Information Social History [...] findings) ordered Referral Referred To: Primo Foster [address] [place] [phone] Ordered: Referrals: Allopathic & Osteopathic Physicians : [...] alk phos. Pt denies any jaundice . BM Pt has frequent BM with loose stool without blood Pt denies any pain Pt has chronic GERD Pt has sam for EGD and colonoscopy soon. Pt states that his GERD is actually better and he is not taking any meds now LFT Pt has high LFT and hgh alk phos. Pt does not drink alcohol. Pt denies any abd pain or jaundice Pt has high alk phos HLP Pt has HLP Pt redding s been working on diet since last week physical Pt needs annual physical Pt c/o [...] complaints Instructions Date Instruction Additional Infor mation Special diet education Related t o Body mass index (BMI) 36.0-36.9, adult Increase activity. Related to En cntr for general adult medical exam w/o abnormal findings Assessments Type Assessment Date assessment Fatty liver assessment Esophagitis assessment Abnormal level of alkaline phosp hatase assessment Abnormal weight loss assessment Other ulcerative colitis without complications Mental Status Date Cognitive Assessment Orientation - Assonet ed to time, place, person, situation.
--- OUTSIDE RECORDS SUMMARY | 2025-03-13 18:29 | XMS_ITS ---
Care Plan - [facility] Created on: March 13, 2025 MEMO LOVE : 1980 Sex: Male Author Organization [facility] Address [address] [place] [address] Phone Care Team Providers Care Director Of Cath Lab Name Role Phone Unavailable Unavailable Unavailable
--- OUTSIDE RECORDS SUMMARY | 2025-03-13 18:29 | XMS_ITS | Clinical Summary ---
Author Organization [facility] Address [address] [place] [address] Phone Care Team Providers Care Extrusion Process Operator Name Role Phone Unavailable Unavailable Unavailable Reason for Visit and Chief Complaint visit for: THE PATIENT IS A NEW PATIENT WHO IS HERE FOR A PREVENTATIVE CARE VISIT. HE DENIES CHEST PAIN/DYSPNEA. 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 NORMAL ROUTINE HISTORY AND PHYSICALLab: Lipid PanelLab: Glucose, Serum - 6745 - Glucose - Last Documented On 10/25/2013 5:08PM ; [facility] Pending Tests Order Diagnosis Results Due Ordering Zuleyma higuera Lab Lipid Panel 10/25/13 ALEXANDRIA A CRAN CER D.O. Last Documented On 3 10:18AM ; [facility] Lab Glucose, Serum 10/25/13 ALEXANDRIA Lisa C RANCER D.O. Last Documented On 3 10:18AM ; [facility] Lab GLUCOSE 10/25/13 ALEXANDRIA A CRANC ER D.O. Last Documented On 3 10:18AM ; [facility] Lab LIPID PANEL 10/25/13 ALEXANDRIA A CRAN CER D.O. Last Documented On 3 10:18AM ; [facility] Lab 2 HR GTT 10/25/13 ALEXANDRIA A CRANC ER D.O. Last Documented On 4 9:57AM ; [facility] Assessments Includes: Assessments from this encounter Findings - Normal routine history and physical - Last Documented On 10/25/2013 5:08PM ; [facility] - Obesity - Last Documented On 10/25/2013 5:08PM ; [facility] Medical Equipment - Implanted Devices Includes: Current Devices No Medical Equipment Recorded Medications Includes: Medications discussed during this encounter and other current Medications Past Medications on file Medrol (Stone) 4 MG OR TABS 10/26/2009 - 11/02/2009 Provider: JOESPH ANTON CH, PA-C Diagnosis: DERMATITIS NOS Last Documented On 9 9:48AM By JOESPH ROGER PA-C ; [facility] Triamcinolone Acetonide 0.5% EX CREA 10/26/2009 - 01/24/2010 Provider: JOESPH ANTON CH, PA-C Diagnosis: DERMATITIS NOS Last Documented On 9 9:48AM By JOESPH ROGER PA-C ; [facility] Medications Administered Includes: Administered Medications from [...] 2.4 Last Documented: On 10/25/2013 9:49AM ; [facility] Results Includes: Results discussed during this encounter No Results Recorded For Specified Dates History of Present Illness Includes: History of Present Illness from this encounter MATTHEW LOVE is a 33 year old male. - Feeling overweight. - No cardiovascular symptoms. - No pulmonary symptoms. - No musculoskeletal symptoms. Social History Description Last Updated Currently 10/25/2013 Last Documented On 3 5:08PM ; [facility] No consumption of alcohol 10/25/2013 Last Documented On 3 5:08PM ; [facility] No tobacco use 10/25/2013 Last Documented On 3 5:08PM ; [facility] Not using drugs 10/25/2013 Last Documented On 3 5:08PM ; [facility] Smoking Status Unknown Procedures [...] WEEK Last Documented On 3 5:07PM ; [facility] Medical History Includes: Medical History addressed during this encounter Description Last Updated No reported easy bleeding 10/25/2013 Last Documented On 3 5:08PM ; [facility] No reported recurrent infections 013 Last Documented On 3 5:08PM ; [facility] No history of arthritis 05/03/2009 Last Documented On 3 9:36AM ; [facility] No history of cancer 05/03/2009 Last Documented On 3 9:36AM ; [facility] No history of chronic obstructive pulmon daphnie disease 05/03/2009 Last Documented On 3 9:36AM ; [facility] No history of convulsive disorder 2008 Last Documented On 3 9:36AM ; [facility] No history of diabetes mellitus 05/03/20 09 Last Documented On 3 9:36AM ; [facility] No history of hypertension 05/03/2009 Last Documented On 3 9:36AM ; [facility] No history of stroke syndrome 05/03/2009 Last Documented On 3 9:36AM ; [facility] No history of venereal disease 9 Last Documented On 3 9:36AM ; [facility] Surgery HERNIA 84 05/03/2009 Last Documented On 3 9:36AM ; [facility] Family History Includes: Family History addressed during this encounter Description Last Updated Father 66 years old 10/25/2013 Last Documented On 3 5:08PM ; [facility] Mother 65 years old 10/25/2013 Last Documented On 3 5:08PM ; [facility] Review of Systems Includes: Review of [...] Diagnosis NEW PATIENT VISIT ALEXANDRIA SERRANO D.O. [facility] 10/25/20 13 9:23AM 10:24AM Routine History and Physical,Obe sity Clinical Notes Includes: Clinical Notes from this encounter No Clinical Notes Recorded
--- OUTSIDE RECORDS SUMMARY | 2025-03-13 18:29 | XMS_ITS | Clinical Summary ---
Author Organization [facility] Address [address] [place] [address] Phone Care Team Providers Care Moshgiach Name Role Phone Unavailable Unavailable Unavailable Reason [...] 05/03/2009 Last Documented On 9 7:22PM ; [facility] Single 05/03/2009 Last Documented On 9 7:22PM [...] Time Diagnosis CHART UPDATE ALEXANDRIA SERRANO D.O. [facility] 05/03/20 09 7:19PM 11:59PM Clinical Notes Includes: Clinical Notes from this encounter No Clinical Notes Recorded
[2025-03-13 18:30] LABS: Alanine Aminotransferase 39 U/L (6-50); Alkaline Phosphatase 84 U/L (38-126); Anion Gap 7 mmol/L (4-12); Aspartate Amino Transferase 25 U/L (17-59); Bilirubin,Total 0.6 mg/dL (0.2-1.3); Blood Urea Nitrogen 8 mg/dL (9-20); Calcium 8.9 mg/dL (8.4-10.2); Carbon Dioxide 29 mmol/L (22-30); Chloride 105 mmol/L (98-107); Estimated CRCL calculation 91 ml/min; Estimated Glomerular Filt Rate > 60; Glucose 99 mg/dL (65-110); Potassium 4.2 mmol/L (3.4-5.0); Sodium 141 mmol/L (137-145)
--- OUTSIDE RECORDS SUMMARY | 2025-03-13 18:41 | XMS_ITS | Continuity of Care Document ---
Author Organization [facility] Address [address] [place] [address] [place] [address] Phone Care Team Providers Care Registered Nurse Midwife Name Role Phone Sanford Harvey MD Unavailable [...] Copied on Encounter OFFICE/OUTPA TIENT VISIT, EST [facility], [address], [place], [id number], [place] tel:[phone] [facility] GERD1 (chief complaint) colitis1 (chief complaint) HLP (chief complaint) fatty liver1 (chief complaint) Fatty liverEsophagitisAbn ormal level of alkaline phosphataseAbnormal weight lossOther ulcerative colitis without complications 4 Wes Christina. [address], [place], [address] , [place]. tel:[phone] Referring Provider: [address], [place], [place], [address]. tel:[phone] OFFICE/OUTPA TIENT VISIT, EST [facility], [address], [place], [place], [address], [place] tel:[phone] [facility] BM (chief complaint) LFT (chief complaint) HLP (chief complaint) GERD w/o esophagitisChange in bowel habitMixed hyperlipidemiaLiver diseaseAbnormal level of alkaline phosphatase 4 Wes Christina. [address], [place], [place], [address] , [place]. [phone] Referring Provider: [address], [place], [place], [id number]. tel:[phone] PREV VISIT, NEW, AGE 40-64 [facility], [address], [place], [place], [address], [place] tel:[phone] [facility] physical (chief complaint) Encounter for general adult medical exam w abnormal findingsGERD w/o esophagitisChange in bowel habitPain in right knee 4 Wes Christina. [address], [place], [place], [address] , [place]. [phone] Referring Provider: [address], [place], [place], [address]. tel:[phone] PREV VISIT, NEW, AGE 18-39 [facility], [address], [place], [place], [address], [place] tel:[phone] [facility] Physical (chief complaint) Encntr for general adult medical exam w/o abnormal findings 8 Wes Christina. [address], [place], [place], [address] , [place]. [phone] Referring Provider: [address], [place], [place], [address]. tel:[phone] Family History Family Member Type Diagnosis Age At Onset Sister Problem (finding) Alive and well Paternal grandmother Problem (finding) colon CA (Cause Of ) 65 Father Problem (finding) Alive and well Maternal aunt Problem (finding) colon CA 60 Mother Problem (finding) Alive and well Payers Payer name Insurance type Covered green party ID Authoriza tion(s) No Information Social [...] findings) ordered Referral Referred To: Primo Foster [address] Robert Crane ID [id number] Ordered: Referrals: Allopathic & Osteopathic Physicians : [...] Mental Status Date Cognitive Assessment Orientation - [place] ed to time, place, person, situation.
--- OUTSIDE RECORDS SUMMARY | 2025-03-13 18:41 | XMS_ITS | Clinical Summary ---
Author Organization [facility] Address [address] [place] [address] Phone Care Team Providers Care Network Control Operators Supervisor Name Role Phone Unavailable Unavailable Unavailable Reason for Visit and Chief Complaint The Chief Complaint is: PT HAS EXCEMA ALL OVER HIS BODY, ITCHES, HURTS, LAST OUTBREAK THIS BAD WAS IN 2002 Plan of Treatment - ECZEMATOID DERMATITIS - Last Documented On 10/26/2009 9:48AM ; [facility] Medrol (Stone) 4 MG TABS, as directed, 7 days, 0 refills Triamcinolone Acetonide 0.5 % CREA, apply BID, 30 days, 2 refills - Last Documented On 10/26/2009 9:48AM ; [facility] Assessments Includes: Assessments from this encounter Findings - Eczematoid dermatitis - Last Documented On 10/26/2009 9:48AM ; [facility] Medical Equipment - Implanted Devices Includes: Current Devices No Medical Equipment Recorded Medications Includes: Medications discussed during this encounter and other current Medications New / Renewed during this visit JOESPH ROGER PA-C on 10/26/2009 Medrol (Stone) 4 MG OR TABS Provider: JOESPH Weiss 7 day supply: 1, 0 refills Diagnosis: DERM ATITIS NOS Pharmacy: [facility] - [address] [facility] [place], [id number] - Last Documented On 9:48AM By JOESPH ROGER PA-C ; [facility] Triamcinolone Acetonide 0.5% EX CREA Provider: JOESPH ROGER PA-C 30 day supply: 45 gram, 2 refills Diagnosis: DERMATITIS NOS Pharmacy: [facility] - [address] [facility] [place], [address] - Last Documented On 9 9:48AM By JOESPH ROGER PA-C ; [facility] Medications Administered Includes: Administered Medications from this encounter No Administered Medications Recorded Vital Signs Includes: Vital Signs from this encounter Vital Name 10/26/2009 09:15A Blood Pressure Sitting L 110/80 BP Cuff Size Large Pulse Rate-Sitting (bpm) 64 Pulse Rhythm Regular Temp-Oral (F) 97.8 Weight (lb) 256 Last Documented: On 10/26/2009 9:29AM ; [facility] Results Includes: Results discussed [...] Time Diagnosis SICK VISIT JOESPH ROGER PA-C [facility] 10/26/20 09 9:12AM 11:59PM Eczematoid Dermatitis Clinical Notes Includes: Clinical Notes from this encounter No Clinical Notes Recorded
--- OUTSIDE RECORDS SUMMARY | 2025-03-13 18:41 | XMS_ITS | Clinical Summary ---
Author Organization [facility] Address [address] [place] [address] Phone Care Team Providers Care Front Office Coordinator Name Role Phone Unavailable Unavailable Unavailable Reason for Visit and Chief Complaint LAB Plan of Treatment Pending Tests Order Diagnosis Results Due Ordering P rovider Lab 2 HR GTT 12/01/13 ALEXANDRIA CHRISTIANSEN D.OHema Last Documented On 4 11:51AM ; [facility] Assessments Includes: Assessments from this encounter [...] Check-Out Time Diagnosis LAB ALEXANDRIA SERRANO D.O. [facility] CHON EMANUEL 4 9:55AM 11:59PM Clinical Notes Includes: Clinical Notes from this encounter No Clinical Notes Recorded
[2025-03-13 18:42] LABS: NT Pro B Type Natriuretic Pept 132 pg/mL (19.9-100); Troponin I < 0.012 ng/mL (0.000-0.034)
--- OUTSIDE RECORDS SUMMARY | 2025-03-13 18:42 | XMS_ITS | Clinical Summary ---
Author Organization [facility] Address [address] [place] [address] Phone Care Team Providers Care Sap Basis Administrator Name Role Phone Unavailable Unavailable Unavailable Reason for Visit and Chief Complaint visit for: THE PATIENT IS A NEW PATIENT WHO IS HERE FOR A PREVENTATIVE CARE VISIT. HE DENIES CHEST PAIN/DYSPNEA. 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 NORMAL ROUTINE HISTORY AND PHYSICALLab: Lipid PanelLab: Glucose, Serum - 6745 - Glucose - Last Documented On 10/25/2013 5:08PM ; [facility] Pending Tests Order Diagnosis Results Due Ordering Zuleyma higuera Lab Lipid Panel 10/25/13 ALEX[place]RIA A CRAN CER D.O. Last Documented On 3 10:18AM ; [facility] Lab Glucose, Serum 10/25/13 [place] Lisa C RANCER D.O. Last Documented On 3 10:18AM ; [facility] Lab GLUCOSE 10/25/13 [place]RIA A CRANC ER D.O. Last Documented On 3 10:18AM ; [facility] Lab LIPID PANEL 10/25/13 A[place]RIA A CRAN CER D.O. Last Documented On 3 10:18AM ; [facility] Lab 2 HR GTT 10/25/13 A[place]RIA A CRANC ER D.O. Last Documented On 4 9:57AM ; [facility] Assessments Includes: Assessments from this encounter Findings - Normal routine history and physical - Last Documented On 10/25/2013 5:08PM ; [facility] - Obesity - Last Documented On 10/25/2013 5:08PM ; [facility] Medical Equipment - Implanted Devices Includes: Current Devices No Medical Equipment Recorded Medications Includes: Medications discussed during this encounter and other current Medications Past Medications on file Medrol (Stone) 4 MG OR TABS 10/26/2009 - 11/02/2009 Provider: JOESPH ANTON CH, PA-C Diagnosis: DERMATITIS NOS Last Documented On 9 9:48AM By JOESPH ROGER PA-C ; [facility] Triamcinolone Acetonide 0.5% EX CREA 10/26/2009 - 01/24/2010 Provider: JOESPH ANTON CH, PA-C Diagnosis: DERMATITIS NOS Last Documented On 9 9:48AM By JOESPH ROGER PA-C ; [facility] Medications Administered Includes: Administered Medications [...] 2.4 Last Documented: On 10/25/2013 9:49AM ; [facility] Results Includes: Results discussed during this encounter No Results Recorded For Specified Dates History of Present Illness Includes: History of Present Illness from this encounter MATTHEW LOVE is a 33 year old male. - Feeling overweight. - No cardiovascular symptoms. - No pulmonary symptoms. - No musculoskeletal symptoms. Social History Description Last Updated Currently 10/25/2013 Last Documented On 3 5:08PM ; [facility] No consumption of alcohol 10/25/2013 Last Documented On 3 5:08PM ; [facility] No tobacco use 10/25/2013 Last Documented On 3 5:08PM ; [facility] Not using drugs 10/25/2013 Last Documented On 3 5:08PM ; [facility] Smoking Status Unknown Procedures [...] WEEK Last Documented On 3 5:07PM ; [facility] Medical History Includes: Medical History addressed during this encounter Description Last Updated No reported easy bleeding 10/25/2013 Last Documented On 3 5:08PM ; [facility] No reported recurrent infections 013 Last Documented On 3 5:08PM ; [facility] No history of arthritis 05/03/2009 Last Documented On 3 9:36AM ; [facility] No history of cancer 05/03/2009 Last Documented On 3 9:36AM ; [facility] No history of chronic obstructive pulmon daphnie disease 05/03/2009 Last Documented On 3 9:36AM ; [facility] No history of convulsive disorder 2008 Last Documented On 3 9:36AM ; [facility] No history of diabetes mellitus 05/03/20 09 Last Documented On 3 9:36AM ; [facility] No history of hypertension 05/03/2009 Last Documented On 3 9:36AM ; [facility] No history of stroke syndrome 05/03/2009 Last Documented On 3 9:36AM ; [facility] No history of venereal disease 9 Last Documented On 3 9:36AM ; [facility] Surgery HERNIA 84 05/03/2009 Last Documented On 3 9:36AM ; [facility] Family History Includes: Family History addressed during this encounter Description Last Updated Father 66 years old 10/25/2013 Last Documented On 3 5:08PM ; [facility] Mother 65 years old 10/25/2013 Last Documented On 3 5:08PM ; [facility] Review of Systems Includes: Review [...] Diagnosis NEW PATIENT VISIT ALEXANDRIA SERRANO D.O. [facility] 10/25/20 13 9:23AM 10:24AM Routine History and Physical,Obe sity Clinical Notes Includes: Clinical Notes from this encounter No Clinical Notes Recorded
--- OUTSIDE RECORDS SUMMARY | 2025-03-13 18:42 | XMS_ITS | Clinical Summary ---
Author Organization [facility] Address [address] [place] [address] Phone Care Team Providers Care Global Ceo Name Role Phone Unavailable Unavailable Unavailable Reason for Visit and Chief Complaint visit for: bruising on his scrotum, noticed Wednesday/ Wednesday morning doesn't Know how it happened pain is minimal Plan of Treatment - SCROTUM HEMATOMA (NONTRAUMATIC) - Last Documented On 06/17/2009 10:18AM ; [facility] Lab: CBC - Last Documented On 06/17/2009 10:18AM ; [facility] They will observe the area and make sure that there is no worsening of s/s. Call or RTC if bruising does not resolve or pain becomes worse. - Last Documented On 06/17/2009 10:18AM ; [facility] Pending Tests Order Diagnosis Results Due Ordering P davida Lab CBC 09/15/09 SEYMOUR JUNIOR PA-C Last Documented On 9 3:10PM ; [facility] Assessments Includes: Assessments from this encounter Findings - Hematoma (nontraumatic) of the scrotum - Last Documented On 06/17/2009 10:18AM ; [facility] Medical Equipment - Implanted Devices Includes: Current Devices No Medical Equipment Recorded Medications Includes: Medications discussed during this encounter and other current Medications Past Medications on file Medrol (Stone) 4 MG OR TABS 10/26/2009 - 11/02/2009 Provider: JOESPH ANTON CH, PA-C Diagnosis: DERMATITIS NOS Last Documented On 9 9:48AM By JOESPH ROGER PA-C ; [facility] Triamcinolone Acetonide 0.5% EX CREA 10/26/2009 - 01/24/2010 Provider: JOESPH ANTON CH, PA-C Diagnosis: DERMATITIS NOS Last Documented On 9 9:48AM By JOESPH ROGER PA-C ; [facility] Medications Administered Includes: Administered Medications from this encounter No Administered Medications Recorded Vital Signs Includes: Vital Signs from this encounter Vital Name 06/17/2009 09:30A Blood Pressure Sitting (mmHg) 122/88 Pulse Rate-Sitting (bpm) 68 Respiration Rate (breaths/min) 18 Temp-Oral (F) 97.6 Weight (lb) 256 Last Documented: On 06/17/2009 9:25AM ; [facility] Results Includes: Results discussed during [...] 05/03/2009 Last Documented On 9 9:17AM ; [facility] Single 05/03/2009 Last Documented On 9 9:17AM ; [facility] Smoking Status Unknown Medical History Includes: Medical History addressed during this encounter Description Last Updated No history of arthritis 05/03/2009 Last Documented On 9 9:17AM ; [facility] No history of cancer 05/03/2009 Last Documented On 9 9:17AM ; [facility] No history of chronic obstructive pulmon daphnie disease 05/03/2009 Last Documented On 9 9:17AM ; [facility] No history of convulsive disorder 2008 Last Documented On 9 9:17AM ; [facility] No history of diabetes mellitus 05/03/20 09 Last Documented On 9 9:17AM ; [facility] No history of hypertension 05/03/2009 Last Documented On 9 9:17AM ; [facility] No history of stroke syndrome 05/03/2009 Last Documented On 9 9:17AM ; [facility] No history of venereal disease 9 Last Documented On 9 9:17AM ; [facility] Surgery HERNIA 84 05/03/2009 Last Documented On 9 9:17AM ; [facility] Family History Includes: Family History addressed during [...] Time Diagnosis PROBLEM VISIT SEYMOUR JUNIOR PA-C [facility] CHON EMANUEL 06/17/20 09 9:09AM 11:59PM Scrotum Hematoma (Nontraumati c) Clinical Notes Includes: Clinical Notes from this encounter No Clinical Notes Recorded
--- OUTSIDE RECORDS SUMMARY | 2025-03-13 18:42 | XMS_ITS | Clinical Summary ---
Author Organization [facility] Address [address] [place] [address] Phone Care Team Providers Care Racehorse Trainer Name Role Phone Unavailable Unavailable Unavailable Reason [...] 9 9:48AM By JOESPH ROGER PA-C ; [facility] Triamcinolone Acetonide 0.5% EX CREA 10/26/2009 - 01/24/2010 Provider: JOESPH ANTON CH, PA-C Diagnosis: DERMATITIS NOS Last Documented On 9 9:48AM By JOESPH ROGER PA-C ; [facility] Medications Administered Includes: Administered Medications from this [...] 05/03/2009 Last Documented On 9 7:22PM ; [facility] Single 05/03/2009 Last Documented On 9 7:22PM ; [facility] Smoking Status Unknown Medical History Includes: Medical History addressed during this encounter Description Last Updated No history of arthritis 05/03/2009 Last Documented On 9 7:22PM ; [facility] No history of cancer 05/03/2009 Last Documented On 9 7:22PM ; [facility] No history of chronic obstructive pulmon daphnie disease 05/03/2009 Last Documented On 9 7:22PM ; [facility] No history of convulsive disorder 2008 Last Documented On 9 7:22PM ; [facility] No history of diabetes mellitus 05/03/20 09 Last Documented On 9 7:22PM ; [facility] No history of hypertension 05/03/2009 Last Documented On 9 7:22PM ; [facility] No history of stroke syndrome 05/03/2009 Last Documented On 9 7:22PM ; [facility] No history of venereal disease 9 Last Documented On 9 7:22PM ; [facility] Surgery HERNIA 84 05/03/2009 Last Documented On 9 7:22PM ; [facility] Family History Includes: Family History addressed during [...] Time Diagnosis CHART UPDATE ALEXANDRIA SERRANO D.O. [facility] 05/03/20 09 7:19PM 11:59PM Clinical Notes Includes: Clinical Notes from this encounter No Clinical Notes Recorded
--- OUTSIDE RECORDS SUMMARY | 2025-03-13 18:42 | XMS_ITS ---
Author Organization [facility] Address [address] [place] [address] Phone Care Team Providers Care Decorative Engraver Name Role Phone Unavailable Unavailable Unavailable Plan of Treatment No Plan of Treatment Recorded Assessments Includes: Assessments for all patient encounters Findings Encounter Date Normal routine history and physical NEW PATIENT VISIT with ALEXANDRIA SERRANO D.O. 10/25/2013 Last Documented On 3 5:08PM ; [facility] Obesity NEW PATIENT VISIT with ALEXANDRIA SERRANO D.O. 10/25/2013 Last Documented On 3 5:08PM ; [facility] Eczematoid dermatitis SICK VISIT with JOESPH ROGER PA-C 10/26/2009 Last Documented On 9 9:48AM ; [facility] Hematoma (nontraumatic) of the scrotum P ROBLEM VISIT with SEYMOUR JUNIOR PA-C 06/17/2009 Last Documented On 9 10:18AM ; [facility] Medical Equipment - Implanted Devices Includes: Current and historical Devices No Medical Equipment Recorded Medications Includes: Current and historical Medications Past Medications on file Medrol (Stone) 4 MG OR TABS 10/26/2009 - 11/02/2009 Provider: JOESPH ANTON CH, PA-C Diagnosis: DERMATITIS NOS Last Documented On 9 9:48AM By JOESPH ROGER PA-C ; [facility] Triamcinolone Acetonide 0.5% EX CREA 10/26/2009 - 01/24/2010 Provider: JOESPH ANTON CH, PA-C Diagnosis: DERMATITIS NOS Last Documented On 9 9:48AM By JOESPH ROGER PA-C ; [facility] Medications Administered Includes: Administered Medications in patient's chart No Administered Medications Recorded Results Includes: Results from 03/13/2024 through 03/13/2025 No Results Recorded For Specified Dates History of Present Illness History of Present Illness not supported for this document type No History of Present Illness Recorded Social History Description Last Updated Currently 10/25/2013 Last Documented On 3 5:08PM ; [facility] No consumption of alcohol 10/25/2013 Last Documented On 3 5:08PM ; [facility] No tobacco use 10/25/2013 Last Documented On 3 5:08PM ; [facility] Not using drugs 10/25/2013 Last Documented On 3 5:08PM ; [facility] Exercise frequency WORK OUT CARDIIO /PRATEEK GHT 05/03/2009 Last Documented On 9 7:22PM ; [facility] Single 05/03/2009 Last Documented On 9 7:22PM ; [facility] Smoking Status Unknown Medical History Includes: Medical History in patient's chart Description Last Updated No reported easy bleeding 10/25/2013 Last Documented On 3 5:08PM ; [facility] No reported recurrent infections 013 Last Documented On 3 5:08PM ; [facility] No history of arthritis 05/03/2009 Last Documented On 9 7:22PM ; [facility] No history of cancer 05/03/2009 Last Documented On 9 7:22PM ; [facility] No history of chronic obstructive pulmon daphnie disease 05/03/2009 Last Documented On 9 7:22PM ; [facility] No history of convulsive disorder 2008 Last Documented On 9 7:22PM ; [facility] No history of diabetes mellitus 05/03/20 Last Documented On 9 7:22PM ; [facility] No history of hypertension 05/03/2009 Last Documented On 9 7:22PM ; [facility] No history of stroke syndrome 05/03/2009 Last Documented On 9 7:22PM ; [facility] No history of venereal disease 9 Last Documented On 9 7:22PM ; [facility] Surgery HERNIA 84 05/03/2009 Last Documented On 9 7:22PM ; [facility] Family History Includes: Family History in patient's chart Description Last Updated Father 66 years old 10/25/2013 Last Documented On 3 5:08PM ; [facility] Mother 65 years old 10/25/2013 Last Documented On 3 5:08PM ; [facility] Review of Systems Review of Systems not [...]
--- OUTSIDE RECORDS SUMMARY | 2025-03-13 18:42 | XMS_ITS ---
Care Plan - [facility] Created on: March 13, 2025 MEMO LOVE : 1980 Sex: Male Author Organization [facility] Address [address] [place] [address] Phone Care Team Providers Care Sales Analyst Name Role Phone Unavailable Unavailable Unavailable
[2025-03-13 18:43] LABS: INR 1.2; Partial Thromboplastin Time 34.7 Seconds (22.3-36.8); Prothrombin Time 15.5 Seconds (11.1-14.7)
[2025-03-13] MEDS: HEPARIN SOD/D5W 100 UNITS/ML 25,000 UNITS/250 ML BAG 14 UNITS IV CONT (20:12)
[2025-03-13] MEDS: HEPARIN SODIUM 5,000 UNITS/ML VIAL 6500 UNITS IV PUSH (20:13)
--- NOTE | 2025-03-13 21:22 | PC.NURSE ---
mary carmen holguin at bedside as pt had c/o pain with deep breathing. Continue current plan of care.
--- NOTE | 2025-03-13 23:01 | PC.NURSE ---
report to [facility]. pt transferred to their stretcher. Pt in hospital gown with 2 belongings bags for his clothes/backpack/shoes. Heparin gtt infusing at time of transfer.
== END 2025-03-13 23:02 | disposition short-term general hospital (02) ==
PROVIDERS: Emergency Provider Physician Assistant; PCP Emergency Medicine
DX: I26.99 Other pulmonary embolism without acute cor pulmonale (principal); I27.20 Pulmonary hypertension, unspecified; I82.402 Acute embolism and thrombosis of unspecified deep veins of left lower extremity; K52.9 Noninfective gastroenteritis and colitis, unspecified
CPT/HCPCS: 36415; 71275; 80053; 83880; 84484; 85025; 85610; 85730; 93005; 96365; 96366; 99291; J1644; Q9967

== ENCOUNTER 2025-03-31 11:21 | Outpatient (CLI) | payer BC, SELFPAY ==
--- OUTSIDE RECORDS SUMMARY | 2025-03-31 11:24 | XMS_ITS | Clinical Summary ---
Author Organization [facility] Address [address] [place] [address] Phone Care Team Providers Care Book Or Script Editor Name Role Phone Sanford Harvey MD Primary Care Provider [phone] Allergies Active Allergy Reactions Criticality Noted Date Comments Ustekinumab Other (See Comments) 03/14/2025 Chest pain Medications budesonide (ENTOCORT EC) 3 mg Enteric Coated 24 hour capsule Take 9 mg by mouth daily. Active bismuth subsalicylate (PEPTO-BISMOL) 262 mg/15 mL suspension Take 30 mL by mouth every 6 hours as needed for Indigestion. Active diphenoxylate-atr opine 2.5 mg-0.025 mg tablet Take 1 Tablet by mouth 4 times daily as needed for Diarrhea/Loose Stools. Active guselkumab (Tremfya) 200 mg/20 mL (10 mg/mL) Solution Inject 200 mg by intravenous injection every 30 days. Active hydrocortisone (HYTONE) 2.5 % Cream Apply to affected area 2 times daily as needed for Other (See Comment). Active hyoscyamine sulfate 0.125 mg tablet Take 0.125 mg by mouth 3 times daily. Active loperamide (IMODIUM) 2 mg Tablet Take 2 mg by mouth every 4 hours as needed for Diarrhea/Loose Stools. Active traMADol (ULTRAM) 50 mg tablet Take 50 mg by mouth every 6 hours as needed for Pain. Active mesalamine 1.2 gram tablet,delayed release (LIALDA) Take 4.8 Grams by mouth daily with breakfast. Active apixaban (ELIQUIS) 5 mg tablet Take 2 Tablets (10 mg) by mouth 2 times daily for 7 days, THEN 1 Tablet (5 mg) 2 times daily for 23 days. 74 Tablet 03/16/2025 11:00 AM CDT 025 Active Active Problems Problem Noted Date Diagnosed Date Acute pulmonary embolism 03/14/2025 Acute deep vein thrombosis ( DVT) of proximal vein of left lower extremity 03/14/2025 Ulcerative pancolitis without complication 03/14 Protein-calorie malnutrition, moderate Encounters Date Type Department Care Team Description 03/27/2025 External Device Data [facility] ABSTRACTION Provider, Abstract 03/20/2025 External Device Data [facility] ABSTRACTION Provider, Abstract 03/20/2025 External Device Data [facility] ABSTRACTION Provider, Abstract 03/20/2025 External Device Data [facility] ABSTRACTION Provider, Abstract 03/14/2025 12:14 AM CDT - 03/16/2025 11:42 AM CDT Hospital Encounter [facility] [address] [place] [address] Jaquelin Villatoro MD Katyal, Anup, MD Garri, Mikael, MD Douglas, MD Francia Gray, Sriram Chavez MD Acute pulmonary embolism (CMS/HCC) Discharge Disposition: Home or Self Care 03/14/2025 Travel from Last 3 Months Family History Medical History Relation Name Comments Colon Cancer Paternal Aunt diagnosed in 6 0s Colon Cancer Paternal Grandparent paterna l grandmother, diagnosed w/colon cancer in 60s Relation Name Status Comments Father Paternal Aunt Alive Paternal Grandmother Paternal Grandparent Social History Tobacco Use Types Packs/Day Years Used Date Smoking Tobacco: Never Smokeless Tobacco: Never Tobacco Cessation:Counseling Given: Not Answered Alcohol Use Standard Drinks/Week Comments Never 0 (1 standard drink = 0.6 oz pur e alcohol) Feeling Safe Answer Date Recorded Are you in a relationship wi th someone who hurts you emotionally and/or physically? 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 Gender Identity Not on file Sexual Orientation Not on file Last Filed Vital Signs Vital Sign Reading Time Taken Comments Blood Pressure 115/73 03/16/2025 8:29 AM CDT Pulse 76 03/16/2025 5:40 AM CDT Temperature 36.5 C (97.7 F) 03/16/2025 8:29 AM CDT Respiratory Rate 13 03/16/2025 5:40 AM CDT Oxygen Saturation 97% 03/16/2025 5:40 AM CDT Inhaled Oxygen Concentration - - Weight 87.5 kg (193 lb) 03/14/2025 12:22 AM CDT Height 177.8 cm (5' 10 ) 03/14/2025 12:22 AM CDT Body Mass Index 27.69 03/14/2025 12:22 AM CDT Plan of Treatment Health Maintenance Due Date Last Done Comments Pre-Diabetes and Diabetes Screening 1980 DTAP/TDAP/TD VACCINES (1 - Tdap) 2000 HEPATITIS B VACCINES (1 of 3 - 19+ 3-dose series) 2000 INFLUENZA VACCINE (#1) 2024 HPV VACCINES Aged Out No longer eligi ble based on patient's age to complete this topic Procedures Procedure Name Priority Date/Time Associated Diagnosis Comments BASIC METABOLIC PANEL Routine 03/16/2025 3:42 AM CDT CBC WITHOUT DIFFERENTIAL Routine 03/16/2025 3:42 AM CDT MAGNESIUM LEVEL Routine 03/16/2025 3:42 AM CDT BASIC METABOLIC PANEL Routine 03/15/2025 5:14 AM CDT CBC WITHOUT DIFFERENTIAL Routine 03/15/2025 5:14 AM CDT MAGNESIUM LEVEL Routine 03/15/2025 5:14 AM CDT ECHOCARDIOGRAM W/ CONTRAST AGENT Stat 03/14/2025 10:42 AM CDT BETA 2 GLYCOPROTEIN I ANTIBODIES Routine 03/14/2025 8:59 AM CDT LACTIC ACID Stat 03/14/2025 8:59 AM CDT UNFRACTIONATED HEPARIN ACTIVITY Timed Study 03/14/2025 7:20 AM CDT COMPREHENSIVE METABOLIC PANEL Routine 03/14/2025 4:35 AM CDT CBC WITHOUT DIFFERENTIAL Routine 03/14/2025 4:35 AM CDT EKG 12-LEAD Routine 03/14/2025 3:33 AM CDT UNFRACTIONATED HEPARIN ACTIVITY Routine 03/14/2025 12:42 AM CDT PTT Routine 03/14/2025 12:42 AM CDT CBC WITHOUT DIFFERENTIAL Routine 03/14/2025 12:42 AM CDT from Last 3 Months Results * (ABNORMAL) CBC WITHOUT DIFFERENTIAL (03/16/2025 3:42 AM CDT) Only the most recent of4 resultswithin the time period is included. WBC 6.0 4.0 - 9.8 K/uL 03/16/2025 5:34 AM CDT [facility] RBC 4.33(L) 4.50 - 5.40 M/uL 03/16/2025 5:34 AM CDT [facility] HEMOGLOBIN 12.3(L) 13.6 - 16.5 g/dL 03/16/2025 5:34 AM CDT [facility] HEMATOCRIT 38.6(L) 40.0 - 48.0 % 03/16/2025 5:34 AM CDT [facility] MCV 89.1 82.0 - 99.0 fL 03/16/2025 5:34 AM CDT [facility] MCH 28.4 27.2 - 32.6 pg 03/16/2025 5:34 AM CDT [facility] - [facility] MCHC 31.9 31.5 - 35.5 g/dL 03/16/2025 5:34 AM CDT [facility] - [facility] PLATELETS 197 140 - 350 K/uL 03/16/2025 5:34 AM CDT [facility] - [facility] MPV 9.6 9.3 - 12.4 fL 03/16/2025 5:34 AM CDT [facility] - [facility] RDW 12.9 11.5 - 14.5 % 03/16/2025 5:34 AM CDT [facility] - [facility] RDW-STDEV 42.5 37.1 - 48.7 fL 03/16/2025 5:34 AM CDT [facility] - [facility] Blood Venipuncture / Unknown 03/16/2025 3:42 AM CDT 03/16/2025 5:04 AM CDT Azam Rosa MD HEMATOLOGY ORDERABLES Final Resu lt Performing Organization Address City/[facility]/ZIP Co de Phone Number [facility] CLIA# [id number] [address] [place] [id number] * MAGNESIUM LEVEL (03/16/2025 3:42 AM CDT) Only the most recent of2 resultswithin the time period is included. MAGNESIUM 2.3 1.6 - 2.6 mg/dL 03/16/2025 5:57 AM CDT [facility] Blood Venipuncture / Unknown 03/16/2025 3:42 AM CDT 03/16/2025 5:04 AM CDT Azam Rosa MD CHEMISTRY ORDERABLES Final Resul t Performing Organization Address City/[facility]/ZIP Co de Phone Number [facility] CLIA# [id number] [address] [place] [address] * (ABNORMAL) BASIC METABOLIC PANEL (03/16/2025 3:42 AM CDT) Only the most recent of2 resultswithin the time period is included. SODIUM 140 136 - 145 mmol/L 03/16/2025 5:57 AM T [facility] POTASSIUM 3.9 3.5 - 5.0 mmol/L 03/16/2025 5:57 AM T [facility] [employer] [facility] CHLORIDE 105 98 - 107 mmol/L 03/16/2025 5:57 AM T [facility] CO2 25 22 - 29 mmol/L 03/16/2025 5:57 AM T [facility] [employer] [facility] CALCIUM 8.4(L) 8.6 - 10.2 mg/dL 03/16/2025 5:57 AM T [facility] BUN 9 6 - 20 mg/dL 03/16/2025 5:57 AM T [facility] [employer] [facility] CREATININE 0.98 0.67 - 1.17 mg/dL 03/16/2025 5:57 AM [facility] [employer] [facility] GLUCOSE 98 74 - 99 mg/dL 03/16/2025 5:57 AM T [facility] [employer] [facility] GFR >60 >=60 mL/min/1.7 3 sq meter 03/16/2025 5:57 AM [facility] [employer] [facility] Comment:eGFR calculated with 2020 CKD-EPI equation. Vegetarian diet, extremely high or low muscle mass, and may affect results. Cystatin C with Glomerular Filtration Rate is a suitable alternative for these patients. ANION GAP 10 8 - 16 mmol/L 03/16/2025 5:57 AM T [facility] [employer] [facility] Blood Venipuncture / Unknown 03/16/2025 3:42 AM CDT 03/16/2025 5:04 AM CDT us Azam Moe JULIEN CHEMISTRY ORDERABLES Final Resul t [facility] [employer] [facility] CLIA# [id number] [address] [facility] [place] [address] * ECHOCARDIOGRAM W/ CONTRAST AGENT (03/14/2025 10:42 AM CDT) EJECTION FRACTION 55 INTERFACE SYSTEM 03/14/2025 10:5 5 AM CDT Narrative INTERFACE SYSTEM - 03/14/2025 11:[place] [address] [employer] monett/stlouisConceptua Math Transthoracic Echocardiogram Patient: Mercy Gibbs Study ID: [id number] Gender: M : 1980 Age: 44 Race: ALLY Height 177.8cm Study Date: 03/14/2025 Weight: 87.5kg Access. #: [id number] BP: *Referring Physician:Azam Bernstein *Ordering Physician:Azam Bernstein service girl: Nurse: Indications: PE. STUDY CONCLUSIONS: SUMMARY: - Left ventricle: The cavity size was normal. Wall thickness was normal. Global systolic function is normal. For Epic reporting: the left ventricular ejection fraction is 55% . Left ventricular diastolic function parameters are normal. - Left atrium: The atrium is normal in size. - Right ventricle: The cavity size is dilated. Systolic function is normal. - Pulmonary arteries: Systolic pressure was at the upper limits of normal. Cardiac Anatomy: LEFT VENTRICLE: The cavity size was normal. Wall thickness was normal. Global systolic function is normal. For Epic reporting: the left ventricular ejection fraction is 55% . Wall motion is normal; there are no regional wall motion abnormalities. Global longitudinal strain was -18.4% (GLS is abnormal if greater than -16, i.e. -15). Left ventricular diastolic function parameters are normal. AORTIC VALVE: Structurally normal valve. Trileaflet. There was no stenosis. No significant regurgitation. The mean systolic gradient is 2mm Hg. The peak systolic gradient is 4mm Hg. The LVOT to aortic valve VTI ratio is 0.84. The valve area is 2.6cm^2. The ratio of LVOT to aortic valve peak velocity is 0.99. AORTA: Aortic root: The root is normal-sized. MITRAL VALVE: Structurally normal valve. No significant regurgitation. The mean diastolic gradient is 1mm Hg. The peak diastolic gradient is 1mm Hg. LEFT ATRIUM: The atrium is normal in size. RIGHT VENTRICLE: The cavity size is dilated. Systolic function is normal. PULMONIC VALVE: Structurally normal valve. Mild regurgitation. TRICUSPID VALVE: Structurally normal valve. Mild regurgitation. PULMONARY ARTERY: Systolic pressure was at the upper limits of normal. RIGHT ATRIUM: The atrium was normal in size. SYSTEMIC VEINS: Inferior vena cava: The IVC is normal-sized. PERICARDIUM: There is no pericardial effusion. Measurements Left ventricle Value Ref GLS, 2D -18.4 % --------- IVS, ED, LAX (N) 1.0 cm 0.6 - 1.0 MIGUE, LAX (N) 4.3 cm 4.2 - 5.8 MIGUE/bsa, LAX (L) 2.1 cm/m^2 2.2 - 3.0 MIGUE, LAX chord (N) 5.8 cm 4.2 - 5.8 ESD, LAX chord (H) 4.4 cm 2.5 - 4.0 MIGUE/bsa, LAX chord (N) 2.8 cm/m^2 2.2 - 3.0 ESD/bsa, LAX chord (N) 2.1 cm/m^2 1.3 - 2.1 FS, LAX chord (L) 24 % 25 - 43 IVS, ED (N) 0.8 cm 0.6 - 1.0 PW, ED (N) 0.9 cm 0.6 - 1.0 EDV, 2-p (H) 171 ml 62 - 150 SV, 2-p 72 ml --------- SV/bsa, 2-p 34.8 ml/m^2 --------- E', lat perico, TDI (N) 18.2 cm/sec >=10.0 E/e', lat perico, TDI (N) 4 <=13 E', med perico, TDI (N) 8.7 cm/sec >=7.0 E/e', med perico, TDI 8 --------- E', avg, TDI 13.5 cm/sec --------- E/e', avg, TDI (N) 5 <=14 LVOT Value Ref Diam, S 2.0 cm --------- Area 3.1 cm^2 --------- Peak deedee, S 0.87 m/sec --------- VTI, S 16.3 cm --------- Right ventricle Value Ref MIGUE minor ax, A4C base (H) 4.5 cm 2.5 - 4.1 MIGUE minor ax, A4C mid (N) 3.5 cm 1.9 - 3.5 MIGUE major ax, A4C (N) 7.5 cm 5.9 - 8.3 TAPSE, MM (N) 2.5 cm >=1.7 Pressure, S 39 mm Hg --------- S' lateral (N) 13.7 cm/sec >=9.5 Left atrium Value Ref AP dim, ES (N) 3.9 cm 3.0 - 4.0 AP dim index, ES (N) 1.9 cm/m^2 1.5 - 2.3 SI dim, A4C 5.7 cm --------- Area ES, A4C (N) 18 cm^2 <=20 Area/bsa ES, A4C 8.79 cm^2/m^2 --------- SI dim, A2C 5.9 cm --------- SI dim, shorter 5.7 cm --------- Vol, ES, 1-p A2C (N) 52 ml 18 - 58 Vol/bsa, ES, 1-p A2C (N) 25 ml/m^2 11 - 43 Vol, ES, 2-p 49 ml --------- Vol/bsa, ES, 2-p (N) 24 ml/m^2 16 - 34 LA/Ao root ratio 1.11 --------- Right atrium Value Ref SI dim, ES, A4C (N) 5.1 cm 3.4 - 5.3 SI dim/bsa, ES, A4C (N) 2.5 cm/m^2 1.8 - 3.0 Area, ES, A4C (N) 15 cm^2 10 - 18 Vol, ES, 1-p A4C 35 ml --------- Vol/bsa, ES, 1-p A4C (N) 17 ml/m^2 11 - 39 Aortic valve Value Ref Peak v, S 0.9 m/sec --------- Mean v, S 0.69 m/sec --------- VTI, S 19.4 cm --------- Mean grad, S 2 mm Hg --------- Peak grad, S 4 mm Hg --------- LVOT/AV, VTI ratio 0.84 --------- ELADIO, VTI 2.6 cm^2 --------- ELADIO/bsa, VTI 1.28 cm^2/m^2 --------- LVOT/AV, Vpeak ratio 0.99 --------- ELADIO, Vmax 2.7 cm^2 --------- ELADIO/bsa, Vmax 1.32 cm^2/m^2 --------- Mitral valve Value Ref Mean v, D 0.41 m/sec --------- Peak E 0.68 m/sec --------- Peak A 0.54 m/sec --------- Decel time 152 ms --------- PHT 45 ms --------- Mean grad, D 1 mm Hg --------- Peak grad, D 1 mm Hg --------- Peak E/A ratio 1.3 --------- A-VTI 19.0 cm --------- MVA, PHT 4.9 cm^2 --------- MVA/bsa, PHT 2.37 cm^2/m^2 --------- Pulmonic valve Value Ref Peak v, S 0.69 m/sec --------- Accel time 63 ms --------- Peak grad, S 2 mm Hg --------- Tricuspid valve Value Ref TR peak v (N) 2.7 m/sec <=2.8 Peak RV-RA grad, S 29 mm Hg --------- Aortic root Value Ref Root diam, 3.5 cm --------- Ascending aorta Value Ref AAo AP diam, S 2.9 cm --------- AAo AP diam/bsa, S 1.4 cm/m^2 --------- Pulmonary artery Value Ref Pressure, S 35 mm Hg --------- Systemic veins Value Ref Estimated RA pressure 10 mm Hg --------- Legend: (L) and (H) jayden values outside specified reference range. (N) nguyen values inside specified reference range. Procedure data: Procedure information: A transthoracic echocardiogram was performed. Scanning was performed from the parasternal, apical, and subcostal acoustic windows. Transthoracic echocardiogram. Complete 2D, complete spectral Doppler, and color Doppler. Birthdate: Patient birthdate: 1980. Age: Patient is 44year(s) old. Sex: gender: male. Height: 177.8cm. 70in. Weight: 87.5kg. 193lb. Body mass index: 27.7kg/m^2. Body surface area: 2.06m^2. Study date: Study date: 03/14/2025. Study time: 10:55 AM. Prepared and Electronically Authenticated Tejal Barcenas MD [id number] Procedure Note Tejal Barcenas MD - 03/14/[address] [address] [email or web address] Transthoracic Echocardiogram Patient: Mercy Gibbs Study ID: [id number] Gender: M :1980 Age: 44 Race: CAU Height 177.8cm Study Date:03/14/2025 Weight: 87.5kg Access. #:[id number] BP: *Referring Physician:* Azam Rosa *Ordering Physician:Azam Bernstein service girl: Nurse: Indications: PE. STUDY CONCLUSIONS: SUMMARY: - Left ventricle: The cavity size was normal. Wall thickness was normal. Global systolic function is normal. For Epic reporting: the leftventricular ejection fraction is 55% . Left ventricular diastolic functionparameters are normal. - Left atrium: The atrium is normal in size. - Right ventricle: The cavity size is dilated. Systolic function isnormal. - Pulmonary arteries: Systolic pressure was at the upper limits ofnormal. Cardiac Anatomy: LEFT VENTRICLE: The cavity size was normal. Wall thickness was normal.Global systolic function is normal. For Epic reporting: the left ventricularejection fraction is 55% . Wall motion is normal; there are no regional wallmotion abnormalities. Global longitudinal strain was -18.4% (GLS is abnormal if greater than -16, i.e. -15). Left ventricular diastolic functionparameters are normal. AORTIC VALVE: Structurally normal valve. Trileaflet. There was nostenosis. No significant regurgitation. The mean systolic gradient is 2mm Hg.The peak systolic gradient is 4mm Hg. The LVOT to aortic valve VTI ratio is0.84. The valve area is 2.6cm^2. The ratio of LVOT to aortic valve peak velocityis 0.99. AORTA: Aortic root: The root is normal-sized. MITRAL VALVE: Structurally normal valve. No significantregurgitation. The mean diastolic gradient is 1mm Hg. The peak diastolic gradient is 1mmHg. LEFT ATRIUM: The atrium is normal in size. RIGHT VENTRICLE: The cavity size is dilated. Systolic function isnormal. PULMONIC VALVE: Structurally normal valve. Mild regurgitation. TRICUSPID VALVE: Structurally normal valve. Mild regurgitation. PULMONARY ARTERY: Systolic pressure was at the upper limits of normal. RIGHT ATRIUM: The atrium was normal in size. SYSTEMIC VEINS: Inferior vena cava: The IVC is normal-sized. PERICARDIUM: There is no pericardial effusion. Measurements Left ventricle Value Ref GLS, 2D -18.4 % --------- IVS, ED, LAX (N) 1.0 cm 0.6 - 1.0 MIGUE, LAX (N) 4.3 cm 4.2 - 5.8 MIGUE/bsa, LAX (L) 2.1 cm/m^2 2.2 - 3.0 MIGUE, LAX chord (N) 5.8 cm 4.2 - 5.8 ESD, LAX chord (H) 4.4 cm 2.5 - 4.0 MIGUE/bsa, LAX chord (N) 2.8 cm/m^2 2.2 - 3.0 ESD/bsa, LAX chord (N) 2.1 cm/m^2 1.3 - 2.1 FS, LAX chord (L) 24 % 25 - 43 IVS, ED (N) 0.8 cm 0.6 - 1.0 PW, ED (N) 0.9 cm 0.6 - 1.0 EDV, 2-p (H) 171 ml 62 - 150 SV, 2-p 72 ml --------- SV/bsa, 2-p 34.8 ml/m^2 --------- E', lat perico, TDI (N) 18.2 cm/sec >=10.0 E/e', lat perico, TDI (N) 4 <=13 E', med perico, TDI (N) 8.7 cm/sec >=7.0 E/e', med perico, TDI 8 --------- E', avg, TDI 13.5 cm/sec --------- E/e', avg, TDI (N) 5 <=14 LVOT Value Ref Diam, S 2.0 cm --------- Area 3.1 cm^2 --------- Peak deedee, S 0.87 m/sec --------- VTI, S 16.3 cm --------- Right ventricle Value Ref MIGUE minor ax, A4C base (H) 4.5 cm 2.5 - 4.1 MIGUE minor ax, A4C mid (N) 3.5 cm 1.9 - 3.5 MIGUE major ax, A4C (N) 7.5 cm 5.9 - 8.3 TAPSE, MM (N) 2.5 cm >=1.7 Pressure, S 39 mm Hg --------- S' lateral (N) 13.7 cm/sec >=9.5 Left atrium Value Ref AP dim, ES (N) 3.9 cm 3.0 - 4.0 AP dim index, ES (N) 1.9 cm/m^2 1.5 - 2.3 SI dim, A4C 5.7 cm --------- Area ES, A4C (N) 18 cm^2 <=20 Area/bsa ES, A4C 8.79 cm^2/m^2 --------- SI dim, A2C 5.9 cm --------- SI dim, shorter 5.7 cm --------- Vol, ES, 1-p A2C (N) 52 ml 18 - 58 Vol/bsa, ES, 1-p A2C (N) 25 ml/m^2 11 - 43 Vol, ES, 2-p 49 ml --------- Vol/bsa, ES, 2-p (N) 24 ml/m^2 16 - 34 LA/Ao root ratio 1.11 --------- Right atrium Value Ref SI dim, ES, A4C (N) 5.1 cm 3.4 - 5.3 SI dim/bsa, ES, A4C (N) 2.5 cm/m^2 1.8 - 3.0 Area, ES, A4C (N) 15 cm^2 10 - 18 Vol, ES, 1-p A4C 35 ml --------- Vol/bsa, ES, 1-p A4C (N) 17 ml/m^2 11 - 39 Aortic valve Value Ref Peak v, S 0.9 m/sec --------- Mean v, S 0.69 m/sec --------- VTI, S 19.4 cm --------- Mean grad, S 2 mm Hg --------- Peak grad, S 4 mm Hg --------- LVOT/AV, VTI ratio 0.84 --------- ELADIO, VTI 2.6 cm^2 --------- ELADIO/bsa, VTI 1.28 cm^2/m^2 --------- LVOT/AV, Vpeak ratio 0.99 --------- ELADIO, Vmax 2.7 cm^2 --------- ELADIO/bsa, Vmax 1.32 cm^2/m^2 --------- Mitral valve Value Ref Mean v, D 0.41 m/sec --------- Peak E 0.68 m/sec --------- Peak A 0.54 m/sec --------- Decel time 152 ms --------- PHT 45 ms --------- Mean grad, D 1 mm Hg --------- Peak grad, D 1 mm Hg --------- Peak E/A ratio 1.3 --------- A-VTI 19.0 cm --------- MVA, PHT 4.9 cm^2 --------- MVA/bsa, PHT 2.37 cm^2/m^2 --------- Pulmonic valve Value Ref Peak v, S 0.69 m/sec --------- Accel time 63 ms --------- Peak grad, S 2 mm Hg --------- Tricuspid valve Value Ref TR peak v (N) 2.7 m/sec <=2.8 Peak RV-RA grad, S 29 mm Hg --------- Aortic root Value Ref Root diam, 3.5 cm --------- Ascending aorta Value Ref AAo AP diam, S 2.9 cm --------- AAo AP diam/bsa, S 1.4 cm/m^2 --------- Pulmonary artery Value Ref Pressure, S 35 mm Hg --------- Systemic veins Value Ref Estimated RA pressure 10 mm Hg --------- Legend: (L) and (H) jayden values outside specified reference range. (N) nguyen values inside specified reference range. Procedure data: Procedure information: A transthoracic echocardiogram was performed.Scanning was performed from the parasternal, apical, and subcostal acousticwindows. Transthoracic echocardiogram. Complete 2D, complete spectralDoppler, and color Doppler. Birthdate: Patient birthdate: 1980. Age:Patient is 44year(s) old. Sex: gender: male. Height: 177.8cm. 70in.Weight: 87.5kg. 193lb. Body mass index: 27.7kg/m^2. Body surface area:2.06m^2. Study date: Study date: 03/14/2025. Study time: 10:55 AM. Preparedand Electronically Authenticated Tejal Barcenas MD [id number] Azam Rosa MD US ORDERABLES Final Result Performing Organization Address City/[facility] Co de Phone Number INTERFACE SYSTEM Refer to clinic/hospital department * LACTIC ACID (03/14/2025 8:59 AM CDT) Pathologist [facility] [place] LACTIC ACID 0.6 <=2.0 mmol/L 03/14/2025 10:00 AM CDT [facility] Blood Venipuncture / Unknown 03/14/2025 8:59 AM CDT 03/14/2025 9:20 AM CDT Azam Rosa MD CHEMISTRY ORDERABLES Final Resul t Performing Organization Address [facility] de Phone Number [facility] [employer] [facility]# [id number] [address] [place] [address] * BETA 2 GLYCOPROTEIN I ANTIBODIES (03/14/2025 8:59 AM CDT) B2 GLYCOPROTEIN I IGG <2.0 <20.0 U/mL 03/16/2025 8:56 PM CDT [employer] [facility] Comment: Value Interpretation ----- < 20.0 Antibody not detected > or = 20.0 Antibody detected B2 GLYCOPROTEIN I IGM 4.8 <20.0 U/mL 03/16/2025 8:56 PM CDT [employer] [facility] Comment: Value Interpretation ----- < 20.0 Antibody not detected > or = 20.0 Antibody detected B2 GLYCOPROTEIN I IGA <2.0 <20.0 U/mL 03/16/2025 8:56 PM CDT [facility] Comment: Value Interpretation ----- < 20.0 Antibody not detected > or = 20.0 Antibody detected The antiphospholipid antibody syndrome (APS) is a clinical-pathologic correlation that includes a clinical event (e.g. arterial or venous thrombosis, morbidity) and persistent positive antiphospholipid antibodies (IgM, IgG Cardiolipin or b2GPI antibodies greater than the 99th percentile; or a lupus anticoagulant). International consensus guidelines for APS suggest waiting at least 12 weeks before retesting to confirm antibody persistence. The Systemic Lupus International [facility] immunological classification criteria for systemic lupus erythematosus (SLE) include testing for isotype IgA, which has yet to be incorporated into APS criteria. Low level antiphospholipid antibodies may sometimes be detected in the setting of infection, drug therapy or aging. For additional information, please refer to http://education.MySupportAssistant/faq/VDU640 (This link is being provided for informational/ educational purposes only.) Blood Venipuncture / Unknown 03/14/2025 8:59 AM CDT 03/14/2025 9:19 AM CDT Narrative [facility] - 03/16/2025 8:56 PM CDT Performing Organization Information: Site ID: [id number] Name: [employer] Address: [address] [place] [address] [place] [address] Director: Heron Tmoas M.D.,PhD us Azam Moe JULIEN CHEMISTRY ORDERABLES Final Resul t [facility] [phone] * UNFRACTIONATED HEPARIN MONITORING (03/14/2025 7:20 AM CDT) Only the most recent of2 resultswithin the time period is included. ANTI-XA UNFRAC HEP <0.10 See Interpreta tion. IU/mL 03/14/2025 11:00 AM CDT [facility] Blood Venipuncture / Unknown 03/14/2025 7:20 AM CDT 03/14/2025 10:33 AM CDT [facility] LABORATORY SERVICES - [facility] - 03/14/2025 11:00 AM CDT Unfractionated Heparin Therapeutic Range: 0.30-0.70 IU/ml Refer to pharmacy adult heparin protocol for further recommendation. The reference range for this test is specific to the anticoagulant and is not appropriate for monitoring patients on a DOAC protocol. Jaquelin Villatoro MD HEMATOLOGY ORDERABLES Final Result [facility] [id number] [address] [facility] [place] [address] * (ABNORMAL) COMPREHENSIVE METABOLIC PANEL (03/14/2025 4:35 AM CDT) SODIUM 139 136 - 145 mmol/L 03/14/2025 5:42 AM [facility] LABORATORY SERVICES [facility] POTASSIUM 3.7 3.5 - 5.0 mmol/L 03/14/2025 5:42 AM [facility] LABORATORY [facility] CHLORIDE 106 98 - 107 mmol/L 03/14/2025 5:42 AM [facility] LABORATORY [facility] CO2 25 22 - 29 mmol/L 03/14/2025 5:42 AM [facility] LABORATORY [facility] CALCIUM 8.4(L) 8.6 - 10.2 mg/dL 03/14/2025 5:42 AM [facility] LABORATORY [facility] BUN 10 6 - 20 mg/dL 03/14/2025 5:42 AM [facility] LABORATORY [facility] CREATININE 1.02 0.67 - 1.17 mg/dL 03/14/2025 5:42 AM [facility] LABORATORY SERVICES [facility] GLUCOSE 113(H) 74 - 99 mg/dL 03/14/2025 5:42 AM [facility] LABORATORY [facility] TOTAL PROTEIN 6.1(L) 6.7 - 8.6 g/dL 03/14/2025 5:42 AM [facility] LABORATORY [facility] ALBUMIN 3.2(L) 3.5 - 5.2 g/dL 03/14/2025 5:42 AM T [facility] LABORATORY [facility] BILIRUBIN TOTAL 0.2(L) 0.3 - 1.2 mg/dL 03/14/2025 5:42 AM T [facility] ALKALINE PHOSPHATASE 83 40 - 129 U/L 03/14/2025 5:42 AM T [facility] AST 22 <41 U/L 03/14/2025 5:42 AM [facility] ALT 26 <42 U/L 03/14/2025 5:42 AM [facility] GFR >60 >=60 mL/min/1.7 3 sq meter 03/14/2025 5:42 AM [facility] Comment:eGFR calculated with 2020 CKD-EPI equation. Vegetarian diet, extremely high or low muscle mass, and may affect results. Cystatin C with Glomerular Filtration Rate is a suitable alternative for these patients. ANION GAP 8 8 - 16 mmol/L 03/14/2025 5:42 AM T [facility] Blood Venipuncture / Unknown 03/14/2025 4:35 AM CDT 03/14/2025 4:55 AM CDT [facility] - 03/14/2025 5:42 AM CDT Samples containing indocyanine green cause interferences on Total and/or Direct Bilirubin and must not be measured. Mena Tony MD CHEMISTRY ORDERABLES Final Res ult [facility] CLIA# [id number] [address] [place] [id number] * EKG 12-LEAD (03/14/2025 3:33 AM CDT) 03/14/2025 3:33 AM CDT [employer] - 03/14/2025 8:22 AM T [facility] [address] [place] [address] Test Date: 2025-03-14 Pat Name: MERCY GIBBS Department: 0 Room: [facility] 1 Gender: Male Distribution Dispatcher: : 1980 Requested By: JAQUELIN VILLATORO Order Number: [id number] Reading : Tejal Barcenas Measurements Intervals [place] Rate: 79 P: 53 MN: 142 QRS: 0 QRSD: 93 T: 23 QT: 373 QTc: 428 Interpretive Statements SINUS RHYTHM Electronically Signed On 03-14-2025 8:22:42 CDT by Tejal Barcenas Procedure Note Tejal Barcenas MD - 03/14/2025 [facility] [address] [place] [address] Test Date: 2025-03-14 Pat Name: MERCY HERNANDEZLAURA Department: 0 Room: [facility] 1 Gender: Male Distribution Dispatcher: : 1980 Requested By: JAQUELIN VILLATORO Order Number: [id number] Reading : Tejal Barcenas Measurements Intervals [place] Rate: 79 P: 53 MN: 142 QRS: 0 QRSD: 93 T: 23 QT: 373 QTc: 428 Interpretive Statements SINUS RHYTHM Electronically Signed On 03-14-2025 8:22:42 CDT by Tejal Barcenas us Jaquelin Villatoro MD ECG ORDERABLES Final Result Performing Organization Address City/State/[facility] Co de Phone Number INTERFACE SYSTEM Refer to clinic/hospital department * (ABNORMAL) PTT (03/14/2025 12:42 AM CDT) PTT 41.3(H) 24.4 - 36.4 seconds 03/14/2025 1:35 AM CDT [facility] Comment: PTT Therapeutic Range: Heparin Level PTT (seconds) <0.10 units/mL <55.8 0.10 - 0.30 units/mL 55.8 - 74.3 0.30 - 0.70 units/mL* 74.3 - 111.2* 0.70 - 1.00 units/mL 111.2 - 138.9 *corresponds to therapeutic range for unfractionated heparin Blood Venipuncture / Unknown 03/14/2025 12:42 AM CDT 03/14/2025 12:47 AM CDT Mena Tony MD HEMATOLOGY ORDERABLES Final Re sult [facility]# [id number] [address] [place] [address] from Last [address] [facility] BLUE ACCESS CHOICE RX [employer] Advance Directives For more information, please contact: [phone] * Full Code (Latest Code Status on File) Date Activated Date Inactivated Comments 03/14/2025 8:12 AM 03/16/2025 1:42 PM * Default Full Code - Needs Discussion Date Activated Date Inactivated Comments 03/14/2025 2:30 AM 03/14/2025 8:11 AM Care Teams Book Or Script Editor Relationship Specialty Start Date End Date Sanford Harvey MD [address] [place] [id number] PCP - General Family Practice 03/14/25
--- OUTSIDE RECORDS SUMMARY | 2025-03-31 11:24 | XMS_ITS | Continuity of Care Document ---
Author Organization [facility] Address [address] [place] [address] Phone Care Team Providers Care Airport Control Operator Name Role Phone Sanford Harvey MD Unavailable Unavailable Allergies, Adverse Reactions, Alerts Substance Reaction Status Criticality No Known Allergies Active No Inform ation Medications Medication Instructions Dosage Effective Dates (start - stop) Status Comments Eliquis 5 mg tablet take 1 tablet by ora l route 2 times every day 5 MG - Active mesalamine 1.2 gram tablet,delayed release take 4 tablet by oral route every day with a meal 4.8 G - Active Tremfya 200 mg/2 mL subcutaneous syringe inject 2 milliliter by subcutaneous route every 4 weeks 200 MG - Active Protonix 40 mg tablet,delayed release take 1 tablet by oral route every day 40 MG - Active Procedures Procedure Date OFFICE/OUTPATIENT VISIT, EST OFFICE/OUTPATIENT VISIT, EST OFFICE/OUTPATIENT VISIT, EST PREV VISIT, NEW, AGE 40-64 OFFICE/OUTPATIENT VISIT, NEW PREV VISIT, NEW, AGE 18-39 Advance Directives Directive Yes / No Effective Date File Name No Information Encounters Encounter Description Practice Location Reason(s) For Visit Diagnoses Date Provider Providers Copied on Encounter OFFICE/OUTPA TIENT VISIT, EST [facility], [address] [place], [id number], [place] tel:[phone] [facility] Medicine UC (chief complaint) PE (chief complaint) Other pulmonary embolism with acute cor pulmonaleDVT of left legAbnormal weight lossOther ulcerative colitis without complications Apr-3 5 Wes Christina. [address], [place], [place], [address] , [place]. tel:[phone] Referring Provider: [address], [place], [place], [address]. tel:[phone] OFFICE/OUTPA TIENT VISIT, [facility], [address], [place], [place], [address], [place] tel:[phone] [facility] GERD1 (chief complaint) colitis1 (chief complaint) HLP (chief complaint) fatty liver1 (chief complaint) Fatty liverEsophagitisAbn ormal level of alkaline phosphataseAbnormal weight lossOther ulcerative colitis without complications March- 4 Wes Toussaint [address], [place], [place], [address] , [place]. tel:[phone] Referring Provider: [address], [place], [place], [address]. tel:[phone] OFFICE/OUTPA TIENT VISIT, [facility], [address], [place], [place], [address], [place] tel:[phone] [facility] BM (chief complaint) LFT (chief complaint) HLP (chief complaint) GERD w/o esophagitisChange in bowel habitMixed hyperlipidemiaLiver diseaseAbnormal level of alkaline phosphatase Jan-0 4 Wes Toussaint [address], [place], [place], [address] , [place]. tel:[phone] Referring Provider: [address], [place], [place], [address]. tel:[phone] PREV VISIT, NEW, AGE 40-64 [facility], [address], [place], [place], [address], [place] tel:[phone] [facility] physical (chief complaint) Encounter for general adult medical exam w abnormal findingsGERD w/o esophagitisChange in bowel habitPain in right knee 4 Wes Christina. [address], [place], [place], [address] , [place]. tel:[phone] Referring Provider: [address], [place], [place], [address]. tel:[phone] PREV VISIT, NEW, AGE 18-39 [facility], [address], [place], [place], [address], [place] tel:[phone] [facility] Physical (chief complaint) Encntr for general adult medical exam w/o abnormal findings 8 Wes Christina. [address], [place], [place], [address] , [place]. tel:[phone] Referring Provider: [address], [place], [place], [address]. tel:[phone] Family History Family Member Type Diagnosis Age At Onset Sister Problem (finding) Alive and well Paternal grandmother Problem (finding) colon CA (Cause Of ) 65 Father Problem (finding) Alive and well Maternal aunt Problem (finding) colon CA 60 Mother Problem (finding) Alive and well Payers Payer name Insurance type Covered constitution party ID Authoriza tisully(s) [facility] CI [id number] Social History Type Description Quantity Date Captured Comments Alcohol Use Details No Caffeine Use Details Unknown Tobacco Use Status Current non-smoker Smoking Status Never smoker Sex Male Vital Signs Date / Time: Height Weight BMI Pulse Rate Blood Pressure Temperature Respiratory Rate Body Surface Area Head Circumference BMI percentile Pulse Ox Inhaled Ox 2:33 PM 70.00 in 196.80 lbs 28.2 4 kg/m eter (2) 76 /min 100/68 mm[Hg] 97.9 F 16 /min 98 21 Chief Complaint And Reason For Visit From encounter dated '03/21/2025 14:32'. UC (chief complaint). Description: Pt has UC which is poorly controlled .Pt is on mesalamine and Tremfya but he still has daily diarrhea with occasional blood with large amount of weight loss . PE (chief complaint). Description: Pt was admitted to hospital about 8 days ago due to acute left lower leg swelling and he was found to have extensive left leg DVT with bilateral PE with right heartstrain [facility] and he is on eliquis now. Pt currently denies any sob or chest pain his left leg swelling resolved. He denies any pain Plan Of Treatment Date Type Action Status Goal Special diet education compl eted Referral Ordered: DOPPLER ECHO EXAM, HEART ordered Referral Ordered: US EXAM, ABDOM, COMPLETE ordered Referral Ordered: COLONOSCOPY AND BIOPSY ordered Referral Ordered: Primo Foster -[facility] : Surgery (related to Encntr for general adult medical exam w/o abnormal findings) ordered Referral Referred To: Primo Foster [facility] [address] [place], [place] [id number] Ordered: Referrals: [facility]opathic [facility] Osteopathic Physicians : Surgery. Primo Foster. Evaluate and treat ordered Appointment Lukasz Gibbs BOOKED History Of Present Illness Encounter Date Complaint History Of Prese nt Illness UC Pt has UC which is poorly controlled .Pt is on mesalamine and Tremfya but he still has daily diarrhea with occasional blood with large amount of weight loss . PE Pt was admitted to hospital about 8 days ago due to acute left lower leg swelling and he was found to have extensive left leg DVT with bilateral PE with right heart strain Pt was transferred to [facility] and he is on eliquis now. Pt currently denies any sob or chest pain his left leg swelling resolved. He denies any pain GERD pt has GERD. EGD showed reflux esophagitis [...] 36.0-36.9, adult Assessments Type Assessment Date assessment Other pulmonary embolism with ac brian cor pulmonale assessment DVT of left leg assessment Abnormal weight loss assessment Other ulcerative colitis without complications Mental Status Date Cognitive Assessment Orientation - Hoxie ed to time, place, person, situation.
[2025-04-05 18:03] LABS: Calprotectin, Stool 1120 mcg/g
== END 2025-03-31 11:22 | disposition home or self-care (01) ==
LOC: ANHLAB 11:23
PROVIDERS: PCP Emergency Medicine; Referring Provider Internal Medicine Gastroenterology; Visit Provider Nurse Practitioner
DX: K51.00 Ulcerative (chronic) pancolitis without complications (principal)
CPT/HCPCS: 83993; 87493

== ENCOUNTER 2025-08-21 11:52 | Outpatient (CLI) | payer BC, SELFPAY ==
--- NOTE | ~2025-08-21 | CT_ITS ---
CTA CHEST CLINICAL HISTORY: other pul embo w/ acute cor pulmonale . COMPARISON: CTA chest 03/13/2025 CT abdomen pelvis 04/12/2024 TECHNIQUE: Helical CTA performed from thoracic inlet to upper abdomen IV contrast information not listed in PACS Coronal, sagittal reformats. Multiplanar MIPS CT images acquired with automatic exposure control for dose reduction DLP: 377 mGy-cm FINDINGS: Pulmonary arteries: No PE. Thoracic Aorta: No dissection or aneurysm. Heart/pericardium: Unremarkable. RV/LV ratio: Normal. Lungs/Pleura: Clear. Tracheobronchial tree: Patent. Nodes: No enlarged nodes. Bones: No acute bony abnormality. Soft tissues: Unremarkable. Visualized upper abdomen: Hepatomegaly, with steatosis. Areas of colonic wall thickening. IMPRESSION: 1. No PE or other acute cardiopulmonary findings. 2. Chronic colitis. Reviewed, dictated and finalized at location R.
--- OUTSIDE RECORDS SUMMARY | 2025-08-21 12:01 | XMS_ITS | Clinical Summary ---
Author Organization [facility] Address [address] [place] [address] Phone Care Team Providers Care Evaluator Name Role Phone Sanford Harvey MD Primary Care Provider [phone] Allergies Active Allergy Reactions Criticality Noted Date [...] Grams by mouth daily with breakfast. Active Active Problems Problem Noted Date Diagnosed Date Acute pulmonary embolism 03/14/2025 Acute deep vein thrombosis ( DVT) of proximal vein of left lower extremity 03/14/2025 Ulcerative pancolitis without complication 03/14 Protein-calorie malnutrition, moderate Encounters Date Type Department Care Team Description 08/08/2025 External Device Data [facility] ABSTRACTION Provider, Abstract 08/07/2025 External Device Data [facility] ABSTRACTION Provider, Abstract 07/25/2025 External Device Data [facility] ABSTRACTION Provider, Abstract 06/27/2025 External Device Data [facility] ABSTRACTION Provider, Abstract 06/26/2025 External Device Data [facility] ABSTRACTION Provider, Abstract 05/22/2025 External Device Data [facility] ABSTRACTION Provider, Abstract 05/22/2025 External Device Data [facility] ABSTRACTION Provider, Abstract from Last 3 Months Family History Medical [...] on file Legal Sex Male 7:19 PM MEDICAL ONCOLOGY PHYSICIAN Gender Identity Not on file Sexual Orientation [...] 12:22 AM CDT Height 177.8 cm (5' 10) 03/14/2025 12:22 AM CDT Body Mass Index 27.69 03/14/2025 12:22 AM CDT Plan of Treatment Upcoming Encounters Date Type Department Care Team (Late st Contact Info) Description 10/22/2025 3:00 PM MEDICAL ONCOLOGY PHYSICIAN Office Visit [facility] Oncology and Hematology - [place] [address] [place] [address] Jerome Marcial MD [address] [place] [address] Health Maintenance Due Date Last Done Comments Pre-Diabetes and Diabetes Screening 1980 DTAP/TDAP/TD VACCINES (1 - Tdap) 2000 HEPATITIS B VACCINES (1 of 3 - 19+ 3-dose series) 06/2000 HPV VACCINES (1 - 3-dose SCDM series) 2008 INFLUENZA VACCINE (#1) 2025 Insurance [employer] BLUE ACCESS CHOICE RX [employer] Advance Directives For more information, please contact: [phone] * Full Code (Latest Code Status on File) Date Activated Date Inactivated Comments 03/14/2025 8:12 AM 03/16/2025 1:42 PM * Default Full Code - Needs Discussion Date Activated Date Inactivated Comments 03/14/2025 2:30 AM 03/14/2025 8:11 AM Care Teams Evaluator Relationship Specialty Start Date End Date Sanford Harvey MD [address] [place] [phone] PCP - General Family Practice 03/14/25
== END 2025-08-21 11:53 | disposition home or self-care (01) ==
PROVIDERS: PCP Emergency Medicine; Visit Provider Emergency Medicine
DX: K52.9 Noninfective gastroenteritis and colitis, unspecified (principal); I26.99 Other pulmonary embolism without acute cor pulmonale
CPT/HCPCS: 71275; Q9967

== ENCOUNTER 2025-08-24 15:56 | Outpatient (CLI) | payer BC, SELFPAY ==
--- OUTSIDE RECORDS SUMMARY | 2025-08-23 14:00 | XMS_ITS | Encounter Summary ---
Author Organization [facility] Address [address] [facility] [place] [address] [place] [address] Phone Care Team Providers Care Housekeeping Coordinator Name Role Phone Sanford Harvey MD Primary Care Provider [phone] Reason for Visit * Consultation (Routine) - Authorized Specialty Diagnoses / Procedures Referred By Contjarod t Referred To Contact Gastroenterology Diagnoses Other ulcerative colitis without complication Sanford Harvey MD [address] [place] [address] DR [address]RIFF[place] [address] Phone: tel: fax: [facility] (All Locations) Referral ID Status Reason Start Date Expiration Date Visits Requested Visits Authorized [id number] Authorized Specialty Services Required 07/27/2025 08/26/2026 12 12 Encounter Details Date Type Department Care Team (Late st Contact Info) Description 08/23/2025 2:00 PM CDT Office Visit [facility] Medicine Gastroenterology [address] [facility] [address] [facility] [address] [place] [address] [place] [address] Apmaro Ambriz MD PhD [address] [place] [address] Ulcerative pancolitis with rectal bleeding (HCC) (Primary Dx); High risk medications (not anticoagulants) long-term use Social History Tobacco Use Types Packs/Day Years Used Date Smoking Tobacco: Never Passive Smoke Exposure: Never Smokeless Tobacco: Never Tobacco Cessation:Counseling Given: Not Answered Sex and Gender Information Value Date Recorded Sex Assigned at Not on file Legal Sex Male 1:22 AM [employer] Gender Identity Not on file Sexual Orientation Not on file documented as of this encounter Last Filed Vital Signs Vital Sign Reading Time Taken Comments Blood Pressure 113/76 08/23/2025 1:40 PM CDT Pulse 71 08/23/2025 1:40 PM CDT Temperature 36.7 C (98.1 F) 08/23/2025 1:40 PM CDT Respiratory Rate - - Oxygen Saturation - - Inhaled Oxygen Concentration - - Weight 85.7 kg (189 lb) 08/23/2025 1:40 PM CDT Height 180.3 cm (5' 11) 08/23/2025 1:40 PM CDT Body Mass Index 26.36 08/23/2025 1:40 PM CDT documented in this encounter Patient Instructions * Patient Instructions* Desi Landers RN - 08/23/2025 2:00 PM CDT Return office visit is needed in 3 months We will submit for Infliximab Labs and fecal calprotectin today documented in this encounter Ordered Prescriptions Prescription Sig Dispense Quantity Refills Last Filled Start Date End Date mesalamine (CANASA) 1,000 mg suppositoryIndica tions:Ulcerative Proctitis Insert 1 suppository (1,000 mg total) into the rectum nightly Use as directed 30 suppository 11 5 08/23/20 26 documented in this encounter Miscellaneous Notes * Assessment & Plan Note - Amparo Ambriz MD PhD - 08/23/2025 4:29 PM CDTAssociated Problem(s): Ulcerative pancolitis with rectal bleeding (HCC) -Given the severity of his symptoms, we will switch him to infliximab. We also discussed the optionof Entyvio but he is concerned about -For his rectal pain and tenesmus, we will start mesalamine suppositories (he has not been able to tolerate Rowasa enemas) -Check ESR, CRP, fecal calprotectin to get a baseline -RTC 3 months * Assessment & Plan Note - Amparo Ambriz MD PhD - 08/23/2025 3:53 PM CDTAssociated Problem(s): High risk medications (not anticoagulants) long- term use Drug Class: Anti-TNF (e.g., infliximab, adalimumab). Biosimilars have equal efficacy as the originator drugs. Mechanism of Action: Monoclonal antibody targeting TNF-? to suppress systemic inflammation. Common Side Effects: Injection/infusion reactions, headache, nausea, Serious Side Effects: Serious infections (e.g., TB, histoplasmosis), rare demyelinating disease, lymphoma, worsening heart failure. Tests Required: Quantiferon Gold or similar TB test, Hepatitis B serologies, CBC/CMP prior to and during treatment. Monitoring Statement: We use an active monitoring strategy to detect complications early. This treatment requires medical visits every 6-12 months to ensure safe and effective dosing. Patients shouldcontact us immediately if they think they are experiencing a side effect related to their therapy. Vaccinations: Pneumonia vaccine, Shingrex if appropriate, Hepatitis B, HPV vaccine if appropriate Preventative Care: Annual skin exam by lead android developer or other qualified provider if fair skin or taking with azathioprine/mercaptopurine. Wear SPF 30 sunscreen. Annual Pap exam for females. Additional Drug Information is available on the Crohn's [employer] Colitis [employer] Website: [email or web address] Plan to switch to infliximab, will check TB and Hepatitis B today documented in this encounter Plan of Treatment Pending Results Name Type Priority Associated Diagnoses Date /Time T-SPOT.TB Blood Microbiology Routine Ulcerative pancolitis with rectal bleeding (HCC) High risk medications (not anticoagulants) long-term use 08/23/2025 3:40 PM CDT Scheduled Orders Name Type Priority Associated Diagnoses Orde r Schedule T-SPOT.TB Blood Microbiology Routine Ulcerative pancolitis with rectal bleeding (HCC) High risk medications (not anticoagulants) long-term use Expected: 08/23/2025, Expires: 08/23/2026 Calprotectin, fecal Lab Routine Ulcerative pancolitis with rectal bleeding (HCC) Expected: 08/23/2025, Expires: 08/23/2026 documented as of this encounter Results * (ABNORMAL) Iron profile w/ IBC (08/23/2025 3:40 PM CDT) [facility] Iron 34(L) 50 - 150 mcg/dL TIBC 221(L) 250 - 400 mcg/dL [facility] Transferrin saturation 15(L) 20 - 50 % [facility] Blood 08/23/2025 3:40 PM CDT 08/23/2025 4:28 PM CDT us Amparo Ambriz MD PhD LAB BLOOD SAMMY BELTRÁN Final Result [facility] Department [place] [address] * Ferritin (08/23/2025 3:40 PM CDT) [facility] Ferritin 107 30 - 400 ng/mL Blood 08/23/2025 3:40 PM CDT 08/23/2025 4:28 PM CDT us Amparo Ambriz MD PhD LAB BLOOD SAMMY BELTRÁN Final Result [facility] Department [place] [address] * Vitamin B12 (08/23/2025 3:40 PM CDT) Pathologist [facility] Vitamin B12 372 230 - 1,250 pg/mL Blood 08/23/2025 3:40 PM CDT 08/23/2025 4:28 PM CDT Amparo Ambriz MD PhD LAB BLOOD SAMMY BELTRÁN Final Result Performing Organization Address [facility] Co de Phone Number [facility] [place] [employer] [place] [address] * (ABNORMAL) Vitamin D 25 hydroxy (08/23/2025 3:40 PM CDT) Pathologist [facility] Vitamin D 25-OH 16(L) 30 - 80 ng/mL Blood 08/23/2025 3:40 PM CDT 08/23/2025 4:28 PM CDT us Amparo Ambriz MD PhD LAB BLOOD SAMMY BELTRÁN Final Result Performing Organization Address [facility] Co de Phone Number [facility] [place] [employer] [place] [address] * Hepatitis B core antibody, total Blood (08/23/2025 3:40 PM CDT) Pathologist [facility] Hep B core IgG/IgM Nonreactive Nonreactive Blood 08/23/2025 3:40 PM CDT 08/23/2025 4:28 PM CDT Amparo Ambriz MD PhD LAB MICROBIOLO GY - GENERAL ORDERABLES Final Result Performing Organization Address [facility] Co de Phone Number [facility] [place] [employer] [place] [address] * Hepatitis B surface antibody (immune status) Blood (08/23/2025 3:40 PM CDT) [facility] HBsAb (immune status) Nonreactive Comment:This result is consi stent with a lack of immunity to Hepatitis B Virus when used in the setting of routine screening. Current interpretative data was last revised on 22 Blood 08/23/2025 3:40 PM CDT 08/23/2025 4:28 PM CDT Amparo Ambriz MD PhD LAB MICROBIOLO GY - GENERAL ORDERABLES Final Result Performing Organization Address City/[facility] Co de Phone Number [facility] Department [place] [address] * Hepatitis B Surface Antigen Blood (08/23/2025 3:40 PM CDT) [facility] HepBsAg Nonreactive Nonreactive Blood 08/23/2025 3:40 PM CDT 08/23/2025 4:28 PM CDT Amparo Ambriz MD PhD LAB MICROBIOLO GY - GENERAL ORDERABLES Final Result Performing Organization Address [facility] de Phone Number [facility] Department [place] [address] * (ABNORMAL) CBC with auto differential (08/23/2025 3:40 PM CDT) [facility] WBC 5.41 3.80 - 9.90 K/cumm Hgb 12.3(L) 13.0 - 17.5 g/dL [facility] Hct 39.2 38.9 - 50.3 % [facility] Plt 291 150 - 400 K/cumm [facility] MPV 9.6 9.1 - 12.3 fL [facility] RBC 4.36 4.30 - 5.80 M/cumm [facility] MCV 89.9 81.3 - 96.4 fL [facility] MCH 28.2 27.1 - 33.3 pg [facility] MCHC 31.4(L) 32.3 - 35.7 g/dL [facility] RDW CV 12.8 11.1 - 14.9 % [facility] RDW SD 42.0 35.7 - 48.1 fL [facility] NRBC abs 0.00 0.00 - 0.01 K/cumm [facility] Blood 08/23/2025 3:40 PM CDT 08/23/2025 4:28 PM CDT Amparo Ambriz MD PhD LAB BLOOD SAMMY BELTRÁN Final Result [facility] Department [place] [address] * (ABNORMAL) Comprehensive metabolic panel (08/23/2025 3:40 PM CDT) Sodium 139 135 - 145 mmol/L Potassium, pl 4.2 3.3 - 4.9 mmol/L [facility] Chloride 103 97 - 110 mmol/L [facility] CO2 18(L) 22 - 32 mmol/L [facility] Anion gap 18(H) 2 - 15 mmol/L [facility] BUN 11 6 - 25 mg/dL [facility] Creatinine 1.02 0.80 - 1.30 mg/dL [facility] Glucose 80 70 - 199 mg/dL [facility] Comment: Interpretive Data Fasting glucose >/= 126 mg/dl is diagnostic for diabetes. Fasting is defined as no caloric intake for at least 8 hours. Fasting glucose between 100 mg/dl to 125 mg/dl is diagnostic of prediabetes. In a patient with classic symptoms of hyperglycemia or hyperglycemic crisis, a random glucose >/= 200 mg/dl is diagnostic for diabetes. In the absence of unequivocal hyperglycemia, results should be confirmed by repeat testing. The classification and Diagnosis of Diabetes Diabetes Care 202; 46: S19-S40. Current interpretive data was last revised 2022. Calcium 8.7 8.5 - 10.3 mg/dL [facility] Bilirubin, total 0.3 0.1 - 1.2 mg/dL [facility] Protein, pl 7.4 6.5 - 8.5 g/dL [facility] Albumin 3.6 3.5 - 5.0 g/dL [facility] Alk phos 86 40 - 130 Units/L [facility] ALT 41 7 - 55 Units/L [facility] AST 37 10 - 50 Units/L [facility] Blood 08/23/2025 3:40 PM CDT 08/23/2025 4:28 PM CDT Amparo Ambriz MD PhD LAB BLOOD ORDE LEIGH ANN Final Result Performing Organization Address [facility] de Phone Number [facility] [place] [employer] [place] [address] * (ABNORMAL) CRP (acute phase) (08/23/2025 3:40 PM CDT) CRP 10.5(H) <=10.0 mg/L Blood 08/23/2025 3:40 PM CDT 08/23/2025 4:28 PM CDT Amparo Ambriz MD PhD LAB BLOOD ORDE LEIGH ANN Final Result Performing Organization Address [facility] de Phone Number [facility] [place] [address] * (ABNORMAL) Erythrocyte sedimentation rate (08/23/2025 3:40 PM CDT) Erythrocyte sedimentation rate 22(H) 1 - 15 mm/hr Blood 08/23/2025 3:40 PM CDT 08/23/2025 4:28 PM CDT Amparo Ambriz MD PhD LAB BLOOD ORDE LEIGH ANN Final Result Performing Organization Address [facility] de Phone Number [facility] [place] [place] [address] documented in this encounter Visit Diagnoses Diagnosis Ulcerative pancolitis with rectal bleeding (HCC)- Primary High risk medications (not anticoagulants) long-term use Encounter for long-term (current) use of other medications documented in this encounter Historical Medications * This list may reflect changes made after this encounter. acetaminophen (TYLENOL) 500 mg tablet Take 1 tablet (500 mg total) by mouth every 4 (four) hours as needed for pain traMADoL (ULTRAM) 50 mg tablet Take 1 tablet (50 mg total) by mouth every 6 (six) hours as needed pantoprazole DR (PROTONIX) 40 mg EC tablet Take 1 tablet (40 mg total) by mouth 2 (two) times a day 06/26/2025 loperamide (IMODIUM A-D) 2 mg tablet Take 1 tablet (2 mg total) by mouth every 4 (four) hours as needed Eliquis 5 mg tablet Take 1 tablet (5 mg total) by mouth 2 (two) times a day 07/17/2025 diphenoxylate-atr opine (LOMOTIL) 2.5-0.025 mg per tabletIndications :diarrhea Take 1 tablet by mouth 3 times a day hyoscyamine (LEVSIN) 0.125 mg SL tablet Take 1 tablet (0.125 mg total) by mouth every 4 (four) hours as needed 07/15/2025 mesalamine (LIALDA) 1.2 gram EC tablet Take 1 tablet (1.2 g total) by mouth daily budesonide EC (ENTOCORT EC) 3 mg 24 hr capsule Take 3 capsules (9 mg total) by mouth daily Tremfya Pen 200 mg/2 mL pen injector Inject 200 mg as directed once 07/09/2025 added in this encounter Orders Lab Orders Without Results Count Last Ordered D ate First Ordered Date CALPROTECTIN, FECAL 1 08/23/2025 Outpatient Referral Count Last Ordered Date Fir st Ordered Date AMB REFERRAL TO GASTROENTEROLOGY 08/23/20 documented in this encounter Care Teams Housekeeping Coordinator Relationship Specialty Start Date End Date Sanford Harvey MD [address] [place] [address] PCP - General Family Medicine 08/23/25 documented as of this encounter
--- OUTSIDE RECORDS SUMMARY | 2025-08-23 16:35 | XMS_ITS | Encounter Summary ---
Author Organization [facility] Healthcare Address [address] [place] [id number] Care Team Providers Care Insole Reinforcer Name Role Phone Sanford Harvey MD Primary Care Provider [phone] Encounter Details Date Type Department Care Team (Late st Contact Info) Description 08/23/2025 4:35 PM CDT Lab 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 Gender Identity Not on file Sexual Orientation Not on file documented as of this encounter Plan of Treatment Pending Results Name Type Priority Associated Diagnoses Date /Time T-SPOT.TB Blood Microbiology Routine Ulcerative pancolitis with rectal bleeding (HCC) High risk medications (not anticoagulants) long-term use 08/23/2025 3:40 PM CDT documented as of this encounter Procedures Procedure Name Priority Date/Time Associated Diagnosis Comments EGFR Routine 08/23/2025 3:40 PM CDT Ulcerative pancolitis with rectal bleeding (HCC) High risk medications (not anticoagulants) long-term use DIFFERENTIAL AUTO Routine 08/23/2025 3:4 0 PM CDT Ulcerative pancolitis with rectal bleeding (HCC) High risk medications (not anticoagulants) long-term use IRON PROFILE W/ IBC Routine 08/23/2025 3 :40 PM CDT Ulcerative pancolitis with rectal bleeding (HCC) High risk medications (not anticoagulants) long-term use CBC WITH AUTO DIFFERENTIAL Routine 08/23/2025 3:40 PM CDT Ulcerative pancolitis with rectal bleeding (HCC) High risk medications (not anticoagulants) long-term use HEPATITIS B CORE ANTIBODY, TOTAL Routine 08/23/2025 3:40 PM CDT Ulcerative pancolitis with rectal bleeding (HCC) High risk medications (not anticoagulants) long-term use VITAMIN D 25 HYDROXY Routine 08/23/2025 3:40 PM CDT Ulcerative pancolitis with rectal bleeding (HCC) High risk medications (not anticoagulants) long-term use HEPATITIS B SURFACE ANTIBODY (IMMUNE STATUS) Routine 08/23/2025 3:40 PM CDT Ulcerative pancolitis with rectal bleeding (HCC) High risk medications (not anticoagulants) long-term use HEPATITIS B SURFACE ANTIGEN Routine 08/23/2025 3:40 PM CDT Ulcerative pancolitis with rectal bleeding (HCC) High risk medications (not anticoagulants) long-term use ERYTHROCYTE SEDIMENTATION RATE Routine 08/23/2025 3:40 PM CDT Ulcerative pancolitis with rectal bleeding (HCC) High risk medications (not anticoagulants) long-term use CRP (ACUTE PHASE) Routine 08/23/2025 3:4 0 PM CDT Ulcerative pancolitis with rectal bleeding (HCC) High risk medications (not anticoagulants) long-term use FERRITIN Routine 08/23/2025 3:40 PM CDT Ulcerative pancolitis with rectal bleeding (HCC) High risk medications (not anticoagulants) long-term use VITAMIN B12 Routine 08/23/2025 3:40 PM CDT Ulcerative pancolitis with rectal bleeding (HCC) High risk medications (not anticoagulants) long-term use COMPREHENSIVE METABOLIC PANEL Routine 08/23/2025 3:40 PM CDT Ulcerative pancolitis with rectal bleeding (HCC) High risk medications (not anticoagulants) long-term use documented in this encounter Results * eGFR (08/23/2025 3:40 PM CDT) Pathologist [facility] eGFR >90 >=60 mL/min/1. 73 m2 Comment: Interpretive Data Reference Interval Normal >/= 90 mL/min/1.73m2 Mildly decreased* 60 - 89 mL/min/1.73m2 Mildly to moderately decreased 45 - 59 mL/min/1.73m2 Moderately to severely decreased 30 - 44 mL/min/1.73m2 Severely decreased 15 - 29 mL/min/1.73m2 Kidney Failure < 15 mL/min/1.73m2 *Relative to young adult level Estimated glomerular filtration rate is determined by the 2020 CKD-EPI equation recommended by the National Kid[employer] (A Unifying Approach to GFR Estimation: Recommendations of the NKF-ASK Task Force on Reassessing the Inclusion of Race in Diagnosing Kidney Disease, JASN 2020). The CKD-EPI equation should not be used for patients with unstable renal function and has not been validated in children and those over 70. Current interpretive data was last reviewed 2021. Blood 08/23/2025 3:40 PM CDT 08/23/2025 4:32 PM CDT Amparo Ambriz MD PhD LAB BLOOD SAMMY BELTRÁN Final Result [facility] Department [place] [address] * (ABNORMAL) Differential, auto (08/23/2025 3:40 PM CDT) Pathologist [facility] Neutrophil abs 4.29 1.50 - 6.50 K/cumm Imm gran abs 0.01 0.00 - 0.10 K/cumm [facility] Lymphocyte abs 0.61(L) 0.80 - 3.30 K/cumm [facility] Monocyte abs 0.32 0.20 - 0.80 K/cumm [facility] Eosinophil abs 0.15 0.00 - 0.50 K/cumm [facility] Basophil abs 0.03 0.00 - 0.10 K/cumm [facility] Neutrophil pct 79.2 % [facility] Comment: Interpretive Data Percent cell count reference ranges are not reported, since discordance with absolute values may lead to misinterpretation of CBC data. Current Interpretive Data was last revised on 2018. Imm gran pct 0.2 % [facility] Comment: Interpretive Data Percent cell count reference ranges are not reported, since discordance with absolute values may lead to misinterpretation of CBC data. Current Interpretive Data was last revised on 2018. Lymphocyte pct 11.3 % [facility] Comment: Interpretive Data Percent cell count reference ranges are not reported, since discordance with absolute values may lead to misinterpretation of CBC data. Current Interpretive Data was last revised on 2018. Monocyte pct 5.9 % [facility] Comment: Interpretive Data Percent cell count reference ranges are not reported, since discordance with absolute values may lead to misinterpretation of CBC data. Current Interpretive Data was last revised on 2018. Eosinophil pct 2.8 % [facility] Comment: Interpretive Data Percent cell count reference ranges are not reported, since discordance with absolute values may lead to misinterpretation of CBC data. Current Interpretive Data was last revised on 2018. Basophil pct 0.6 % [facility] Comment: Interpretive Data Percent cell count reference ranges are not reported, since discordance with absolute values may lead to misinterpretation of CBC data. Current Interpretive Data was last revised on 2018. Blood 08/23/2025 3:40 PM CDT 08/23/2025 4:28 PM CDT us Amparo Ambriz MD PhD LAB BLOOD SAMMY BELTRÁN Final Result [facility] Department [place] [address] * (ABNORMAL) Erythrocyte sedimentation rate (08/23/2025 3:40 PM CDT) Erythrocyte sedimentation rate 22(H) 1 - 15 mm/hr Blood 08/23/2025 3:40 PM CDT 08/23/2025 4:28 PM CDT Amparo Ambriz MD PhD LAB BLOOD ORDRoseline BELTRÁN Final Result Performing Organization Address City/[facility]/ZIP Co de Phone Number [facility] Department [place] [address] * (ABNORMAL) CRP (acute phase) (08/23/2025 3:40 PM CDT) [facility] CRP 10.5(H) <=10.0 mg/L Blood 08/23/2025 3:40 PM CDT 08/23/2025 4:28 PM CDT Amparo Ambriz MD PhD LAB BLOOD SAMMY BELTRÁN Final Result Performing Organization Address [facility] Co de Phone Number [facility] Department [place] [address] * (ABNORMAL) Comprehensive metabolic panel (08/23/2025 3:40 PM CDT) [facility] Sodium 139 135 - 145 mmol/L Potassium, pl 4.2 3.3 - 4.9 mmol/L [facility] Chloride 103 97 - 110 mmol/L [facility] CO2 18(L) 22 - 32 mmol/L [facility] Anion gap 18(H) 2 - 15 mmol/L [facility] BUN 11 6 - 25 mg/dL [facility] Creatinine 1.02 0.80 - 1.30 mg/dL [facility] Glucose 80 70 - 199 mg/dL [facility] Comment: Interpretive Data Fasting glucose >/= 126 [...] 2022. Calcium 8.7 8.5 - 10.3 mg/dL [facility] Bilirubin, total 0.3 0.1 - 1.2 mg/dL [facility] Protein, pl 7.4 6.5 - 8.5 g/dL [facility] Albumin 3.6 3.5 - 5.0 g/dL [facility] Alk phos 86 40 - 130 Units/L [facility] ALT 41 7 - 55 Units/L [facility] AST 37 10 - 50 Units/L [facility] Blood 08/23/2025 3:40 PM CDT 08/23/2025 4:28 PM CDT Amparo Ambriz MD PhD LAB BLOOD SAMMY BELTRÁN Final Result [facility] Department [place] [address] * (ABNORMAL) CBC with auto differential (08/23/2025 3:40 PM CDT) WBC 5.41 3.80 - 9.90 K/cumm Hgb 12.3(L) 13.0 - 17.5 g/dL [facility] Hct 39.2 38.9 - 50.3 % [facility] Plt 291 150 - 400 K/cumm [facility] MPV 9.6 9.1 - 12.3 fL [facility] RBC 4.36 4.30 - 5.80 M/cumm [facility] MCV 89.9 81.3 - 96.4 fL [facility] MCH 28.2 27.1 - 33.3 pg [facility] MCHC 31.4(L) 32.3 - 35.7 g/dL [facility] RDW CV 12.8 11.1 - 14.9 % [facility] RDW SD 42.0 35.7 - 48.1 fL [facility] NRBC abs 0.00 0.00 - 0.01 K/cumm [facility] Blood 08/23/2025 3:40 PM CDT 08/23/2025 4:28 PM CDT us Amparo Ambriz MD PhD LAB BLOOD SAMMY BELTRÁN Final Result Performing Organization Address City/[facility]/ZIP Co de Phone Number [facility] [place] [address] * Hepatitis B Surface Antigen Blood (08/23/2025 3:40 PM CDT) HepBsAg Nonreactive Nonreactive Blood 08/23/2025 3:40 PM CDT 08/23/2025 4:28 PM CDT us Amparo Ambriz MD PhD LAB MICROBIOLO GY - GENERAL ORDERABLES Final Result Performing Organization Address [facility] Co de Phone Number [facility] [place] [address] * Hepatitis B surface antibody (immune status) Blood (08/23/2025 3:40 PM CDT) Pathologist [facility] HBsAb (immune status) Nonreactive Comment:This result is consi stent with a lack of immunity to Hepatitis B Virus when used in the setting of routine screening. Current interpretative data was last revised on 22 Blood 08/23/2025 3:40 PM CDT 08/23/2025 4:28 PM CDT us Amparo Ambriz MD PhD LAB MICROBIOLO GY - GENERAL ORDERABLES Final Result Performing Organization Address City[facility] Co de Phone Number [facility] [place] [address] * Hepatitis B core antibody, total Blood (08/23/2025 3:40 PM CDT) Pathologist [facility] Hep B core IgG/IgM Nonreactive Nonreactive Blood 08/23/2025 3:40 PM CDT 08/23/2025 4:28 PM CDT us Amparo Ambriz MD PhD LAB MICROBIOLO GY - GENERAL ORDERABLES Final Result [facility] [place] [address] * (ABNORMAL) Vitamin D 25 hydroxy (08/23/2025 3:40 PM CDT) [facility] Vitamin D 25-OH 16(L) 30 - 80 ng/mL Blood 08/23/2025 3:40 PM CDT 08/23/2025 4:28 PM CDT us Amparo Ambriz MD PhD LAB BLOOD ORDE RABELOISA Final Result Performing Organization Address City/[facility]/ZIP Co de Phone Number [facility] [place] [address] * Vitamin B12 (08/23/2025 3:40 PM CDT) [facility] Vitamin B12 372 230 - 1,250 pg/mL Blood 08/23/2025 3:40 PM CDT 08/23/2025 4:28 PM CDT us Amparo Ambriz MD PhD LAB BLOOD ORDE RABLES Final Result Performing Organization Address City[facility]/ZIP Co de Phone Number [facility] [place] [address] * Ferritin (08/23/2025 3:40 PM CDT) [facility] Ferritin 107 30 - 400 ng/mL Blood 08/23/2025 3:40 PM CDT 08/23/2025 4:28 PM CDT us Amparo Ambriz MD PhD LAB BLOOD SAMMY BELTRÁN Final Result Performing Organization Address [facility] Co de Phone Number [facility] [place] [address] * (ABNORMAL) Iron profile w/ IBC (08/23/2025 3:40 PM CDT) Iron 34(L) 50 - 150 mcg/dL TIBC 221(L) 250 - 400 mcg/dL [facility] Transferrin saturation 15(L) 20 - 50 % [facility] Blood 08/23/2025 3:40 PM CDT 08/23/2025 4:28 PM CDT us Amparo Ambriz MD PhD LAB BLOOD SAMMY BELTRÁN Final Result Performing Organization Address [facility]/[place] de Phone Number [facility] [place] [address] documented in this encounter Visit Diagnoses Diagnosis Ulcerative pancolitis with rectal bleeding (HCC) High risk medications (not anticoagulants) long-term use Encounter for long-term (current) use of other medications documented in this encounter Care Teams Insole Reinforcer Relationship Specialty Start Date End Date Sanford Harvey MD [address] [place] [address] PCP - General Family Medicine 08/23/25 documented as of this encounter
--- NOTE | ~2025-08-24 | US_ITS ---
EXAMINATION: US venous doppler [facility], 08/24/2025 16:45 CDT HISTORY: dvt of left leg COMPARISON: None Technique: Jackson-scale and color Doppler images were attempted of the lower saphenofemoral junction, common femoral vein,superficial femoral vein, proximal deep femoral vein, proximal deep femoral vein, popliteal vein and posterior tibial veins. Findings: Deep Venous System:There is thrombus with diminished flow in the left superficial femoral and popliteal veins, the remaining visualized deep venous system is unremarkable. Superficial Venous SystemNo superficial thrombophlebitis. Soft tissues: Soft tissues are unremarkable. Impression: Left-sided DVT Reviewed, dictated and finalized at location P. Impression: Left-sided DVT
--- OUTSIDE RECORDS SUMMARY | 2025-08-24 16:01 | XMS_ITS | Encounter Summary ---
Author Organization [facility] Address [address] [place] [address] Phone Care Team Providers Care Airborne Operations Superintendent Name Role Phone Martin Scott DO Primary Care Provider [phone] Sanford Harvey MD Primary Care Provider [phone] Encounter Details Date Type Department Care Team (Late st Contact Info) Description 08/10/2025 Telephone [facility] Medicine Cardiology [facility] [address] [place] [address] [place] [address] Coco Wagner Social History Tobacco Use Types Packs/Day Years Used Date Smoking Tobacco: Never Assessed Sex and Gender Information Value Date Recorded Sex Assigned at Not on file 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 Gender Identity Not on file Sexual Orientation Not on file documented as of this encounter Miscellaneous Notes * Telephone Encounter - Coco Wagner - 08/10/2025 3:39 PM CDT CARDIOLOGY NEW PATIENT RECORDS REVIEW Insurance Information Insurance Library Insurance Provider:[employer] Member ID: Group number: Diagnosis and Referring Provider Information (Check for Referrals in [facility]) Cardiac Diagnosis:I26.09 (ICD-10-CM) - Other pulmonary embolism with acute cor pulmonale, unspecified chronicity (HCC) Referring Provider:Sanford Harvey Referring Provider Specialty:Family Medicine Referring Provider Phone: Current/Former Lead Teller (if different from referring provider):None Current/Former Lead Teller Phone: Questions to Determine Placement for Specialty Clinics Cardiology-Oncology Are you actively undergoing cancer treatments including radiation, chemotherapy, or immunotherapy or is this planned in the future?: no When: Where: Congenital Is this a heart condition that has existed since : no Maternal- Cardiology (Females Only) Are you or had a baby in the past year: no Sports Medicine Do you regularly exercise or play sports: no Are the symptoms or concerns associated with acviity: no Hypertension (If yes, must be referred by MD) Are you a hemodialysis or peritoneal dialysis patient: no Referring provider: Cardiology History Questions Have you been hospitalized for cardiac issues: yes When:February Where:[facility] - pt was admitted for embolism in legs - traveled [facility] also caused cardiac issues. Have you had an echo: yes When: February 2025 Where: [facility] Have you had a stress test: yes When:February 2025 Where: [facility] Have you had an EKG: yes When:February 2025 Where: [facility] Have you had a holter monitor: yes When:February 2025 Where:[facility] Have you had cardiac imaging(CT or MRI): no Testing/imaging: When: Where: Have you had any procedures (cath, CABG, cardioversion, or ablation): no When: Where: Have you had a sleep study done: no When: Where: Do you have an implantable cardiac device: no Type: Shareholder: When: Where: Appointment Details Date:09/06/25 Time:11:00 am Location:[facility] Provider: Beatriz Santos req to schedule on this DOS due to personal issues. documented in this encounter Plan of Treatment Not on file documented as of this encounter Visit Diagnoses Not on filedocumented in this encounter Care Teams Airborne Operations Superintendent Relationship Specialty Start Date End Date Martin Scott DO PCP - General 09/06/14 08/22/25 Sanford Harvey MD [address] [place] [address] PCP - General Family Medicine 08/23/25 documented as of this encounter
--- OUTSIDE RECORDS SUMMARY | 2025-08-24 16:01 | XMS_ITS | Clinical Summary ---
Author Organization [facility] Address [address] [place] [id number] Care Team Providers Care Framing And Hanging Name Role Phone Sanford Harvey MD Primary Care Provider [phone] Allergies No known active allergies Medications Tremfya Pen 200 mg/2 mL pen injector Inject 200 mg as directed once 5 Active budesonide EC (ENTOCORT EC) 3 mg 24 hr capsule Take 3 capsules (9 mg total) by mouth daily Active mesalamine (LIALDA) 1.2 gram EC tablet Take 1 tablet (1.2 g total) by mouth daily Active hyoscyamine (LEVSIN) 0.125 mg SL tablet Take 1 tablet (0.125 mg total) by mouth every 4 (four) hours as needed 5 Active diphenoxylate- atropine (LOMOTIL) 2.5-0.025 mg per tabletIndicati ons:diarrhea Take 1 tablet by mouth 3 times a day Active Eliquis 5 mg tablet Take 1 tablet (5 mg total) by mouth 2 (two) times a day 5 Active loperamide (IMODIUM A-D) 2 mg tablet Take 1 tablet (2 mg total) by mouth every 4 (four) hours as needed Active pantoprazole DR (PROTONIX) 40 mg EC tablet Take 1 tablet (40 mg total) by mouth 2 (two) times a day 5 Active traMADoL (ULTRAM) 50 mg tablet Take 1 tablet (50 mg total) by mouth every 6 (six) hours as needed Active acetaminophen (TYLENOL) 500 mg tablet Take 1 tablet (500 mg total) by mouth every 4 (four) hours as needed for pain Active mesalamine (CANASA) 1,000 mg suppositoryInd ications:Ulcer ative Proctitis Insert 1 suppository (1,000 mg total) into the rectum nightly Use as directed 30 suppository 11 5 026 Active Active Problems Problem Noted Date Diagnosed Date Ulcerative pancolitis with rectal bleeding 08/23 Overview (08/23/2025): Year of diagnosis February 2024 Year symptoms began 2007 Distribution Extensive (E3) Extraintestinal manifestations eczema, Complications C diff Prior surgeries hernia repair Prior treatments Stelara, Budesonide, Hyoscyamine, Loperamide, Lomotil Current treatment Tremfya (started Nov 2024), Lialda, Rowasa enemas (but not able to tolerate) TPMT Assessment & Plan (08/23/2025 4:30 PM CDT): -Given the severity of his symptoms, we will switch him to infliximab. We also discussed the option of Entyvio but he is concerned about -For his rectal pain and tenesmus, we will start mesalamine suppositories (he has not been able to tolerate Rowasa enemas) -Check ESR, CRP, fecal calprotectin to get a baseline -RTC 3 months High risk medications (not anticoagulants) long- term use 08/23/2025 Assessment & Plan (08/23/2025 3:53 PM CDT): Drug Class: Anti-TNF (e.g., infliximab, adalimumab). Biosimilars [...] to ensure safe and effective dosing. Patients should contact us immediately if they think they are experiencing a side effect related to their therapy. Vaccinations: Pneumonia vaccine, Shingrex if appropriate, Hepatitis B, HPV vaccine if appropriate Preventative Care: Annual skin exam by legal mediator or other qualified provider if fair skin or taking with azathioprine/mercaptopurine. Wear SPF 30 sunscreen. Annual Pap exam for females. Additional Drug Information is available on the Crohn's [employer] Website: [email or web address]://[email or web address].org/[email or web address]/ibd- medication Plan to switch to infliximab, will check TB and Hepatitis B today Viral pharyngitis 03/21/2015 Overview (02/26/2017): Viral pharyngitis Encounters Date Type Department Care Team Description 08/23/2025 4:35 PM CDT Lab [facility] ([facility] [address] [place] [address] Ulcerative pancolitis with rectal bleeding (HCC); High risk medications (not anticoagulants) long-term use 08/23/2025 2:00 PM CDT Office Visit [facility] Medicine Gastroenterology [address] [facility] [address] [place] [address] [place] [address] Amparo Ambriz MD PhD Ulcerative pancolitis with rectal bleeding (HCC) (Primary Dx); High risk medications (not anticoagulants) long-term use 08/10/2025 Telephone [facility] Medicine Cardiology [address] [facility] [address] [place] [address] [place] [address] Coco Wagner from Last 3 Months Family History Medical History Relation Name Comments Colon cancer Father's Sister Colon cancer Paternal Grandmother Relation Name Status Comments Father's Sister Paternal Grandmother Social History Tobacco Use Types Packs/Day Years Used Date Smoking Tobacco: Never Passive Smoke Exposure: Never Smokeless Tobacco: Never Tobacco Cessation:Counseling Given: Not Answered Sex and Gender Information Value Date Recorded Sex Assigned at Not on file 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 Gender Identity Not on file Sexual Orientation Not on file Obstetrics History Last Filed Vital Signs Vital Sign Reading Time Taken Comments Blood Pressure 113/76 08/23/2025 1:40 PM CDT Pulse 71 08/23/2025 1:40 PM CDT Temperature 36.7 C (98.1 F) 08/23/2025 1:40 PM CDT Respiratory Rate - - Oxygen Saturation 97% 03/21/2015 8:39 PM CDT Inhaled Oxygen Concentration - - Weight 85.7 kg (189 lb) 08/23/2025 1:40 PM CDT Height 180.3 cm (5' 11) 08/23/2025 1:40 PM CDT Body Mass Index 26.36 08/23/2025 1:40 PM CDT Plan of Treatment Health Maintenance Due Date Last Done Comments Depression Screening 1981 Hepatitis C Screening 1981 Varicella Vaccines (1 of 2 - 13+ 2-dose series) 1994 Regular Well Visit/Exam 18-64 1999 HPV Vaccines (1 - 3-dose SCDM series) 2008 Covid-19 Vaccine ( season) 2025 08/16/2025, 09/11/2024, 10/03/2021, Additional history exists DTaP/Tdap/Td Vaccine (2 - Td or Tdap) 09/03/2031 09/03/2021, 06/28/2008 Influenza Vaccine Completed 08/16/2025, , 09/02/2022, Additional history exists Hepatitis B Screening Completed 08/23/2025 Pneumococcal vaccine <65 Aged Out No longer eligible based on patient's age to complete this [...] High risk medications (not anticoagulants) long-term use from Last 3 Months Results * eGFR (08/23/2025 3:40 PM CDT) [facility] eGFR >90 >=60 mL/min/1. 73 m2 Comment: [...] 3:40 PM CDT 08/23/2025 4:32 PM CDT us Amparo Ambriz MD PhD LAB BLOOD SAMMY BELTRÁN Final Result [facility] Department [place] [address] * (ABNORMAL) Differential, auto (08/23/2025 3:40 PM CDT) [facility] Neutrophil abs 4.29 1.50 - 6.50 K/cumm Imm gran abs 0.01 0.00 - 0.10 K/cumm [facility] Lymphocyte abs 0.61(L) 0.80 - 3.30 K/cumm [facility] Monocyte abs 0.32 0.20 - 0.80 K/cumm [facility] Eosinophil abs 0.15 0.00 - 0.50 K/cumm [facility] Basophil abs 0.03 0.00 - 0.10 K/cumm [facility] Neutrophil pct 79.2 % [facility] Comment: Interpretive Data Percent cell count reference ranges are not reported, since discordance with absolute values may lead to misinterpretation of CBC data. Current Interpretive Data was last revised on 2018. Imm gran pct 0.2 % [facility] Comment: Interpretive Data Percent cell count reference ranges are not reported, since discordance with absolute values may lead to misinterpretation of CBC data. Current Interpretive Data was last revised on 2018. Lymphocyte pct 11.3 % [facility] Comment: Interpretive Data Percent cell count reference ranges are not reported, since discordance with absolute values may lead to misinterpretation of CBC data. Current Interpretive Data was last revised on 2018. Monocyte pct 5.9 % [facility] Comment: Interpretive Data Percent cell count reference ranges are not reported, since discordance with absolute values may lead to misinterpretation of CBC data. Current Interpretive Data was last revised on 2018. Eosinophil pct 2.8 % [facility] Comment: Interpretive Data Percent cell count reference ranges are not reported, since discordance with absolute values may lead to misinterpretation of CBC data. Current Interpretive Data was last revised on 2018. Basophil pct 0.6 % [facility] Comment: Interpretive Data Percent cell count reference ranges are not reported, since discordance with absolute values may lead to misinterpretation of CBC data. Current Interpretive Data was last revised on 2018. Blood 08/23/2025 3:40 PM CDT 08/23/2025 4:28 PM CDT Amparo Ambriz MD PhD LAB BLOOD SAMMY BELTRÁN Final Result [facility] Department [place] [address] * (ABNORMAL) Iron profile w/ IBC (08/23/2025 3:40 PM CDT) Iron 34(L) 50 - 150 mcg/dL TIBC 221(L) 250 - 400 mcg/dL [facility] Transferrin saturation 15(L) 20 - 50 % [facility] Blood 08/23/2025 3:40 PM CDT 08/23/2025 4:28 PM CDT us Amparo Ambriz MD PhD LAB BLOOD SAMMY BELTRÁN Final Result [facility] Department [place] [place] [address] * (ABNORMAL) CBC with auto differential (08/23/2025 3:40 PM CDT) [facility] WBC 5.41 3.80 - 9.90 K/cumm Hgb 12.3(L) 13.0 - 17.5 g/dL [facility] Hct 39.2 38.9 - 50.3 % [facility] Plt 291 150 - 400 K/cumm [facility] MPV 9.6 9.1 - 12.3 fL [facility] RBC 4.36 4.30 - 5.80 M/cumm [facility] MCV 89.9 81.3 - 96.4 fL [facility] MCH 28.2 27.1 - 33.3 pg [facility] MCHC 31.4(L) 32.3 - 35.7 g/dL [facility] RDW CV 12.8 11.1 - 14.9 % [facility] RDW SD 42.0 35.7 - 48.1 fL [facility] NRBC abs 0.00 0.00 - 0.01 K/cumm [facility] Blood 08/23/2025 3:40 PM CDT 08/23/2025 4:28 PM CDT us Amparo Ambriz MD PhD LAB BLOOD SAMMY BELTRÁN Final Result [facility] Department [place] [address] * Hepatitis B core antibody, total Blood (08/23/2025 3:40 PM CDT) [facility] Hep B core IgG/IgM Nonreactive Nonreactive Blood 08/23/2025 3:40 PM CDT 08/23/2025 4:28 PM CDT us Amparo Ambriz MD PhD LAB MICROBIOLO GY - GENERAL ORDERABLES Final Result Performing Organization Address [facility] Co de Phone Number [facility] [place] [address] * (ABNORMAL) Vitamin D 25 hydroxy (08/23/2025 3:40 PM CDT) Pathologist [facility] Vitamin D 25-OH 16(L) 30 - 80 ng/mL Blood 08/23/2025 3:40 PM CDT 08/23/2025 4:28 PM CDT us Amparo Ambriz MD PhD LAB BLOOD ORDE RABLES Final Result Performing Organization Address [facility] de Phone Number [facility] [place] [address] * Hepatitis B surface antibody (immune status) Blood (08/23/2025 3:40 PM CDT) Pathologist [facility] HBsAb (immune status) Nonreactive Comment:This result is consi stent with a lack of immunity to Hepatitis B Virus when used in the setting of routine screening. Current interpretative data was last revised on 22 Blood 08/23/2025 3:40 PM CDT 08/23/2025 4:28 PM CDT us Amparo Ambriz MD PhD LAB MICROBIOLO GY - GENERAL ORDERABLES Final Result Performing Organization Address [facility] Co de Phone Number [facility] [place] [address] * Hepatitis B Surface Antigen Blood (08/23/2025 3:40 PM CDT) Pathologist [facility] HepBsAg Nonreactive Nonreactive Blood 08/23/2025 3:40 PM CDT 08/23/2025 4:28 PM CDT us Amparo Ambriz MD PhD LAB MICROBIOLO GY - GENERAL ORDERABLES Final Result Performing Organization Address [facility] Co de Phone Number [facility] [place] [address] * (ABNORMAL) Erythrocyte sedimentation rate (08/23/2025 3:40 PM CDT) Erythrocyte sedimentation rate 22(H) 1 - 15 mm/hr Blood 08/23/2025 3:40 PM CDT 08/23/2025 4:28 PM CDT us Amparo Ambriz MD PhD LAB BLOOD ORDE RABELOISA Final Result Performing Organization Address [facility] Co de Phone Number [facility] Department [place] [address] * (ABNORMAL) CRP (acute phase) (08/23/2025 3:40 PM CDT) CRP 10.5(H) <=10.0 mg/L Blood 08/23/2025 3:40 PM CDT 08/23/2025 4:28 PM CDT Amparo Ambriz MD PhD LAB BLOOD ORDE RABELOISA Final Result Performing Organization Address City/[facility] Co de Phone Number [facility] [place] [address] * Ferritin (08/23/2025 3:40 PM CDT) Ferritin 107 30 - 400 ng/mL Blood 08/23/2025 3:40 PM CDT 08/23/2025 4:28 PM CDT us Amparo Ambriz MD PhD LAB BLOOD ORDE LEIGH ANN Final Result [facility] Department [place] [address] * Vitamin B12 (08/23/2025 3:40 PM CDT) [facility] Vitamin B12 372 230 - 1,250 pg/mL Blood 08/23/2025 3:40 PM CDT 08/23/2025 4:28 PM CDT Amparo Ambriz MD PhD LAB BLOOD ORDE LEIGH ANN Final Result Performing Organization Address [facility] Co de Phone Number [facility] Department [place] [address] * (ABNORMAL) Comprehensive metabolic panel (08/23/2025 3:40 PM CDT) [facility] Sodium 139 135 - 145 mmol/L Potassium, pl 4.2 3.3 - 4.9 mmol/L [facility] Chloride 103 97 - 110 mmol/L [facility] CO2 18(L) 22 - 32 mmol/L [facility] Anion gap 18(H) 2 - 15 mmol/L [facility] BUN 11 6 - 25 mg/dL [facility] Creatinine 1.02 0.80 - 1.30 mg/dL [facility] Glucose 80 70 - 199 mg/dL [facility] Comment: Interpretive Data Fasting glucose >/= [...] classification and Diagnosis of Diabetes Diabetes Care 2021; 46: S19-S40. Current interpretive data was last revised 2022. Calcium 8.7 8.5 - 10.3 mg/dL [facility] Bilirubin, total 0.3 0.1 - 1.2 mg/dL [facility] Protein, pl 7.4 6.5 - 8.5 g/dL [facility] Albumin 3.6 3.5 - 5.0 g/dL [facility] Alk phos 86 40 - 130 Units/L [facility] ALT 41 7 - 55 Units/L [facility] AST 37 10 - 50 Units/L [facility] Blood 08/23/2025 3:40 PM CDT 08/23/2025 4:28 PM CDT us Amparo Ambriz MD PhD LAB BLOOD SAMMY BELTRÁN Final Result [facility] Department [place] [address] from Last 3 Months Insurance [employer] ACCESS CHOICE [employer] ACCESS CHOICE Care Teams Framing And Hanging Relationship Specialty Start Date End Date Sanford Harvey MD [address] [place] [address] PCP - General Family Medicine 08/23/25
--- OUTSIDE RECORDS SUMMARY | 2025-08-24 16:01 | XMS_ITS | Clinical Summary ---
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 Gender Identity Not on file Sexual Orientation [...] st Contact Info) Description 10/22/2025 3:00 PM ACCOUNT ANALYST Office Visit [facility] Oncology and Hematology - [place] [address] [facility] [address] [place] [address] Jerome Marcial MD [address] [facility] [address] [place] [address] Health Maintenance Due Date Last Done Comments Pre-Diabetes and Diabetes Screening 1981 DTAP/TDAP/TD VACCINES (1 - Tdap) 2000 HEPATITIS B VACCINES (1 of 3 - 19+ 3-dose series) 06/2000 HPV VACCINES (1 - 3-dose SCDM series) 2008 INFLUENZA VACCINE (#1) 2025 Insurance [employer] BLUE ACCESS CHOICE RX [employer] Advance Directives For more information, please contact: [phone] * Full Code (Latest Code Status on File) Date Activated Date Inactivated Comments 03/14/2025 8:12 AM 03/16/2025 1:42 PM * Default Full Code - Needs Discussion Date Activated Date Inactivated Comments 03/14/2025 2:30 AM 03/14/2025 8:11 AM Care Teams Physiatrist Relationship Specialty Start Date End Date Sanford Harvey MD [address] [place] [phone] PCP - General Family Practice 03/14/25
== END 2025-08-24 15:57 | disposition home or self-care (01) ==
PROVIDERS: PCP Emergency Medicine; Visit Provider Emergency Medicine
DX: I82.402 Acute embolism and thrombosis of unspecified deep veins of left lower extremity (principal)
CPT/HCPCS: 93970

== ENCOUNTER 2025-10-15 17:42 | Inpatient (IN) | payer BC, SELFPAY ==
--- NOTE | ~2025-10-15 | US_ITS ---
EXAMINATION: US venous doppler [facility] DATE: 10/15/2025 18:16 INDICATION: Left lower extremity swelling and pain. Previous history of DVT. TECHNIQUE: Grayscale ultrasound images without and with compression and Doppler ultrasound images of the left lower extremity veins were obtained. COMPARISON: Venous Doppler study of 08/24/2025. FINDINGS: The left common femoral, profunda are free of thrombosis. Thrombus is noted again in the femoral and popliteal veins consistent with prior finding. Thrombus of the gastrocnemius vein in the calf is also noted. IMPRESSION: 1. Persistent DVT in the femoral and popliteal veins of the left lower extremity. Thrombus of the gastrocnemius vein also is noted. Reviewed, dictated and finalized at location T. CHUTE MARKER IMPRESSION: 1. Persistent DVT in the femoral and popliteal veins of the left lower extremi ty. Thrombus of the gastrocnemius vein also is noted.
[2025-10-15 17:44] VITALS: BP 125/83; PULSE 98; RESP 16; TEMP 36.5; O2SAT 99
--- NOTE | 2025-10-15 18:23 | ED.EXTPRO ---
HPI - Extremity Problem General Chief complaint: Extremity Problem,Nontraumatic <Whitley Palm PA-C - Last Filed: 10/16/25 09:42> Stated complaint: swelling L leg <Whitley Palm PA-C - Last Filed: 10/16/25 09:42> Time Seen by Provider: 10/15/25 18:23 <Whitley Palm PA-C - Last Filed: 10/16/25 09:42> Focused HPI: This is a 45 year old male that presents to the ER for left lower extremity swelling. Reports history of DVT and PE. Reports he was seen here last month and showed continued chronic DVT. Reports he was recently started on Remicade. He has had worsening of his symptoms since starting this medication. Reporting very frequent, bloody diarrhea. Denies chest pain or shortness of breath. GENERAL: Uncomfortable, well-nourished, and in no acute distress. HEAD: Normocephalic, atraumatic. CHEST: Clear to auscultation. ?No respiratory distress. HEART: Regular rate and rhythm.? NEURO: ?Alert and oriented x3. Patient screened in triage and initial orders placed.? ?Additional care and disposition to be based upon?diagnostic testing and treatment. <Whitley Palm PA-C - Last Filed: 10/16/25 09:42> Focused HPI: This is a 45 year old male that presents to the ER for left lower extremity swelling. Reports history of DVT and PE. Reports he was seen here last month and showed continued chronic DVT. Reports he was recently started on Remicade by his GI. He has had worsening of his symptoms since starting this medication. Reporting very frequent, bloody diarrhea, no pain, nausea, or vomiting. Worsening leg swelling on the left side which brought him in. Has not missed any dosages of his Eliquis. No other medication changes recently. Has had serial CTs and ultrasounds since his initial diagnosis in February with persistent DVT in his leg. Has not had anybody switch him on different anticoagulants or other therapies. Has an appointment with Hematology-Oncology Dr. Marcial next Wednesday. Denies chest pain or shortness of breath. Has had CTA resolution of PEs. GENERAL: Uncomfortable, well-nourished, and in no acute distress. HEAD: Normocephalic, atraumatic. CHEST: Clear to auscultation. ?No respiratory distress. HEART: Regular rate and rhythm.? NEURO: ?Alert and oriented x3. Patient screened in triage and initial orders placed.? ?Additional care and disposition to be based upon?diagnostic testing and treatment. <Reji Wolf MD - Last Filed: 10/16/25 01:13> History of Present Illness HPI Narrative: agree with the HPI above <Reji Wolf MD - Last Filed: 10/16/25 01:13> Related Data Allergies/Adverse reactions: Allergies Allergy/AdvReac Type Severity Reaction Status Date / Time No Known Allergies Allergy Verified 10/16/25 00:26 <Whitley Palm PA-C - Last Filed: 10/16/25 09:42> Review of Systems Review of Systems: as reviewed above in the HPI <Reji Wolf MD - Last Filed: 10/16/25 01:13> All systems reviewed & are unremarkable except as noted in HPI and below <Reji Wolf MD - Last Filed: 10/16/25 01:13> [facility] Past Medical History Medical History: Medical History (Updated 10/16/25 @ 09:42 by Whitley Palm PA-C) Ulcerative pancolitis Leg edema, left Chronic diarrhea Colitis Weight loss Nausea and vomiting in adult <Whitley Palm PA-C - Last Filed: 10/16/25 09:42> Family History Family History: Family History (Updated 10/16/25 @ 00:19 by Janna Jacobs RN) Grandparent Colon cancer Other Colon cancer Mother Chronic obstructive pulmonary disease <Whitley Palm PA-C - Last Filed: 10/16/25 09:42> Social History Social History: Social History Smoking status: Never smoker Alcohol intake: never Substance use: never Substance use type: does not use Lack of Transportation: No Lack of Food: Never True Current Housing: I Have Housing Concerned About Future Housing: No Difficulty Paying Gas/Electric Bills: No Difficulty Paying for Meds: No Currently Unemployed: No Education: Associate Degree Difficulty w/ Childcare or Family Care: No Living arrangements: with family Additional 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 Mucous membranes moist. NECK: Supple. CHEST: [Clear to auscultation. No respiratory distress.] HEART: [Regular rate and rhythm]. No murmur heard. [Normal peripheral pulses.] ABDOMEN: [Soft, nondistended], [nontender], [No rigidity or guarding] EXTREMITIES: Left lower extremity with pitting edema 1+, prominent vessels but 2+ pulses and warm extremity. Full range of motion. No discoloration. SKIN: Warm, dry, no rash. NEURO: [No focal deficits]. Alert and oriented [x3.] PSYCH: [Normal mood and affect.] <Reji Wolf MD - Last Filed: 10/16/25 01:13> Course Vital Signs Vital signs: Vital Signs Temperature 97.7 F 10/15/25 17:44 Pulse Rate 98 10/15/25 17:44 Respiratory Rate 16 10/15/25 17:44 Blood Pressure 125/83 10/15/25 17:44 Pulse Oximetry 99 10/15/25 17:44 Oxygen Delivery Room Air 10/15/25 17:44 Temperature 98.2 F 10/16/25 05:53 Pulse Rate 75 10/16/25 05:53 Respiratory Rate 18 10/16/25 05:53 Blood Pressure 113/72 10/16/25 05:53 Pulse Oximetry 99 10/16/25 05:53 Oxygen Delivery Room Air 10/15/25 17:44 <Whitley Palm PA-C - Last Filed: 10/16/25 09:42> Vital Signs Temperature 97.7 F 10/15/25 17:44 Pulse Rate 98 10/15/25 17:44 Respiratory Rate 16 10/15/25 17:44 Blood Pressure 125/83 10/15/25 17:44 Pulse Oximetry 99 10/15/25 17:44 Oxygen Delivery Room Air 10/15/25 17:44 Temperature 98.2 F 10/16/25 05:53 Pulse Rate 75 10/16/25 05:53 Respiratory Rate 18 10/16/25 05:53 Blood Pressure 113/72 10/16/25 05:53 Pulse Oximetry 99 10/16/25 05:53 Oxygen Delivery Room Air 10/15/25 17:44 <Reji Wolf MD - Last Filed: 10/16/25 01:13> MDM - Extremity (Nontraumatic) MDM Narrative Medical decision making narrative: 45 year old male that presents to the ER for left lower extremity swelling. Reports history of DVT and PE. Reports he was seen here last month and showed continued chronic DVT. Reports he was recently started on Remicade by his GI. He has had worsening of his symptoms since starting this medication. Reporting very frequent, bloody diarrhea, no pain, nausea, or vomiting. Worsening leg swelling on the left side which brought him in. Has not missed any dosages of his Eliquis. No other medication changes recently. Has had serial CTs and ultrasounds since his initial diagnosis in February with persistent DVT in his leg. Has not had anybody switch him on different anticoagulants or other therapies. Has an appointment with Hematology-Oncology Dr. Marcial next Wednesday. Denies chest pain or shortness of breath. Has had CTA resolution of PEs. Left lower extremity with pitting edema 1+, prominent vessels but 2+ pulses and warm extremity. Full range of motion. No discoloration. Patient is hemodynamically stable with normal vital signs. No tachycardia, fever, hypoxemia. Does have evidence of persistent DVT on his left lower extremity which is been an issue for him. No previous attempts at different anticoagulants but he is interested in trying something. Ultrasound obtained shows persistent DVT with possible new gastrocnemius vein DVT. Was previously seen on ultrasound in February but interval ultrasound in august did not comment on 1 so unclear if this is an old DVT or new DVT. He has a soft nontender nondistended abdomen. Stool samples were sent in triage. Will discuss with hospitalist for admission, anticoagulation management and further workup as needed. Patient started on antibiotics for his C diff that was positive. Admitted to the hospitalist service for further care. Dr. Hopen accepting. <Reji Wolf MD - Last Filed: 10/16/25 01:13> Lab Data Result diagrams: 10/16/25 05:29 10/16/25 05:28 <Whitley Palm PA-C - Last Filed: 10/16/25 09:42> Labs: Lab Results 10/15/25 10/15/25 Range/Units 18:43 20:29 WBC 5.9 (4.5-10.0) K/mm3 RBC 4.16 L (4.6-6.20) M/mm3 Hgb 12.1 L (14.0-18.0) g/dL Hct 38.4 L (42.0-52.0) % MCV 92.3 (80-100) fl MCH 29.1 (26-34) pg MCHC 31.5 L (32-36) g/dl RDW 13.9 (11.5-14.5) % Plt Count 234 (150-375) k/mm3 MPV 8.9 (7.4-10.4) fl Immature Gran % (Auto) 0.3 (0-0.5) % Neut % (Auto) 79.8 H (45.5-73.1) % Lymph % (Auto) 10.7 L (18.3-44.2) % Wilkinson % (Auto) 6.3 (2.6-8.5) % Eos % (Auto) 2.2 (0-4.4) % Baso % (Auto) 0.7 (0.2-1.2) % Lymph # (Auto) 0.63 L (0.9-3.2) K/mm3 Wilkinson # (Auto) 0.4 (0.1-0.6) K/mm3 Eos # (Auto) 0.1 (0-0.3) K/mm3 Baso # (Auto) 0.0 (0.0-0.1) K/mm3 Abs Immat Gran (auto) 0.02 (0.00-0.031) K/mm3 Absolute Neuts (auto) 4.7 (1.3-6.7) K/mm3 Absolute Nucleated RBC 0.000 (0.0-0.012) K/mm3 Nucleated RBC % 0.0 (0.0-0.2) % PT 15.0 H (11.1-14.7) Seconds INR 1.2 APTT 33.0 (22.3-36.8) Seconds Sodium 138 (137-145) mmol/L Potassium 3.6 (3.4-5.0) mmol/L Chloride 106 (98-107) mmol/L Carbon Dioxide 29 (22-30) mmol/L Anion Gap 3 L (4-12) mmol/L BUN 8 L (9-20) mg/dL Creatinine 0.79 (0.7-1.3) mg/dL Estim Creat Clear Calc 107 ml/min Estimated GFR > 60 (59 - ) Glucose 106 (65-110) mg/dL Calcium 8.5 (8.4-10.2) mg/dL Total Bilirubin 0.3 (0.2-1.3) mg/dL AST 16 L (17-59) U/L ALT 13 (6-50) U/L Alkaline Phosphatase 63 (38-126) U/L Total Protein 6.6 (6.3-8.2) g/dL Albumin 3.3 L (3.5-5.1) g/dL C. difficile (PCR) Positive A* (NEGATIVE) C. difficile Ag & Toxin Negative (Negative) C. difficile GDH Ag Positive A (Negative) Blood Type O Positive Antibody Screen Negative <Whitley Palm PA-C - Last Filed: 10/16/25 09:42> Lab Results 10/15/25 10/15/25 Range/Units 18:43 20:29 WBC 5.9 (4.5-10.0) K/mm3 RBC 4.16 L (4.6-6.20) M/mm3 Hgb 12.1 L (14.0-18.0) g/dL Hct 38.4 L (42.0-52.0) % MCV 92.3 (80-100) fl MCH 29.1 (26-34) pg MCHC 31.5 L (32-36) g/dl RDW 13.9 (11.5-14.5) % Plt Count 234 (150-375) k/mm3 MPV 8.9 (7.4-10.4) fl Immature Gran % (Auto) 0.3 (0-0.5) % Neut % (Auto) 79.8 H (45.5-73.1) % Lymph % (Auto) 10.7 L (18.3-44.2) % Wilkinson % (Auto) 6.3 (2.6-8.5) % Eos % (Auto) 2.2 (0-4.4) % Baso % (Auto) 0.7 (0.2-1.2) % Lymph # (Auto) 0.63 L (0.9-3.2) K/mm3 Wilkinson # (Auto) 0.4 (0.1-0.6) K/mm3 Eos # (Auto) 0.1 (0-0.3) K/mm3 Baso # (Auto) 0.0 (0.0-0.1) K/mm3 Abs Immat Gran (auto) 0.02 (0.00-0.031) K/mm3 Absolute Neuts (auto) 4.7 (1.3-6.7) K/mm3 Absolute Nucleated RBC 0.000 (0.0-0.012) K/mm3 Nucleated RBC % 0.0 (0.0-0.2) % PT 15.0 H (11.1-14.7) Seconds INR 1.2 APTT 33.0 (22.3-36.8) Seconds Sodium 138 (137-145) mmol/L Potassium 3.6 (3.4-5.0) mmol/L Chloride 106 (98-107) mmol/L Carbon Dioxide 29 (22-30) mmol/L Anion Gap 3 L (4-12) mmol/L BUN 8 L (9-20) mg/dL Creatinine 0.79 (0.7-1.3) mg/dL Estim Creat Clear Calc 107 ml/min Estimated GFR > 60 (59 - ) Glucose 106 (65-110) mg/dL Calcium 8.5 (8.4-10.2) mg/dL Total Bilirubin 0.3 (0.2-1.3) mg/dL AST 16 L (17-59) U/L ALT 13 (6-50) U/L Alkaline Phosphatase 63 (38-126) U/L Total Protein 6.6 (6.3-8.2) g/dL Albumin 3.3 L (3.5-5.1) g/dL C. difficile (PCR) Positive A* (NEGATIVE) C. difficile Ag & Toxin Negative (Negative) C. difficile GDH Ag Positive A (Negative) Blood Type O Positive Antibody Screen Negative <Reji Wolf MD - Last Filed: 10/16/25 01:13> Imaging Data Radiologist's impression: ITS Impressions Venous Doppler Study 10/15/25 18:23 IMPRESSION: 1. Persistent DVT in the femoral and popliteal veins of the left lower extremity. Thrombus of the gastrocnemius vein also is noted. <Whitley Palm PA-C - Last Filed: 10/16/25 09:42> Discharge Plan Discharge Clinical Impression: C. difficile diarrhea, Leg edema, left DVT, lower extremity Qualifiers: Affected thrombotic vein of extremity: femoral Chronicity: acute Laterality: left Qualified Code(s): I82.412 - Acute embolism and thrombosis of left femoral vein <Whitley Palm PA-C - Last Filed: 10/16/25 09:42> Patient Disposition: Still a Patient <Whitley Palm PA-C - Last Filed: 10/16/25 09:42> Condition: Stable <Whitley Palm PA-C - Last Filed: 10/16/25 09:42> Time of Disposition: 01:13 <Whitley Palm PA-C - Last Filed: 10/16/25 09:42> 01:13 <Reji Wolf MD - Last Filed: 10/16/25 01:13>
--- OUTSIDE RECORDS SUMMARY | 2025-10-15 18:40 | XMS_ITS | Encounter Summary ---
Author Organization [facility] Healthcare Address [address] [place] [address] Care Team Providers Care [employer] Floorperson Name Role Phone Sanford Harvey MD Primary Care Provider [phone] Sriram Guerrero [facility] Unavailable Unavaila Amparo Figueredo MD PhD Unavailable Encounter Details Date Type Department Care Team (Late st Contact Info) Description 10/09/2025 Home Infusion [facility] Home Infusion Therapy [address] [place] [address] Sriram Guerrero, [facility] Ulcerative chronic pancolitis with rectal bleeding (HCC) Social History Tobacco Use Types Packs/Day Years Used Date Smoking Tobacco: Never Passive Smoke Exposure: Never Smokeless Tobacco: Never Sex and Gender Information Value Date Recorded Sex Assigned at Not on file Legal Sex Male 1:22 AM [employer] Gender Identity Not on file Sexual Orientation Not on file documented as of this encounter Ordered Prescriptions Prescription Sig Dispense Quantity Refills Last Filled Start Date End Date inFLIXimab (REMICADE) 100 mg injectionIndicati ons:Ulcerative chronic pancolitis with rectal bleeding (HCC) Reconstitute each vial with 10 mL sodium chloride 0.9% for injection. Once reconstituted, draw up 500 mg (50 ml) and add to sodium chloride 0.9% for injection (bag). Infuse with 1.2 micron filter via pole mounted pump. Begin infusion within 4 hours of mixing. Infuse EVERY 8 WEEKS. Infusion directions: Initiate at 10ml/hr x 15 minutes(3ml); then Increase to 20ml/hr x 15 min(5ml); then Increase to 40ml/hr x 15 min(10ml); then increase to 80ml/hr x 15 min(20ml); then increase to 150ml/hr x 30 min (75ml); then increase to 250ml/hr x 30 minutes until infusion is completed (137ml) 30 each 10/09/2025 6 0.9 % sodium chloride (sodium chloride 0.9%) infusionIndicatio ns:Ulcerative chronic pancolitis with rectal bleeding (HCC) Infuse 250 mL IV every 8 (eight) weeks Use as IVPB bag for inFLIXimab infusion Initiate at 10ml/hr x 15 minutes(3ml); then Increase to 20ml/hr x 15 min(5ml); then Increase to 40ml/hr x 15 min(10ml); then increase to 80ml/hr x 15 min(20ml); then increase to 150ml/hr x 30 min (75ml); then increase to 250ml/hr x 30 minutes until infusion is completed (137ml) 1500 mL 10/09/2025 6 documented in this encounter Plan of Treatment Not on file documented as of this encounter Visit Diagnoses Diagnosis Ulcerative chronic pancolitis with rectal bleeding (HCC) documented in this encounter Discontinued Medications Medication Sig Discontinue Reason Start Date End Da te inFLIXimab (REMICADE) 100 mg injectionIndications: Ulcerative chronic pancolitis with rectal bleeding (HCC) Reconstitute each vial with 10 mL sodium chloride 0.9% for injection. Once reconstituted, draw up 500 mg (50 ml) and add to sodium chloride 0.9% for injection (bag). Infuse with 1.2 micron filter via pole mounted pump. Begin infusion within 4 hours of mixing. Infusion directions: Initiate at 10ml/hr x 15 minutes(3ml); then Increase to 20ml/hr x 15 min(5ml); then Increase to 40ml/hr x 15 min(10ml); then increase to 80ml/hr x 15 min(20ml); then increase to 150ml/hr x 30 min (75ml); then increase to 250ml/hr x 30 minutes until infusion is completed (137ml) Reorder 09/19/2025 10/09/2025 0.9 % sodium chloride (sodium chloride 0.9%) infusionIndications:U lcerative chronic pancolitis with rectal bleeding (HCC) Infuse 250 mL IV every 2 (two) weeks Use as IVPB bag for inFLIXimab infusion Initiate at 10ml/hr x 15 minutes(3ml); then Increase to 20ml/hr x 15 min(5ml); then Increase to 40ml/hr x 15 min(10ml); then increase to 80ml/hr x 15 min(20ml); then increase to 150ml/hr x 30 min (75ml); then increase to 250ml/hr x 30 minutes until infusion is completed (137ml) Reorder 09/19/2025 10/09/2025 documented as of this encounter Care Teams [employer] Floor[employer] Relationship Specialty Start Date End Date Sanford Harvey MD [address] [address] PCP - General Family Medicine 08/23/25 Amparo Ambriz MD PhD [address] [facility] [address] DIV IM GASTROENTEROLOGY [place] [address] PCP - Home Infusion Attending Internal Medicine 09/24/25 Sriram Guerrero, [facility] Pharmacist Pharmacy 09/19/25 documented as of this encounter
--- OUTSIDE RECORDS SUMMARY | 2025-10-15 18:40 | XMS_ITS ---
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
--- OUTSIDE RECORDS SUMMARY | 2025-10-15 18:40 | XMS_ITS | Clinical Summary ---
Author Organization [facility] Address [address] [place] [id number] Care Team Providers Care Medical Technologist Prn Name Role Phone Sanford Harvey MD Primary Care Provider [phone] Sriram Guerrero [facility] Unavailable Unavaila Amparo Figueredo MD PhD Unavailable Allergies No known active allergies Medications budesonide EC (ENTOCORT EC) 3 mg 24 hr capsule Take 3 capsules (9 mg total) by mouth daily Active mesalamine (LIALDA) 1.2 gram EC tablet Take 1 tablet (1.2 g total) by mouth daily Active hyoscyamine (LEVSIN) 0.125 mg SL tablet Take 1 tablet (0.125 mg total) by mouth every 4 (four) hours as needed 07/15/20 25 Active diphenoxylate- atropine (LOMOTIL) 2.5-0.025 mg per tabletIndicati ons:diarrhea Take 1 tablet by mouth 3 times a day Active Eliquis 5 mg tablet Take 1 tablet (5 mg total) by mouth 2 (two) times a day 07/17/20 25 Active loperamide (IMODIUM A-D) 2 mg tablet Take 1 tablet (2 mg total) by mouth every 4 (four) hours as needed Active pantoprazole DR (PROTONIX) 40 mg EC tablet Take 1 tablet (40 mg total) by mouth 2 (two) times a day 06/26/20 25 Active traMADoL (ULTRAM) 50 mg tablet Take 1 tablet (50 mg total) by mouth every 6 (six) hours as needed Active mesalamine (CANASA) 1,000 mg suppositoryInd ications:Ulcer ative Proctitis Insert 1 suppository (1,000 mg total) into the rectum nightly Use as directed 30 suppository 11 08/23/20 Active cholecalcifero l (VITAMIN D-3) 25 mcg (1,000 unit) tabletIndicati ons:Vitamin D Deficiency Take 1 tablet (1,000 Units total) by mouth daily 30 tablet 5 08/27/20 25 Active ferrous sulfate 325 mg (65 mg of elemental iron) tabletIndicati ons:Iron Deficiency Anemia Take 1 tablet (325 mg total) by mouth every other day 15 tablet 2 08/27/20 25 Active sodium chloride 0.9% flush syringeIndicat ions:Ulcerativ e chronic pancolitis with rectal bleeding (HCC) Infuse 10 mL IV as needed for line care 1000 mL 09/19/20 Active acetaminophen (TYLENOL) 325 mg tabletIndicati ons:Ulcerative chronic pancolitis with rectal bleeding (HCC) Take 2 tablets (650 mg total) by mouth as needed for pain Take 30 minutes prior to infusion 16 tablet 5 10:40 AM ADJUNCT MATHEMATICS INSTRUCTOR 09/19/20 Active diphenhydrAMIN E (BENADRYL) 25 mg capsuleIndicat ions:Ulcerativ e chronic pancolitis with rectal bleeding (HCC) Take 1 tablet/capsule (25 mg total) by mouth as needed for itching Take 30 minutes prior to infusion. 8 capsule 5 10:40 AM ADJUNCT MATHEMATICS INSTRUCTOR 09/19/20 Active 0.9 % sodium chloride (sodium chloride 0.9%) infusionIndica tions:Ulcerati ve chronic pancolitis with rectal bleeding (HCC) Infuse [...] until infusion is completed (137ml) 1500 mL 10/09/20 026 Active inFLIXimab (REMICADE) 100 mg injectionIndic ations:Ulcerat elena chronic pancolitis with rectal bleeding (HCC) Reconstitute [...] until infusion is completed (137ml) 30 each 10/09/20 25 Active acetaminophen (TYLENOL) 500 mg tablet Take 1 tablet (500 mg total) by mouth every 4 (four) hours as needed for pain 025 Discontin ued([place] order) inFLIXimab (REMICADE) 100 mg injectionIndic ations:Ulcerat elena chronic pancolitis with rectal bleeding (HCC) Reconstitute [...] 30 minutes until infusion is completed (137ml) 120 each 5 10:40 AM ADJUNCT MATHEMATICS INSTRUCTOR 09/19/20 25 025 Discontin ued(Reord er) 0.9 % sodium chloride (sodium chloride 0.9%) infusionIndica tions:Ulcerati ve chronic pancolitis with rectal bleeding (HCC) Infuse [...] 30 minutes until infusion is completed (137ml) 6000 mL 10:40 AM ADJUNCT MATHEMATICS INSTRUCTOR 09/19/20 25 025 Discontin ued(Reord er) Active Problems Problem Noted Date Diagnosed Date Ulcerative pancolitis with rectal bleeding 08/23 Overview (08/23/2025): Year of diagnosis February 2024 Year symptoms began 2007 Distribution Extensive (E3) Extraintestinal manifestations eczema, Complications C diff Prior surgeries hernia repair Prior treatments Stelara, Budesonide, Hyoscyamine, Loperamide, Lomotil Current treatment Tremfya (started Nov 2024), Lialda, Rowasa enemas (but not able to tolerate) TPMT Assessment & Plan (08/27/2025 10:14 AM CDT): At this point, he has only tried Stelara and Tremfya but continues to have uncontrolled disease (ongoing symptoms, fecal calprotectin in the 1000s). Stelara and Tremfya do have overlapping mechanisms (IL12/23 and IL23) so I think that dual therapy is premature and would prefer at this point to consider him a nonresponder to IL23s and switch him to a different class of medication entirely. He continues to have severe symptoms and a poor quality of life. Given this, we will switch him to infliximab. -For his rectal pain and tenesmus, we will start mesalamine suppositories (he has not been able to tolerate Rowasa enemas) -Check ESR, CRP, fecal calprotectin to get a baseline -Will check nutritional labs today -RTC 3 months High risk medications (not [...] appropriate Preventative Care: Annual skin exam by conservation assistant or other qualified provider if fair skin or taking with azathioprine/mercaptopurine. Wear SPF 30 sunscreen. Annual Pap exam for females. Additional Drug Information is available on the Crohn's and Colitis Foundation Website: [email or web address].org/[email or web address]- medication Plan to switch to infliximab, will check TB and Hepatitis B today Viral pharyngitis 03/21/2015 Overview (02/26/2017): Viral pharyngitis Encounters Date Type Department Care Team Description 10/15/2025 Telephone [facility] Medicine Gastroenterology [address] [place] [address] [place] [address] Desi Landers RN 10/09/2025 Home Infusion [facility] Home Infusion Therapy [address] [place] [address] Sriram Guerrero [facility] Ulcerative chronic pancolitis with rectal bleeding (HCC) 10/08/2025 12:00 PM ADJUNCT MATHEMATICS INSTRUCTOR Home Care Visit [facility] Home Infusion Therapy [address] [place] [address] Janna Brody RN AR INF [address] ROUTINE 09/26/2025 Results Follow-Up [facility] Medicine Gastroenterology [address] [place] [address] [place] [address] Amparo Ambriz MD PhD Comprehensive metabolic panel, without glucose (Outreach), Glucose, random (Outreach), CBC with auto differential, Additional followed-up results: 3 09/24/2025 2:00 PM ADJUNCT MATHEMATICS INSTRUCTOR - 09/24/2025 11:59 PM ADJUNCT MATHEMATICS INSTRUCTOR Hospital Encounter [facility] [address] [place] [address] Discharge Disposition: Discharge to home or self care 09/24/2025 12:00 PM ADJUNCT MATHEMATICS INSTRUCTOR Home Care Visit [facility] Home Infusion Therapy [address] [place] [address] Janna Brody RN AR INF [address] INITIAL 09/21/2025 Home Infusion [facility] Home Infusion Therapy [address] [place] [address] Marta Santos 09/20/2025 Plan of Care Documentation [facility] Home Infusion Therapy [address] [place] [address] 09/06/2025 11:00 AM CDT Office Visit [facility] Medicine Cardiology [address] [place] [address] Racquel Henderson MD Left without seen 09/06/2025 Home Infusion [facility] Home Infusion Therapy [address] [place] [address] Sriram Guerrero, [facility] Ulcerative chronic pancolitis with rectal bleeding (HCC) (Primary Dx) 08/29/2025 Telephone [facility] Medicine Gastroenterology [address] [place] [address] [place] [address] Carrie Funez, MARTY Med Management new start IFX 08/27/2025 Results Follow-Up Gastroententerolo gy Amparo Ambriz MD PhD Iron profile w/ IBC, Ferritin, Vitamin B12, Additional followed-up results: 12 08/23/2025 4:35 PM CDT Lab [facility]) [address] [place] [address] Ulcerative pancolitis with rectal bleeding (HCC); High risk medications (not anticoagulants) long-term use 08/23/2025 2:00 PM CDT Office Visit [facility] Gastroenterology [address] [place] [address] [place] [address] Amparo Ambriz MD PhD Ulcerative pancolitis with rectal bleeding (HCC) (Primary Dx); High risk medications (not anticoagulants) long-term use 08/10/2025 Telephone [facility] Cardiology [address] [place] [address] [place] [address] Coco Wagner from Last 3 Months Family [...] on file Legal Sex Male 1:22 AM ADJUNCT MATHEMATICS INSTRUCTOR Gender Identity Not on file Sexual Orientation Not on file Last Filed Vital Signs Vital Sign Reading Time Taken Comments Blood Pressure 108/68 10/08/2025 3:35 PM ADJUNCT MATHEMATICS INSTRUCTOR Pulse 72 10/08/2025 3:35 PM ADJUNCT MATHEMATICS INSTRUCTOR Temperature 36.6 C (97.8 F) 10/08/2025 3:35 PM ADJUNCT MATHEMATICS INSTRUCTOR Respiratory Rate 16 10/08/2025 3:35 PM ADJUNCT MATHEMATICS INSTRUCTOR Oxygen Saturation 100% 10/08/2025 3:35 PM ADJUNCT MATHEMATICS INSTRUCTOR Inhaled Oxygen Concentration - - Weight 84.8 kg (187 lb) 10/08/2025 12:25 PM ADJUNCT MATHEMATICS INSTRUCTOR Height 177.8 cm (5' 10) 10/08/2025 12:25 PM ADJUNCT MATHEMATICS INSTRUCTOR Body Mass Index 26.83 10/08/2025 12:25 PM ADJUNCT MATHEMATICS INSTRUCTOR Plan of Treatment Health Maintenance Due Date Last Done Comments Depression Screening 1981 Hepatitis C Screening 1981 Varicella Vaccines (1 of 2 - 13+ 2-dose series) 1994 Regular Well Visit/Exam 18-64 1999 Pneumococcal vaccine <65 (1 of 2 - PCV) 2000 Zoster Vaccine (1 of 2) 2000 HPV Vaccines (1 - 3-dose SCD M series) 2008 Covid-19 Vaccine (2024-2 6 season) 2026 08/16/2025, 09/11/2024, 10/03/2021, Additional history exists DTaP/Tdap/Td Vaccine (2 - Td or Tdap) 09/03/2031 09/03/2021, 06/28/2008 Influenza Vaccine Completed 08/16/2025, , 09/02/2022, Additional history exists Hepatitis B Screening Completed 08/23/2025 Procedures Procedure Name Priority Date/Time Associated Diagnosis Comments EGFR Routine 09/24/2025 2:00 PM ADJUNCT MATHEMATICS INSTRUCTOR DIFFERENTIAL AUTO Routine 09/24/2025 2:0 0 PM ADJUNCT MATHEMATICS INSTRUCTOR CRP (ACUTE PHASE) Routine 09/24/2025 2:0 0 PM ADJUNCT MATHEMATICS INSTRUCTOR CBC WITH AUTO DIFFERENTIAL Routine 09/24/2025 2:00 PM ADJUNCT MATHEMATICS INSTRUCTOR GLUCOSE, RANDOM (OUTREACH) Routine 09/24/2025 2:00 PM ADJUNCT MATHEMATICS INSTRUCTOR COMPREHENSIVE METABOLIC PANEL WITHOUT GLUCOSE (OUTREACH) Routine 09/24/2025 2:00 PM ADJUNCT MATHEMATICS INSTRUCTOR CALPROTECTIN, FECAL Routine 08/30/2025 1 :23 PM CDT EGFR Routine 08/23/2025 3:40 PM CDT Ulcerative [...] High risk medications (not anticoagulants) long-term use T-SPOT.TB Routine 08/23/2025 3:40 PM CDT Ulcerative pancolitis with rectal bleeding (HCC) High risk medications (not anticoagulants) long-term use from Last 3 Months Results * Glucose, random (Outreach) (09/24/2025 2:00 PM ADJUNCT MATHEMATICS INSTRUCTOR) Glucose 80 70 - 199 mg/dL Comment: Interpretive Data Fasting glucose >/= 126 [...] Current interpretive data was last revised 2022. Blood 09/24/2025 2:00 PM ADJUNCT MATHEMATICS INSTRUCTOR 09/24/2025 6:17 PM ADJUNCT MATHEMATICS INSTRUCTOR us Amparo Ambriz MD PhD LAB BLOOD SAMMY BELTRÁN Final Result [facility] [place] [address] * eGFR (09/24/2025 2:00 PM ADJUNCT MATHEMATICS INSTRUCTOR) eGFR >90 >=60 mL/min/1. 73 m2 Comment: [...] Inclusion of Race in Diagnosing Kidney Disease, JANAESN 2020). The CKD-EPI equation should not be used for patients with unstable renal function and has not been validated in children and those over 70. Current interpretive data was last reviewed 2021. Blood 09/24/2025 2:00 PM ADJUNCT MATHEMATICS INSTRUCTOR 09/24/2025 6:28 PM ADJUNCT MATHEMATICS INSTRUCTOR us Amparo Ambriz MD PhD LAB BLOOD SAMMY BELTRÁN Final Result [facility] [address] [facility] [place] [address] * (ABNORMAL) Differential, auto (09/24/2025 2:00 PM ADJUNCT MATHEMATICS INSTRUCTOR) Neutrophil abs 5.50 1.50 - 6.50 K/cumm Imm gran abs 0.02 0.00 - 0.10 K/cumm [facility] Lymphocyte abs 0.54(L) 0.80 - 3.30 K/cumm [facility] Monocyte abs 0.25 0.20 - 0.80 K/cumm [facility] Eosinophil abs 0.19 0.00 - 0.50 K/cumm [facility] Basophil abs 0.05 0.00 - 0.10 K/cumm [facility] Neutrophil pct 84.0 % [facility] Comment: Interpretive Data Percent cell count reference ranges are not reported, since discordance with absolute values may lead to misinterpretation of CBC data. Current Interpretive Data was last revised on 2018. Imm gran pct 0.3 % [facility] Comment: Interpretive Data Percent cell count reference ranges are not reported, since discordance with absolute values may lead to misinterpretation of CBC data. Current Interpretive Data was last revised on 2018. Lymphocyte pct 8.2 % [facility] Comment: Interpretive Data Percent cell count reference ranges are not reported, since discordance with absolute values may lead to misinterpretation of CBC data. Current Interpretive Data was last revised on 2018. Monocyte pct 3.8 % [facility] Comment: Interpretive Data Percent cell count reference ranges are not reported, since discordance with absolute values may lead to misinterpretation of CBC data. Current Interpretive Data was last revised on 2018. Eosinophil pct 2.9 % [facility] Comment: Interpretive Data Percent cell count reference ranges are not reported, since discordance with absolute values may lead to misinterpretation of CBC data. Current Interpretive Data was last revised on 2018. Basophil pct 0.8 % [facility] Comment: Interpretive Data Percent cell count reference ranges are not reported, since discordance with absolute values may lead to misinterpretation of CBC data. Current Interpretive Data was last revised on 2018. Blood 09/24/2025 2:00 PM ADJUNCT MATHEMATICS INSTRUCTOR 09/24/2025 6:17 PM ADJUNCT MATHEMATICS INSTRUCTOR us Amparo Ambriz MD PhD LAB BLOOD SAMMY BELTRÁN Final Result [facility] [address] [facility] [place] [address] * Comprehensive metabolic panel, without glucose (Outreach) (09/24/2025 2:00 PM ADJUNCT MATHEMATICS INSTRUCTOR) Sodium 143 135 - 145 mmol/L Potassium, pl 3.5 3.3 - 4.9 mmol/L [facility] Chloride 105 97 - 110 mmol/L [facility] CO2 27 22 - 32 mmol/L [facility] Anion gap 11 2 - 15 mmol/L [facility] BUN 6 6 - 25 mg/dL [facility] Creatinine 1.00 0.80 - 1.30 mg/dL [facility] Calcium 8.8 8.5 - 10.3 mg/dL [facility] Protein, pl 7.0 6.5 - 8.5 g/dL [facility] Albumin 3.5 3.5 - 5.0 g/dL [facility] Bilirubin, total 0.3 0.1 - 1.2 mg/dL [facility] Alk phos 69 40 - 130 Units/L [facility] AST 18 10 - 50 Units/L [facility] ALT 12 7 - 55 Units/L [facility] Blood 09/24/2025 2:00 PM ADJUNCT MATHEMATICS INSTRUCTOR 09/24/2025 6:17 PM ADJUNCT MATHEMATICS INSTRUCTOR us Amparo Ambriz MD PhD LAB BLOOD SAMMY BELTRÁN Final Result Performing Organization Address [facility]/ZIP Co de Phone Number [facility] [place] [address] * (ABNORMAL) CBC with auto differential (09/24/2025 2:00 PM ADJUNCT MATHEMATICS INSTRUCTOR) Pathologist [facility] WBC 6.55 3.80 - 9.90 K/cumm Hgb 12.6(L) 13.0 - 17.5 g/dL [facility] Hct 39.1 38.9 - 50.3 % [facility] Plt 219 150 - 400 K/cumm [facility] MPV 10.8 9.1 - 12.3 fL [facility] RBC 4.32 4.30 - 5.80 M/cumm [facility] MCV 90.5 81.3 - 96.4 fL [facility] MCH 29.2 27.1 - 33.3 pg [facility] MCHC 32.2(L) 32.3 - 35.7 g/dL [facility] RDW CV 13.1 11.1 - 14.9 % [facility] RDW SD 43.5 35.7 - 48.1 fL [facility] NRBC abs 0.00 0.00 - 0.01 K/cumm [facility] Blood 09/24/2025 2:00 PM ADJUNCT MATHEMATICS INSTRUCTOR 09/24/2025 6:17 PM ADJUNCT MATHEMATICS INSTRUCTOR us Amparo Ambriz MD PhD LAB BLOOD SAMMY BELTRÁN Final Result Performing Organization Address City/[facility]/ZIP Co de Phone Number [facility] [place] [address] * (ABNORMAL) CRP (acute phase) (09/24/2025 2:00 PM ADJUNCT MATHEMATICS INSTRUCTOR) Pathologist [facility] CRP 12.4(H) <=10.0 mg/L Blood 09/24/2025 2:00 PM ADJUNCT MATHEMATICS INSTRUCTOR 09/24/2025 6:17 PM ADJUNCT MATHEMATICS INSTRUCTOR us Amparo Ambriz MD PhD LAB BLOOD SAMMY BELTRÁN Final Result [facility] [place] [address] * (ABNORMAL) Calprotectin, fecal (08/30/2025 1:23 PM CDT) Calprotectin, Stool 4,460(H) mcg/g [facility]/[place] [facility], Comment: Reference Range: <50 Normal 50-120 Borderline >120 Elevated LIQUID STOOL. Calprotectin in Crohn's disease and ulcerative colitis can be five to several thousand times above the reference population (50 mcg/g or less). Levels are usually 50 mcg/g or less in healthy patients and with irritable bowel syndrome. Repeat testing in 4-6 weeks is suggested for borderline values. 08/30/2025 1:23 PM CDT 08/31/2025 3:37 AM CDT Narrative [facility] - 09/06/2025 6:32 PM CDT INSURANCE ON PHONE FASTING:NO FASTING: NO us Amparo Ambriz MD PhD LAB BODY FLUID S AND STOOLS ORDERABLES Final Result Performing Organization Address City/[facility]/ZIP Co de Phone Number [facility]/[place] [facility], [address] [place] [address] * T-SPOT.TB Blood (08/23/2025 3:40 PM CDT) T-SPOT.TB Negative SeeBelow Comment: Normal Value: Negative A negative test result does not exclude the possibility of exposure to or infection with Mycobacterium tuberculosis (M. tuberculosis). Patients with recent exposure to TB infected individuals exhibiting a negative T-SPOT.TB result should be considered for retesting within 6 weeks or if other relevant clinical symptoms indicate. Results from T-SPOT.TB testing must be used in conjunction with each individual's epidemiological history, current medical status, and results of other diagnostic evaluations. The T-SPOT.TB test is qualitative and results are reported as positive, borderline or negative, given that the test controls perform as expected. In line with the Centers for Disease Control and Prevention's 2010 recommendation to report quantitative measurements alongside the qualitative result, the laboratory provides spot counts for informational purposes only. The T-SPOT.TB test should not be interpreted as a quantitative test. T-SPOT.TB Panel A Spot Count 0 [facility] T-SPOT.TB Panel B Spot Count 0 [facility] T-SPOT.TB Negative Control Passed [facility] T-SPOT.TB Positive Control Passed [facility] Comment: Test Performed at: [facility] [place] [address] BLANCA CONRAD,PHD Blood 08/23/2025 3:40 PM CDT 08/23/2025 4:36 PM CDT Amparo Ambriz MD PhD LAB MICROBIOLO GY - GENERAL ORDERABLES Final Result [facility] [place] [address] * eGFR (08/23/2025 3:40 PM CDT) eGFR >90 >=60 mL/min/1. 73 m2 Comment: [...] PhD LAB BLOOD SAMMY BELTRÁN Final Result [facility] [place] [address] * (ABNORMAL) Differential, auto (08/23/2025 3:40 PM CDT) Neutrophil abs 4.29 1.50 - 6.50 K/cumm Imm gran abs 0.01 0.00 - 0.10 K/cumm [facility] Lymphocyte abs 0.61(L) 0.80 - 3.30 K/cumm [facility] Monocyte abs 0.32 0.20 - 0.80 K/cumm [facility] Eosinophil abs 0.15 0.00 - 0.50 K/cumm [facility] Basophil abs 0.03 0.00 - 0.10 K/cumm [facility] Neutrophil pct 79.2 % [facility] Comment: Interpretive Data Percent cell count reference ranges are not reported, since discordance with absolute values may lead to misinterpretation of CBC data. Current Interpretive Data was last revised on 2018. Imm gran pct 0.2 % [facility] Comment: Interpretive Data Percent cell count reference ranges are not reported, since discordance with absolute values may lead to misinterpretation of CBC data. Current Interpretive Data was last revised on 2018. Lymphocyte pct 11.3 % [facility] Comment: Interpretive Data Percent cell count reference ranges are not reported, since discordance with absolute values may lead to misinterpretation of CBC data. Current Interpretive Data was last revised on 2018. Monocyte pct 5.9 % [facility] Comment: Interpretive Data Percent cell count reference ranges are not reported, since discordance with absolute values may lead to misinterpretation of CBC data. Current Interpretive Data was last revised on 2018. Eosinophil pct 2.8 % [facility] Comment: Interpretive Data Percent cell count reference ranges are not reported, since discordance with absolute values may lead to misinterpretation of CBC data. Current Interpretive Data was last revised on 2018. Basophil pct 0.6 % [facility] Comment: Interpretive Data Percent cell count reference ranges are not reported, since discordance with absolute values may lead to misinterpretation of CBC data. Current Interpretive Data was last revised on 2018. Blood 08/23/2025 3:40 PM CDT 08/23/2025 4:28 PM CDT Amparo Ambriz MD PhD LAB BLOOD ORDRoseline BELTRÁN Final Result Performing Organization Address [facility]/ZIP Co de Phone Number [facility] [place] [address] * (ABNORMAL) Iron profile w/ IBC (08/23/2025 3:40 PM CDT) Iron 34(L) 50 - 150 mcg/dL TIBC 221(L) 250 - 400 mcg/dL [facility] Transferrin saturation 15(L) 20 - 50 % [facility] Blood 08/23/2025 3:40 PM CDT 08/23/2025 4:28 PM CDT Amparo Ambriz MD PhD LAB BLOOD ORDRoseline BELTRÁN Final Result [facility] [place] [address] * (ABNORMAL) CBC with auto differential (08/23/2025 3:40 PM CDT) WBC 5.41 3.80 - 9.90 K/cumm Hgb 12.3(L) 13.0 - 17.5 g/dL [facility] Hct 39.2 38.9 - 50.3 % [facility] Plt 291 150 - 400 K/cumm [facility] MPV 9.6 9.1 - 12.3 fL [facility] RBC 4.36 4.30 - 5.80 M/cumm [facility] MCV 89.9 81.3 - 96.4 fL [facility] MCH 28.2 27.1 - 33.3 pg [facility] MCHC 31.4(L) 32.3 - 35.7 g/dL [facility] RDW CV 12.8 11.1 - 14.9 % [facility] RDW SD 42.0 35.7 - 48.1 fL [facility] NRBC abs 0.00 0.00 - 0.01 K/cumm [facility] Blood 08/23/2025 3:40 PM CDT 08/23/2025 4:28 PM CDT us Amparo Ambriz MD PhD LAB BLOOD ORDE RABLES Final Result [facility] [place] [address] * Hepatitis B core antibody, total Blood (08/23/2025 3:40 PM CDT) [facility] Hep B core IgG/IgM Nonreactive Nonreactive Blood 08/23/2025 3:40 PM CDT 08/23/2025 4:28 PM CDT us Amparo Ambriz MD PhD LAB MICROBIOLO GY - GENERAL ORDERABLES Final Result [facility] [place] [address] * (ABNORMAL) Vitamin D 25 hydroxy (08/23/2025 3:40 PM CDT) Pathologist [facility] Vitamin D 25-OH 16(L) 30 - 80 ng/mL Blood 08/23/2025 3:40 PM CDT 08/23/2025 4:28 PM CDT us Amparo Ambriz MD PhD LAB BLOOD SAMMY BELTRÁN Final Result [facility] [place] [address] * Hepatitis B surface antibody (immune status) Blood (08/23/2025 3:40 PM CDT) HBsAb (immune status) Nonreactive Comment:This result is consi stent with a lack of immunity to Hepatitis B Virus when used in the setting of routine screening. Current interpretative data was last revised on 22 Blood 08/23/2025 3:40 PM CDT 08/23/2025 4:28 PM CDT us Amparo Ambriz MD PhD LAB MICROBIOLO GY - GENERAL ORDERABLES Final Result Performing Organization Address City/[facility]/ZIP Co de Phone Number [facility] [place] [address] * Hepatitis B Surface Antigen Blood (08/23/2025 3:40 PM CDT) Pathologist [facility] HepBsAg Nonreactive Nonreactive Blood 08/23/2025 3:40 PM CDT 08/23/2025 4:28 PM CDT us Amparo Ambriz MD PhD LAB MICROBIOLO GY - GENERAL ORDERABLES Final Result [facility] [place] [address] * (ABNORMAL) Erythrocyte sedimentation rate (08/23/2025 3:40 PM CDT) Pathologist [facility] Erythrocyte sedimentation rate 22(H) 1 - 15 mm/hr Blood 08/23/2025 3:40 PM CDT 08/23/2025 4:28 PM CDT us Amparo Ambriz MD PhD LAB BLOOD ORDE LEIGH ANN Final Result Performing Organization Address City/[facility] Co de Phone Number [facility] [place] [address] * (ABNORMAL) CRP (acute phase) (08/23/2025 3:40 PM CDT) CRP 10.5(H) <=10.0 mg/L Blood 08/23/2025 3:40 PM CDT 08/23/2025 4:28 PM CDT us Amparo Ambriz MD PhD LAB BLOOD ORDE LEIGH ANN Final Result Performing Organization Address [facility] Co de Phone Number [facility] [place] [address] * Ferritin (08/23/2025 3:40 PM CDT) Ferritin 107 30 - 400 ng/mL Blood 08/23/2025 3:40 PM CDT 08/23/2025 4:28 PM CDT us Amparo Ambriz MD PhD LAB BLOOD ORDE LEIGH ANN Final Result Performing Organization Address City/[facility] Co de Phone Number [facility] [place] [address] * Vitamin B12 (08/23/2025 3:40 PM CDT) Vitamin B12 372 230 - 1,250 pg/mL Blood 08/23/2025 3:40 PM CDT 08/23/2025 4:28 PM CDT us Amparo Ambriz MD PhD LAB BLOOD ORDE LEIGH ANN Final Result [facility] [place] [address] * (ABNORMAL) Comprehensive metabolic panel (08/23/2025 3:40 PM CDT) Sodium 139 135 - 145 mmol/L Potassium, pl 4.2 3.3 - 4.9 mmol/L [facility] Chloride 103 97 - 110 mmol/L [facility] CO2 18(L) 22 - 32 mmol/L [facility] Anion gap 18(H) 2 - 15 mmol/L [facility] BUN 11 6 - 25 mg/dL [facility] Creatinine 1.02 0.80 - 1.30 mg/dL [facility] Glucose 80 70 - 199 mg/dL [facility] Comment: Interpretive Data Fasting glucose >/= 126 [...] Calcium 8.7 8.5 - 10.3 mg/dL [facility] Bilirubin, total 0.3 0.1 - 1.2 mg/dL [facility] Protein, pl 7.4 6.5 - 8.5 g/dL [facility] Albumin 3.6 3.5 - 5.0 g/dL [facility] Alk phos 86 40 - 130 Units/L [facility] ALT 41 7 - 55 Units/L [facility] AST 37 10 - 50 Units/L [facility] Blood 08/23/2025 3:40 PM CDT 08/23/2025 4:28 PM CDT Amparo Ambriz MD PhD LAB BLOOD ORDE LEIGH ANN Final Result [facility] [place] [address] from Last 3 Months Insurance ANTHEM ACCESS CHOICE ANTHEM ACCESS CHOICE Care Teams Medical Technologist Prn Relationship Specialty Start Date End Date Sanford Harvey MD [address] [place] [address] PCP - General Family Medicine 08/23/25 Amparo Abmriz MD PhD [address] [facility] [address] [address] [place] [address] PCP - Home Infusion Attending Internal Medicine 09/24/25 Sriram Guerrero, [facility] Pharmacist Pharmacy 09/19/25
--- OUTSIDE RECORDS SUMMARY | 2025-10-15 18:40 | XMS_ITS ---
Author Organization [facility] Address [address] [place] [phone] Care Team Providers Care Stereo Operator Name Role Phone Sanford Harvey MD Primary Care Provider [phone] Sriram Guerrero [facility] Unavailable Unavaila Amparo Figueredo MD PhD Unavailable Home Infusion Status:Enrolled (Active) Start date:09/03/2025 Enrollment date:09/03/2025 Related service episodes:Specialty Therapies (Active) Continued Care and Services Coordination
--- OUTSIDE RECORDS SUMMARY | 2025-10-15 18:40 | XMS_ITS | Clinical Summary ---
Author Organization [facility] Address [address] [place] [address] Phone Care Team Providers Care Ent Consultant Name Role Phone Sanford Harvey MD Primary Care Provider [phone] Allergies Active Allergy Reactions Criticality Noted Date [...] Encounters Date Type Department Care Team Description 09/25/2025 External Device Data [facility] ABSTRACTION Provider, Abstract 09/12/2025 External Device Data [facility] [place] Provider, Abstract 08/28/2025 External Device Data [facility] [place] Provider, Abstract 08/08/2025 External Device Data [facility] [place] Provider, [...] on file Legal Sex Male 7:19 PM DELIVERY RN Gender Identity Not on file Sexual Orientation [...] st Contact Info) Description 10/22/2025 3:00 PM DELIVERY RN Office Visit [facility] Oncology and Hematology - [place] [address] [facility] [address] [place] [address] Jerome Marcial MD [address] [facility] [address] [place] [address] Health Maintenance Due Date Last Done Comments Pre-Diabetes and Diabetes Screening 1981 DTAP/TDAP/TD VACCINES (1 - Tdap) 2000 HEPATITIS B VACCINES (1 of 3 - 19+ 3-dose series) 06/2000 HPV VACCINES (1 - 3-dose SCDM series) 2008 Preventative Visit- Commercial 11/22/2024 INFLUENZA VACCINE (#1) 2025 Insurance [employer]BS BLUE ACCESS CHOICE RX [employer] [facility] BLUE ACCESS CHOICE Advance Directives For more information, please contact: [phone] * Full Code (Latest Code Status on File) Date Activated Date Inactivated Comments 03/14/2025 8:12 AM 03/16/2025 1:42 PM * Default Full Code - Needs Discussion Date Activated Date Inactivated Comments 03/14/2025 2:30 AM 03/14/2025 8:11 AM Care Teams Ent Consultant Relationship Specialty Start Date End Date Sanford Harvey MD [address] [place] [phone] PCP - General Family Practice 03/14/25
--- OUTSIDE RECORDS SUMMARY | 2025-10-15 18:40 | XMS_ITS | Encounter Summary ---
Author Organization [facility] Address [address] [place] [address] Phone Care Team Providers Care County Demonstrator Name Role Phone Sanford Harvey MD Primary Care Provider [phone] Sriram Guerrero [facility] Unavailable Unavaila Amparo Figueredo MD PhD Unavailable Encounter Details Date Type Department Care Team (Late st Contact Info) Description 10/15/[address] [facility] Medicine Gastroenterology [address] [facility] 12th [place] [address] [place] [phone] Desi Landers RN Social History Tobacco Use Types Packs/Day Years Used Date Smoking Tobacco: Never Passive Smoke Exposure: Never Smokeless Tobacco: Never Sex and Gender Information Value Date Recorded Sex Assigned at Not on file Legal Sex Male 1:22 AM HOG STICKER Gender Identity Not on file Sexual Orientation Not on file documented as of this encounter Miscellaneous Notes * Telephone Encounter - Desi Landers RN - 10/15/2025 12:37 PM HOG STICKER Spoke to the pt. He said has been having increasing diarrhea with a small amount of blood later in the day. However, he woke up early this morning around 5 and has been going to the restroom nonstop since. He has significant rectal pain/pressure feels like I'm sitting on a golf ball. Denies fever, N/V, and abdominal pain. He is currently on Budesonide 9 mg daily. Has avoided taking Prednisone as it usually makes him feel worse and he has horrible mood swings. Pt said he did have C-Diff earlier in the year and agrees to go to [facility] to check stool for C-diff. He has not been on abx for anything recently. Otherwise, he feels as though he is able to stay hydrated and denies being dizzy or ligh theaded. Pt also informed me that he had blood clots earlier in the year and his left leg is now significantly swollen. I informed the pt that he needs to be seen in the ER now for this symptom. Pt said he will go to his local ER, [facility] in [place], [place]. STICKER documented in this encounter Plan of Treatment Not on file documented as of this encounter Visit Diagnoses Not on filedocumented in this encounter Care Teams County Demonstrator Relationship Specialty Start Date End Date Sanford Harvey MD [address] [place] [address] PCP - General Family Medicine 08/23/25 Amparo Ambriz MD PhD [address] [facility] [address] [place] [address] PCP - Home Infusion Attending Internal Medicine 09/24/25 Sriram Guerrero, [facility] Pharmacist Pharmacy 09/19/25 documented as of this encounter
--- OUTSIDE RECORDS SUMMARY | 2025-10-15 18:40 | XMS_ITS | Encounter Summary ---
Author Organization [facility] Address [address] [facility] [address] [place] [address] Phone Care Team Providers Care Glass Furnace Operator Name Role Phone Sanford Harvey MD Primary Care Provider + [phone] Sriram Guerrero [facility] Unavailable Unavaila Amparo Figueredo MD PhD Unavailable Encounter Details Date Type Department Care Team (Late st Contact Info) Description 09/26/2025 Results Follow-Up [facility] Medicine Gastroenterology [address] [facility] Advanced Medicine 12th [place] [address] [place] [address] Amparo Ambriz MD PhD [address] [facility] [place] [address] Comprehensive metabolic panel, without glucose (Outreach), Glucose, random (Outreach), CBC with auto differential, Additional followed-up results: 3 Social History Tobacco Use Types Packs/Day Years Used Date Smoking Tobacco: Never Passive Smoke Exposure: Never Smokeless Tobacco: Never Sex and Gender Information Value Date Recorded Sex Assigned at Not on file Legal Sex Male 1:22 AM TECHNICAL TRAINING MANAGER Gender Identity Not on file Sexual Orientation Not on file documented as of this encounter Miscellaneous Notes * Result Encounter Note - Amparo Ambriz MD PhD - 09/26/2025 8:01 AM CST CRP continues to be mildly elevated CBC with ongoing but slightly improved anemia CMP normal Continue with previous plan NICAL TRAINING MANAGER documented in this encounter Plan of Treatment Not on file documented as of this encounter Visit Diagnoses Not on filedocumented in this encounter Care Teams Glass Furnace Operator Relationship Specialty Start Date End Date Sanford Harvey MD [address] [address] PCP - General Family Medicine 08/23/25 Amparo Ambriz MD PhD [address] [facility] [address] DIV [place] [address] PCP - Home Infusion Attending Internal Medicine 09/24/25 Sriram Guerrero, [facility] Pharmacist Pharmacy 09/19/25 documented as of this encounter
[2025-10-15 18:49] LABS: Hematocrit 38.4 % (42.0-52.0); Hemoglobin 12.1 g/dL (14.0-18.0); Immature Granulocyte Percent A 0.3 % (0-0.5); Lymphocytes Absolute Auto 0.63 K/mm3 (0.9-3.2); Mean Corpuscular HGB Conc 31.5 g/dl (32-36); Mean Corpuscular Hemoglobin 29.1 pg (26-34); Mean Corpuscular Volume 92.3 fl (80-100); Nucleated Red Blood Cells Absolute Auto 0.000 K/mm3 (0.0-0.012); Nucleated Red Blood Cells Perc 0.0 % (0.0-0.2); Platelet Count Result 234 k/mm3 (150-375); Red Blood Count 4.16 M/mm3 (4.6-6.20); White Blood Count 5.9 K/mm3 (4.5-10.0)
[2025-10-15 19:01] LABS: Alanine Aminotransferase 13 U/L (6-50); Albumin Level 3.3 g/dL (3.5-5.1); Alkaline Phosphatase 63 U/L (38-126); Anion Gap 3 mmol/L (4-12); Aspartate Amino Transferase 16 U/L (17-59); Bilirubin,Total 0.3 mg/dL (0.2-1.3); Blood Urea Nitrogen 8 mg/dL (9-20); Calcium 8.5 mg/dL (8.4-10.2); Carbon Dioxide 29 mmol/L (22-30); Chloride 106 mmol/L (98-107); Estimated CRCL calculation 107 ml/min; Estimated Glomerular Filt Rate > 60; Glucose 106 mg/dL (65-110); Potassium 3.6 mmol/L (3.4-5.0); Sodium 138 mmol/L (137-145); Total Protein 6.6 g/dL (6.3-8.2)
[2025-10-15 19:04] LABS: INR 1.2; Prothrombin Time 15.0 Seconds (11.1-14.7)
[2025-10-15 19:05] LABS: Partial Thromboplastin Time 33.0 Seconds (22.3-36.8)
[2025-10-15 20:27] VITALS: BP 110/72; PULSE 76; RESP 17; O2SAT 97
[2025-10-15 21:39] VITALS: BP 113/71; PULSE 81; RESP 14; O2SAT 99
[2025-10-15 21:48] LABS: Toxigenic C. Diff POSITIVE (NEGATIVE)
[2025-10-15] MEDS: FIDAXOMICIN 200 MG TABLET PO (22:09)
[2025-10-15 23:00] VITALS: BP 116/75; PULSE 89; RESP 16; O2SAT 99
[2025-10-15 23:02] LABS: CDiff Toxin A&B Ag Negative (Negative); Clostridium Difficile GDH Ag Positive (Negative)
--- NOTE | 2025-10-15 23:05 | WPCEDHO ---
ED Hand Off Checklist All vitals saved: yes IV Site documented: yes All med administrations documented: yes Triage Note Triage Note Pt ambulates to the ED for 10/15/25 20:14 evaluation of LLE swelling over the last couple of days. Pt states in February he had a DVT in the leg. Pt is on blood thinners. agree with triage assessment. pt also reports bloody stool. Allergies ustekinumab (From Stelara) Allergy (Intermediate, Verified 07/04/25 11:14) Chest Pain Administered/Completed Medications Discontinued Medications Fidaxomicin (Fidaxomicin 200 Mg Tablet) 200 mg PO ONCE STA Stop: 10/15/25 21:49 Last Admin: 10/15/25 22:09 Dose: 200 mg Documented By: ACS Interventions/Assessments IV / Saline Lock, Insert Start: 10/15/25 18:25 Freq: ONCE Status: Active Protocol: Document 10/15/25 18:49 MJS (Rec: 10/15/25 18:51 MJS [id number]) IV Assessment Peripheral Access Left Hand IV Catheter Access Initiated IV Insertion Date 10/15/25 IV Insertion Time 18:51 Catheter Gauge 18 IV Insertion 1 Attempts Ultrasound Used for No Placement IV Site Assessment WNL IV Care and WNL Maintenance Last Vital Signs Temperature 97.7 F 10/15/25 17:44 Pulse Rate 89 10/15/25 23:00 Respiratory Rate 16 10/15/25 23:00 Pulse Oximetry 99 10/15/25 23:00 Blood Pressure 116/75 10/15/25 23:00 Blood Pressure Mean 88 10/15/25 23:00 Oxygen Delivery Room Air 10/15/25 17:44 Weight 88.4 kg 10/15/25 20:14 Last Result - Abnormals Only RBC 4.16 M/mm3 (4.6-6.20) L 10/15/25 18:43 Hgb 12.1 g/dL (14.0-18.0) L 10/15/25 18:43 Hct 38.4 % (42.0-52.0) L 10/15/25 18:43 MCHC 31.5 g/dl (32-36) L 10/15/25 18:43 Neut % (Auto) 79.8 % (45.5-73.1) H 10/15/25 18:43 Lymph % (Auto) 10.7 % (18.3-44.2) L 10/15/25 18:43 Lymph # (Auto) 0.63 K/mm3 (0.9-3.2) L 10/15/25 18:43 PT 15.0 Seconds (11.1-14.7) H 10/15/25 18:43 Anion Gap 3 mmol/L (4-12) L 10/15/25 18:43 BUN 8 mg/dL (9-20) L 10/15/25 18:43 AST 16 U/L (17-59) L 10/15/25 18:43 Albumin 3.3 g/dL (3.5-5.1) L 10/15/25 18:43 C. difficile (PCR) Positive (NEGATIVE) A* 10/15/25 20:29 C. difficile GDH Ag Positive (Negative) A 10/15/25 20:29 Most Recent Suicide Severity Rating Suicide Severity Rating NO RISK INDICATED 10/15/25 20:14
[2025-10-15] MEDS: SODIUM CHLORIDE 0.9% IV 1,000 ML 150 ML IV CONT (23:28)
[2025-10-15 23:39] VITALS: BP 116/75; PULSE 89; RESP 16; O2SAT 99
[2025-10-15 23:47] VITALS: BMI 27.9
--- NOTE | 2025-10-15 23:48 | ADMGEN ---
This patient, Lukasz Gibbs, was admitted to 3 [facility] Surg Room 331-02. Patient/family oriented to hospital policies and general routines including ID bracelet, bed and alarms, visiting hours, pain management, procedures, bathroom and other care routines, personal items, smoking policy, room service/diet, and visiting hours. Information on how to activate the Rapid Response Team has been discussed. Patient/Family are encouraged to report perceived risks to care and to ask questions if they do not understand what they are told or what they should do.
[2025-10-15 23:59] VITALS: BP 109/66; PULSE 74; RESP 17; TEMP 36.9; O2SAT 98
[2025-10-16] MEDS: ACETAMINOPHEN 325 MG TABLET 650 MG PO ×2 (05:36→13:22)
[2025-10-16] MEDS: SODIUM CHLORIDE 0.9% IV 1,000 ML 150 ML IV CONT (05:42)
[2025-10-16 05:53] VITALS: BP 113/72; PULSE 75; RESP 18; TEMP 36.8; O2SAT 99
[2025-10-16 06:17] LABS: Hematocrit 34.9 % (42.0-52.0); Hemoglobin 10.8 g/dL (14.0-18.0); Immature Granulocyte Percent A 0.2 % (0-0.5); Lymphocytes Absolute Auto 1.03 K/mm3 (0.9-3.2); Mean Corpuscular HGB Conc 30.9 g/dl (32-36); Mean Corpuscular Hemoglobin 28.8 pg (26-34); Mean Corpuscular Volume 93.1 fl (80-100); Nucleated Red Blood Cells Absolute Auto 0.000 K/mm3 (0.0-0.012); Nucleated Red Blood Cells Perc 0.0 % (0.0-0.2); Platelet Count Result 221 k/mm3 (150-375); Red Blood Count 3.75 M/mm3 (4.6-6.20); White Blood Count 4.0 K/mm3 (4.5-10.0)
[2025-10-16 06:38] LABS: Anion Gap 3 mmol/L (4-12); Blood Urea Nitrogen 10 mg/dL (9-20); Calcium 8.0 mg/dL (8.4-10.2); Carbon Dioxide 26 mmol/L (22-30); Chloride 107 mmol/L (98-107); Estimated CRCL calculation 101 ml/min; Estimated Glomerular Filt Rate > 60; Glucose 120 mg/dL (65-110); Potassium 3.5 mmol/L (3.4-5.0); Sodium 136 mmol/L (137-145)
--- NOTE | 2025-10-16 07:45 | PM.IMHP ---
H&P: HPI History of Present Illness Date/Time: 10/16/25 07:45 Chief Complaint: Left lower extremity swelling Narrative: 45yo male with ulcerative pancolitis on biologics and hx of Left LE DVT and PE here for left lower extremity swelling. In February 2025, the patient developed a Left LE DVT involving the common femoral, proximal superficial femoral, distal superficial femoral, popliteal, posterior tibial and gastrocnemius veins. He also had large bilateral pulmonary emboli with findings suggesting pulmonary hypertension and right heart strain. He was treated with Eliquis and has been on this medication since. He had improvement in the left LE edema but this worsened in July. Repeat left LE doppler 0n 08/24/25 showing thrombus with diminished flow in the left superficial femoral and popliteal veins with the remaining visualized deep venous system is unremarkable which appears slightly improved. He continues to have mild edema to the left LE but this worsened over the past 1-2 days. No calf pain, No SOB or CP. No fever or chills. He does have night sweats but this is more long standing. He presented to the ED for this complant. He was diagnosed with ulcerative pancolitis in 2023. He has been on Stelara and Tremfya in the past without benefit. He was having 20-230 small stools per day that affects his ability to leave the house for family events. He follows with [facility] and was changed to Remicade about 3 weeks ago. He feels this has worsened his diarrhea. He has frequent bloody stool and abdominal cramping. No abd pain after stooling. Eating okay and weight stable now. He did drop his weight from 265# to 190# but stable weight over the past 6 months. He does limit his diet but avoiding red meat, sugar, and fats. No nausea/vomiting. No mouth sores. No headache or eye pain. No dyusria or hematuria. No cough or SOB. No rash. In the ED, the patient was hemodynamically stable. Left LE venous doppler showing persistent DVT in the femoral and popliteal veins of the left lower extremity including the gastrocnemius vein. CBC normal except with Hgb 12.1. CMP was unrevealing. CDiff PCR was positive with GDH Ag positive and CDiff toxin negative. He was started on Dificid and IV fluids and admitted for further care. He feels the left leg is less swollen today. He is still passing stool and gas. Review of Systems Review of Systems: All systems reviewed & are unremarkable except as noted in HPI and below PMFSH Past Medical History Medical History Ulcerative pancolitis Leg edema, left Chronic diarrhea Colitis Weight loss Nausea and vomiting in adult Surgical History Surgical History No history of previous surgery Family History Family History Grandparent Colon cancer Other Colon cancer Mother Chronic obstructive pulmonary disease Social History Social History (Updated 10/16/25 @ 09:45 by Ted Salcido MD) Social History: Lives at home with , 2 biologic children and 1 step-child. They have dogs and birds. No alcohol, tobacco or drug use. 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[employer] Spiritual care concerns: No Meds Home Medications and Allergies Home Medications ?Medication ?Instructions ?Recorded ?Confirmed ?Type diaper,brief,adult,disposable #120 ea 08/18/24 12/06/24 Rx guselkumab 200 mg/20 mL (10 mg/mL) 200 mg (20 mL) IV ONCE 10/19/24 12/06/24 Rx intravenous solution (Tremfya) mesalamine 4 gram/60 mL enema See Rx Instructions .Route 10/24/24 10/16/25 Rx .COMPLEX #5,040 mL diphenoxylate-atropine 2.5 1 tablet PO TID #60 tabs 01/03/25 10/16/25 Rx mg-0.025 mg tablet (Lomotil) hyoscyamine sulfate 0.125 mg See Rx Instructions .Route 01/22/25 10/16/25 Rx sublingual tablet .COMPLEX #360 tabs loperamide 1 mg/7.5 mL oral liquid 2 mg (15 mL) PO Q4H PRN loose 04/09/25 10/16/25 Rx (Imodium A-D) stool #450 mL diphenoxylate-atropine 2.5 1 tablet PO TID PRN diarrhea #90 04/12/25 10/16/25 Rx mg-0.025 mg tablet (Lomotil) tabs diphenoxylate-atropine 2.5 1 tablet PO TID PRN diarrhea #90 04/12/25 10/16/25 Rx mg-0.025 mg tablet (Lomotil) tabs tramadol 50 mg tablet 50 mg PO Q6H PRN pain #90 tabs 04/30/25 10/16/25 Rx pantoprazole 40 mg tablet,delayed 40 mg PO Q12H #60 tabs 06/26/25 10/16/25 Rx release apixaban 5 mg tablet (Eliquis) 5 mg PO BID #60 tabs 07/16/25 10/16/25 Rx Allergies Allergy/AdvReac Type Severity Reaction Status Date / Time No Known Allergies Allergy Verified 10/16/25 00:26 Vital Signs Vital Signs - 24 hr 10/15/25 17:44 10/15/25 20:27 10/15/25 21:39 Temperature 97.7 F Pulse Rate 98 76 81 Respiratory Rate 16 17 14 Blood Pressure 125/83 110/72 113/71 Pulse Oximetry 99 97 99 Oxygen Delivery Room Air 10/15/25 23:00 10/15/25 23:39 10/15/25 23:59 Temperature 98.5 F Pulse Rate 89 89 74 Respiratory Rate 16 16 17 Blood Pressure 116/75 116/75 109/66 Pulse Oximetry 99 99 98 Oxygen Delivery 10/16/25 05:53 Temperature 98.2 F Pulse Rate 75 Respiratory Rate 18 Blood Pressure 113/72 Pulse Oximetry 99 Oxygen Delivery Exam Narrative: AF 98.2 113/72 75 18 99% Gen - well/ill appearing male in no acute respiratory distress who is nontoxic-appearing lying semi recumbent in bed HEENT - normocephalic. Atraumatic. Pupils equal round and reactive. Extraocular motions intact. Sclera clear and anicteric. Nares patent. Oropharynx was clear. No oral lesions. Moist mucous membranes. Tongue was midline. Palate michelle symmetrically. No facial asymmetry. Neck - neck was supple. No dominant adenopathy, thyromegaly or masses Chest - lungs are clear to auscultation bilaterally. No wheezes or crackles. CV - heart was regular rate and rhythm. S1-S2. No murmurs gallops or rubs. Abd - abdomen was soft. Nondistended. Positive bowel sounds. Nontender but patient with guarding (stating he is ticklish) Ext - no clubbing or cyanosis. Very mild edema to the LLE. 2+ DP pulses bilaterally. Neuro - patient is alert and oriented x4. Strength is 5/5 in both upper and lower extremities. Cranial nerves 2-12 are intact. Speech is clear. Psych - normal mood and affect. Patient is pleasant and cooperative. Skin - warm and dry. No rashes noted. H&P: Results Labs Labs: Short CBC 10/15/25 10/16/25 Range/Units 18:43 05:29 WBC 5.9 4.0 L (4.5-10.0) K/mm3 Hgb 12.1 L 10.8 L (14.0-18.0) g/dL Hct 38.4 L 34.9 L (42.0-52.0) % Plt Count 234 221 (150-375) k/mm3 BMP 10/15/25 10/16/25 18:43 05:28 Sodium 138 136 L Potassium 3.6 3.5 Chloride 106 107 Carbon Dioxide 29 26 BUN 8 L 10 Creatinine 0.79 0.84 Glucose 106 120 H Calcium 8.5 8.0 L Liver Function 10/15/25 Range/Units 18:43 Total Bilirubin 0.3 (0.2-1.3) mg/dL AST 16 L (17-59) U/L ALT 13 (6-50) U/L Alkaline Phosphatase 63 (38-126) U/L Albumin 3.3 L (3.5-5.1) g/dL Assessment and Plan Assessment and plan (1) C. difficile diarrhea: Code(s): A04.72 - Enterocolitis due to Clostridium difficile, not specified as recurrent Status: Acute Assessment and Plan: Patient with persistent bloody diarrhea despite the use of biologic agents. Stool studies sent from the ED. CDiff PCR and GDH Ag positive but Toxin negative to suggest either nonfunctioning toxin gene, low level of CDiff or false negative toxin assay. Dificid started. Monitor stool output but this may not improve given his underlying issue of UC. WBC normal on admission and now has become leukopenic at 4000. Check CRP but could be chronically elevated from UC. ID consult. Repeat CDiff test. (2) DVT, lower extremity: Code(s): I82.409 - Acute embolism and thrombosis of unspecified deep veins of unspecified lower extremity Status: Acute Assessment and Plan: Left LE venous doppler showing similar findings when compared to prior exams. Patient having intermittent worsening of chronic left LE edema. [place] related to the significant clot burden to the left leg and not a recurrent DVT. Suspect worsening edema related to fluid status, sodium intake and possibly made worse with leg being dependent. Leg better when elevated. Follow. Continue Eliquis at current dose. (3) Ulcerative pancolitis: Code(s): K51.00 - Ulcerative (chronic) pancolitis without complications Status: Acute Assessment and Plan: Patient with UC diagnosed in 2023. He is now on his 3rd biologic agent without much improvement. Symptoms may not improve due to ongoing CDiff infection if this is a true infection. As above. Hold Remicade. Recommended he not care for the birds in the house or have the birds find a new home. Plan DVT Prophylaxis - Eliquis Code status - full
[2025-10-16 08:00] VITALS: BP 114/74; PULSE 79; RESP 18; TEMP 36.4; O2SAT 98
[2025-10-16] MEDS: FIDAXOMICIN 200 MG TABLET PO ×2 (08:57→20:06)
--- NOTE | 2025-10-16 09:20 | WPDGICN ---
Assessment and Plan Assessment and plan (1) Chronic diarrhea: Code(s): K52.9 - Noninfective gastroenteritis and colitis, unspecified Status: Acute (2) Ulcerative pancolitis: Code(s): K51.00 - Ulcerative (chronic) pancolitis without complications Status: Acute (3) GERD (gastroesophageal reflux disease): Qualifiers: Esophagitis presence: without esophagitis Qualified Code(s): K21.9 - Gastro-esophageal reflux disease without esophagitis Code(s): K21.9 - Gastro-esophageal reflux disease without esophagitis Status: Acute (4) Hematochezia: Code(s): K92.1 - Melena Status: Acute Plan 1. C-Diff/Ulcerative proctitis/diarrhea/hematochezia: Patient last tested positive for C-Diff in Aug 2024 and was treated. Last colonoscopy with us was February 2024 and a 1 year repeat was recommended. Endoscopy was not done at [place] due to delay 2/2 DVT diagnosis and treatment and he was referred to [facility] IBD specialist to discuss possible dual therapy, his last visit with Dr. Ambriz was on 08/23/2025. Patient previously tried and failed Stelara and Tremfya and is currently on Remicade. He presented to the ER yesterday with complaints of left leg swelling and bloody diarrhea. Patient is already scheduled for a follow up visit with Dr. Ambriz on November 02.Since switching to Remicade he has continued to experience diarrhea and rectal bleeding but is unclear if it is related to non response to medication or if he has been struggling with this C diff infection. Continue treatment with Dificid Order placed to start Florastor to be taken in combination with treatment Patient will need to follow up with his IBD specialist following his hospitalization on November 02 Thank you very much for allowing me to share in the care of this very nice patient. This report may have been done utilizing a voice recognition system. Attempts have been made to correct errors. However, there may be uncorrected grammatical, spelling, and recognition errors present. GI Consult Note Consult date/time: 10/16/25 09:20 Reason for consult: C-Diff HPI: Lukasz Gibbs is a 45 year old male with Hx of DVT, PE, C-Diff and ulcerative proctitis. He presented to the ER 10/15/2025 with complaints of left leg swelling and bloody diarrhea. GI has been consulted for C-Diff. Patient presented to the emergency room [id number] with complaints of left leg pain and bloody diarrhea. He has a history of DVTs and is being monitored by Dr. Marcial. Patient's weight has remained stable since he was last seen in June from 192-->194.5 lbs. He complains of lower abdominal pain that occurs movements along with a sensation of rectal pressure. He states that right now he is having 40 or more bowel movements that are small, liquid and incomplete. He states that today his bowel frequency has improved and he has only had 6 bowel movements before noon patient having intermittent episodes of rectal bleeding but since starting Remicade this bleeding has become more frequent. He denies any nausea, vomiting, bloating, odynophagia, dysphagia, uncontrolled reflux on pantoprazole 40 mg daily, regurgitation, early satiety, appetite or weight loss. He denies constipation or melena. ENDOSCOPY HISTORY: EGD: 02/29/[address] for nausea and vomiting Findings: Grade 1 reflux esophagitis small hiatal hernia moderate gastritis Bx results: Stomach, biopsy: - Active gastritis - Negative for H. pylori Small intestine, small bowel, biopsy: - Active enteritis - Intact villous and crypt architecture without intraepithelial lymphocytosis COLONOSCOPY: 02/29/[address] for diarrhea and weight loss Findings: [id number] diffuse colitis throughout the colon In 1 year or sooner pending clinical course Bx Results: Large intestine, random colon, biopsy: - Chronic active colitis LABS AND STOOL STUDIES: Labs 10/16/2025: WBC 4, Hgb 11, Hct 35, MCV 93, platelets 221, INR 1.2 Sodium 136, potassium 3.5, BUN 10, creatinine 0.84, GFR >60, calcium 8.0 Total bilirubin 0.3, AST 16, ALT 13, Alkaline Phos 63, albumin 3.3 Fecal calprotectin at its highest in February 2025 @ 4730 and most recent 03/31/2025 of 1120 C- Diff positive 09/01/2024 and pested positive again this admission showing positive PCR, negative toxin and positive GDH IMAGING: Chest CTA 08/21/2025: IMPRESSION: 1. No PE or other acute cardiopulmonary findings. 2. Chronic colitis. CT abdomen/pelvis 04/12/24: Diffuse large bowel wall thickening Review of Systems Constitutional: Constitutional: Reports as per HPI ENT: Reports as per HPI Cardiovascular: Cardiovascular: Reports as per HPI, Denies chest pain and Denies dyspnea Respiratory: Respiratory: Denies cough and Denies dyspnea Gastrointestinal: Gastrointestinal: Reports as per HPI Musculoskeletal: Musculoskeletal: Reports as per HPI Integumentary/Breasts: Skin/Breast: Reports as per HPI Psychiatric: Psychiatric: Reports as per HPI Endocrine: Endocrine: Reports no additional endocrine complaints Hematologic/Lymphatic: Hematologic/Lymphatic: Reports no additional hematologic/lymphatic complaints [facility] Past Medical History Medical History Ulcerative pancolitis Leg edema, left Chronic diarrhea Colitis Weight loss Nausea and vomiting in adult Surgical History Surgical History No history of previous surgery Family History Family History Grandparent Colon cancer Other Colon cancer Mother Chronic obstructive pulmonary disease Social History Social History (Updated 10/16/25 @ 09:45 by Ted Salcido MD) Social History: Lives at home with , 2 biologic children and 1 step-child. They have dogs and birds. No alcohol, tobacco or drug use. 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[employer] Spiritual care concerns: No Meds Home Medications and Allergies Home Medications ?Medication ?Instructions ?Recorded ?Confirmed ?Type diaper,brief,adult,disposable #120 ea 08/18/24 12/06/24 Rx guselkumab 200 mg/20 mL (10 mg/mL) 200 mg (20 mL) IV ONCE 10/19/24 12/06/24 Rx intravenous solution (Tremfya) mesalamine 4 gram/60 mL enema See Rx Instructions .Route 10/24/24 10/16/25 Rx .COMPLEX #5,040 mL diphenoxylate-atropine 2.5 1 tablet PO TID #60 tabs 01/03/25 10/16/25 Rx mg-0.025 mg tablet (Lomotil) hyoscyamine sulfate 0.125 mg See Rx Instructions .Route 01/22/25 10/16/25 Rx sublingual tablet .COMPLEX #360 tabs loperamide 1 mg/7.5 mL oral liquid 2 mg (15 mL) PO Q4H PRN loose 04/09/25 10/16/25 Rx (Imodium A-D) stool #450 mL diphenoxylate-atropine 2.5 1 tablet PO TID PRN diarrhea #90 04/12/25 10/16/25 Rx mg-0.025 mg tablet (Lomotil) tabs diphenoxylate-atropine 2.5 1 tablet PO TID PRN diarrhea #90 04/12/25 10/16/25 Rx mg-0.025 mg tablet (Lomotil) tabs tramadol 50 mg tablet 50 mg PO Q6H PRN pain #90 tabs 04/30/25 10/16/25 Rx pantoprazole 40 mg tablet,delayed 40 mg PO Q12H #60 tabs 06/26/25 10/16/25 Rx release apixaban 5 mg tablet (Eliquis) 5 mg PO BID #60 tabs 07/16/25 10/16/25 Rx Allergies Allergy/AdvReac Type Severity Reaction Status Date / Time No Known Allergies Allergy Verified 10/16/25 00:26 Vital Signs Vital Signs - 24 hr 10/15/25 17:44 10/15/25 20:27 10/15/25 21:39 Temperature 97.7 F Pulse Rate 98 76 81 Respiratory Rate 16 17 14 Blood Pressure 125/83 110/72 113/71 Pulse Oximetry 99 97 99 Oxygen Delivery Room Air 10/15/25 23:00 10/15/25 23:39 10/15/25 23:59 Temperature 98.5 F Pulse Rate 89 89 74 Respiratory Rate 16 16 17 Blood Pressure 116/75 116/75 109/66 Pulse Oximetry 99 99 98 Oxygen Delivery 10/16/25 05:53 Temperature 98.2 F Pulse Rate 75 Respiratory Rate 18 Blood Pressure 113/72 Pulse Oximetry 99 Oxygen Delivery Exam Const: General: cooperative, healthy appearing, comfortable, no acute distress and well developed Orientation/consciousness: oriented to person, oriented to place, oriented to time and patient oriented x3 HENMT: Head: normal to inspection, normocephalic and atraumatic Mouth: Yes Normal oral and palatal mucosa present and Yes moist mucous membranes Eyes: General: appearance normal, both eyes and all related structures Conjunctivae: conjunctivae normal Sclera: sclerae normal Pupils: Equal, round and reactive pupils present Neck: Neck: normal visual inspection Chest: Chest palpation & inspection: normal inspection of the chest Resp: Effort & Inspection: normal respiratory effort and able to speak in complete sentences Auscultation: clear to auscultation bilaterally Cardio: Jugular venous distension: no JVD Rate: regular rate Rhythm: regular rhythm Heart sounds: S1 normal heart sound present and S2 normal heart sound present GI: Inspection: normal to inspection GI Palp: Yes Soft to palpation and Yes No hepatosplenomegaly present Auscultation: normal bowel sounds Rectal Exam: deferred Skin: General skin exam: normal color and no rashes or lesions noted Neuro: General: oriented to person, oriented to place, oriented to time and patient oriented x3 Cranial nerves: Yes Equal, round and reactive pupils present Speech: normal speech Extrem: General: normal to inspection and no clubbing, cyanosis or edema Psych: Appearance: grossly normal and well kempt Affect: normal affect Results Labs 10/16/25 05:29 10/16/25 05:28 Labs: Short CBC 10/15/25 10/16/25 Range/Units 18:43 05:29 WBC 5.9 4.0 L (4.5-10.0) K/mm3 Hgb 12.1 L 10.8 L (14.0-18.0) g/dL Hct 38.4 L 34.9 L (42.0-52.0) % Plt Count 234 221 (150-375) k/mm3 BMP 10/15/25 10/16/25 18:43 05:28 Sodium 138 136 L Potassium 3.6 3.5 Chloride 106 107 Carbon Dioxide 29 26 BUN 8 L 10 Creatinine 0.79 0.84 Glucose 106 120 H Calcium 8.5 8.0 L Liver Function 10/15/25 Range/Units 18:43 Total Bilirubin 0.3 (0.2-1.3) mg/dL AST 16 L (17-59) U/L ALT 13 (6-50) U/L Alkaline Phosphatase 63 (38-126) U/L Albumin 3.3 L (3.5-5.1) g/dL
[2025-10-16 10:21] LABS: CRP 1.5 mg/dL (<1.0)
[2025-10-16] MEDS: SACCHAROMYCES BOULARDII 250 MG CAPSULE PO (13:23)
[2025-10-16] MEDS: HYOSCYAMINE SULFATE 0.125 MG TABLET BY MOUTH ×3 (13:23→20:06)
[2025-10-16 13:40] LABS: Toxigenic C. Diff POSITIVE (NEGATIVE)
[2025-10-16 14:00] VITALS: BP 114/69; PULSE 85; RESP 20; TEMP 36.6; O2SAT 98
--- NOTE | 2025-10-16 17:15 | WPDIDCN ---
Assessment and Plan Assessment and plan (1) C. difficile diarrhea: Code(s): A04.72 - Enterocolitis due to Clostridium difficile, not specified as recurrent Status: Acute (2) Ulcerative pancolitis: Code(s): K51.00 - Ulcerative (chronic) pancolitis without complications Status: Acute Assessment and Plan: ASSESSMENT: 1. diarrhea iso C. diff positivity and UC--possible that both could be playing a role 2. immunocompromised host on remicade 3. UC 4. DVT/PE RECOMMENDATIONS: -Continue dificid day 2--pt already notes improvement -stop probiotics--pts with lots of colon inflammation like in setting with C. diff can become fungemic, especially in setting of immunocompromise -f/u on stool studies -supportive care d/w nursing staff Pt was seen via video telehealth consultation with the assistance of staff. Chart, data and patient info reviewed. Patient was located at [facility] while I was in my [place] office. Pt gave consent. HPI Data of Consult Date/Time: 10/16/25 17:15 Requesting Physician: Federica Ragsdale DO Primary Care Provider: Sanford Harvey MD Consult Narrative Reason for consult: C. diff Narrative: Lukasz Gibbs is a 45 year old male with pmhx/o UC recently giving remicade, presented to ED wth LLE edema. Also just diagnosed with C. diff. Started on dificid. States he is better already at my virtual visit today. Per chart, pt has hx/o LLE DVT and PE. Follows with GI. Pt states he had an episode of C. diff last year. PMFSH Past Medical History Medical History Ulcerative pancolitis Leg edema, left Chronic diarrhea Colitis Weight loss Nausea and vomiting in adult Surgical History Surgical History No history of previous surgery Family History Family History Grandparent Colon cancer Other Colon cancer Mother Chronic obstructive pulmonary disease Social History Social History (Updated 10/16/25 @ 09:45 by Ted Salcido MD) Social History: Lives at home with , 2 biologic children and 1 step-child. They have dogs and birds. No alcohol, tobacco or drug use. 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 Spiritual care concerns: No Meds Home Medications and Allergies Home Medications ?Medication ?Instructions ?Recorded ?Confirmed ?Type diaper,brief,adult,disposable #120 ea 08/18/24 12/06/24 Rx guselkumab 200 mg/20 mL (10 mg/mL) 200 mg (20 mL) IV ONCE 10/19/24 12/06/24 Rx intravenous solution (Tremfya) mesalamine 4 gram/60 mL enema See Rx Instructions .Route 10/24/24 10/16/25 Rx .COMPLEX #5,040 mL diphenoxylate-atropine 2.5 1 tablet PO TID #60 tabs 01/03/25 10/16/25 Rx mg-0.025 mg tablet (Lomotil) hyoscyamine sulfate 0.125 mg See Rx Instructions .Route 01/22/25 10/16/25 Rx sublingual tablet .COMPLEX #360 tabs loperamide 1 mg/7.5 mL oral liquid 2 mg (15 mL) PO Q4H PRN loose 04/09/25 10/16/25 Rx (Imodium A-D) stool #450 mL diphenoxylate-atropine 2.5 1 tablet PO TID PRN diarrhea #90 04/12/25 10/16/25 Rx mg-0.025 mg tablet (Lomotil) tabs diphenoxylate-atropine 2.5 1 tablet PO TID PRN diarrhea #90 04/12/25 10/16/25 Rx mg-0.025 mg tablet (Lomotil) tabs tramadol 50 mg tablet 50 mg PO Q6H PRN pain #90 tabs 04/30/25 10/16/25 Rx pantoprazole 40 mg tablet,delayed 40 mg PO Q12H #60 tabs 06/26/25 10/16/25 Rx release apixaban 5 mg tablet (Eliquis) 5 mg PO BID #60 tabs 07/16/25 10/16/25 Rx Allergies Allergy/AdvReac Type Severity Reaction Status Date / Time No Known Allergies Allergy Verified 10/16/25 00:26 Vital Signs Vital Signs - 24 hr 10/15/25 17:44 10/15/25 20:27 10/15/25 21:39 Temperature 97.7 F Pulse Rate 98 76 81 Respiratory Rate 16 17 14 Blood Pressure 125/83 110/72 113/71 Pulse Oximetry 99 97 99 Oxygen Delivery Room Air 10/15/25 23:00 10/15/25 23:39 10/15/25 23:59 Temperature 98.5 F Pulse Rate 89 89 74 Respiratory Rate 16 16 17 Blood Pressure 116/75 116/75 109/66 Pulse Oximetry 99 99 98 Oxygen Delivery 10/16/25 05:53 10/16/25 08:00 10/16/25 08:00 Temperature 98.2 F 97.6 F Pulse Rate 75 79 Respiratory Rate 18 18 Blood Pressure 113/72 114/74 Pulse Oximetry 99 98 Oxygen Delivery Room Air 10/16/25 14:00 Temperature 97.8 F Pulse Rate 85 Respiratory Rate 20 Blood Pressure 114/69 Pulse Oximetry 98 Oxygen Delivery Exam Narrative: on room air, non-toxic abd NT LLE with trace edema per nurse exam Results Labs 10/16/25 05:29 10/16/25 05:28 Labs: Short CBC 10/15/25 10/16/25 Range/Units 18:43 05:29 WBC 5.9 4.0 L (4.5-10.0) K/mm3 Hgb 12.1 L 10.8 L (14.0-18.0) g/dL Hct 38.4 L 34.9 L (42.0-52.0) % Plt Count 234 221 (150-375) k/mm3 BMP 10/15/25 10/16/25 18:43 05:28 Sodium 138 136 L Potassium 3.6 3.5 Chloride 106 107 Carbon Dioxide 29 26 BUN 8 L 10 Creatinine 0.79 0.84 Glucose 106 120 H Calcium 8.5 8.0 L Liver Function 10/15/25 Range/Units 18:43 Total Bilirubin 0.3 (0.2-1.3) mg/dL AST 16 L (17-59) U/L ALT 13 (6-50) U/L Alkaline Phosphatase 63 (38-126) U/L Albumin 3.3 L (3.5-5.1) g/dL
[2025-10-16] MEDS: APIXABAN 5 MG TABLET PO (20:06)
[2025-10-16 21:49] VITALS: BP 136/85; PULSE 94; RESP 18; TEMP 36.4; O2SAT 100
[2025-10-17 05:11] LABS: Hematocrit 35.1 % (42.0-52.0); Hemoglobin 10.8 g/dL (14.0-18.0); Immature Granulocyte Percent A 0.3 % (0-0.5); Lymphocytes Absolute Auto 1.11 K/mm3 (0.9-3.2); Mean Corpuscular HGB Conc 30.8 g/dl (32-36); Mean Corpuscular Hemoglobin 29.0 pg (26-34); Mean Corpuscular Volume 94.4 fl (80-100); Nucleated Red Blood Cells Absolute Auto 0.000 K/mm3 (0.0-0.012); Nucleated Red Blood Cells Perc 0.0 % (0.0-0.2); Platelet Count Result 211 k/mm3 (150-375); Red Blood Count 3.72 M/mm3 (4.6-6.20); White Blood Count 7.4 K/mm3 (4.5-10.0)
[2025-10-17 06:00] VITALS: BP 126/75; PULSE 71; RESP 16; TEMP 36.9; O2SAT 100
[2025-10-17 06:12] LABS: Anion Gap -1 mmol/L (4-12); Blood Urea Nitrogen 8 mg/dL (9-20); CRP 1.2 mg/dL (<1.0); Calcium 8.2 mg/dL (8.4-10.2); Carbon Dioxide 27 mmol/L (22-30); Chloride 109 mmol/L (98-107); Estimated CRCL calculation 99 ml/min; Estimated Glomerular Filt Rate > 60; Glucose 95 mg/dL (65-110); Potassium 3.8 mmol/L (3.4-5.0); Sodium 135 mmol/L (137-145)
[2025-10-17] MEDS: MULTIVITAMINS THERAPEUTIC TAB (*BKC) 1 TABLET PO (09:45)
[2025-10-17] MEDS: FIDAXOMICIN 200 MG TABLET PO ×2 (09:45→20:36)
[2025-10-17] MEDS: HYOSCYAMINE SULFATE 0.125 MG TABLET BY MOUTH ×4 (09:45→20:37)
[2025-10-17] MEDS: APIXABAN 5 MG TABLET PO ×2 (09:45→20:37)
[2025-10-17 14:00] VITALS: BP 109/70; PULSE 78; RESP 14; TEMP 36.8; O2SAT 100
--- NOTE | 2025-10-17 14:53 | P.PNGI_ITS ---
Progress Note: A&P Assessment and Plan (1) Ulcerative pancolitis: Code(s): K51.00 - Ulcerative (chronic) pancolitis without complications Status: Acute Assessment and Plan: he was on stelara then tremfya most recently remicade after persistent symptoms and he is currently seeing IBD specialist at [facility] plan is to complete treatment with dificid and he already has office visit in 2 weeks with his GI home tomorrow (2) C. difficile diarrhea: Code(s): A04.72 - Enterocolitis due to Clostridium difficile, not specified as recurrent Status: Acute Assessment and Plan: on treatment (3) DVT, lower extremity: Qualifiers: Affected thrombotic vein of extremity: femoral Chronicity: acute Laterality: left Qualified Code(s): I82.412 - Acute embolism and thrombosis of left femoral vein Code(s): I82.409 - Acute embolism and thrombosis of unspecified deep veins of unspecified lower extremity Status: Acute Assessment and Plan: this is a chronic finding, repeat doppler with persistent clot continue with blood thinner (4) Chronic diarrhea: Code(s): K52.9 - Noninfective gastroenteritis and colitis, unspecified Status: Acute (5) Anemia: Code(s): D64.9 - Anemia, unspecified Status: Acute Assessment and Plan: probably multifactorial from active ibd, use of blood thinner, c diff, etc no overt gib and hgb now stable Subjective Date/time seen: 10/17/25 14:53 Interval history: no changes, he is comfortable still with diarrhea family is here and he is hoping to go home tomorrow Review of Systems Review of Systems: All systems reviewed & are unremarkable except as noted in HPI and below Exam Const: General: comfortable and no acute distress HENMT: Face/Nose/Sinus: Normal nares present Eyes: General: appearance normal, both eyes and all related structures Neck: Neck: supple Resp: Auscultation: clear to auscultation bilaterally Cardio: Rate: regular rate Rhythm: regular rhythm GI: Inspection: non-distended GI Palp: Yes Soft to palpation and No Tenderness to palpation present (GI) Auscultation: normal bowel sounds Skin: General skin exam: normal color Neuro: Speech: normal speech Extrem: Other: stable swelling left leg Psych: Mental Status: mental status grossly normal Objective Data Vital Signs Vital Signs: Vital Signs - 24 hr 10/16/25 21:49 10/17/25 06:00 10/17/25 08:00 Temperature 97.6 F 98.4 F Pulse Rate 94 71 Respiratory Rate 18 16 Blood Pressure 136/85 126/75 Pulse Oximetry 100 100 Oxygen Delivery Room Air Intake/Output Intake/Output: Intake & Output 10/14/25 10/15/25 10/16/25 10/17/25 23:59 23:59 23:59 23:59 Intake Total 1815 300 Balance 1815 300 Meds/Results Medications: Active Medications Generic Name Dose Route Start Last Admin Trade Name Freq PRN Reason Stop Dose Admin Acetaminophen 650 mg 10/15/25 22:21 10/16/25 13:22 Acetaminophen 325 Mg Tablet PO 650 mg Q4H PRN Administration Mild Pain (1-3) or Fever Apixaban 5 mg 10/16/25 21:00 10/17/25 09:45 Apixaban 5 Mg Tablet PO 5 mg Q12HR IVONNE Administration Fidaxomicin 200 mg 10/16/25 09:00 10/17/25 09:45 Fidaxomicin 200 Mg Tablet PO 10/26/25 08:59 200 mg Q12HR IVONNE Administration Hyoscyamine 0.125 mg 10/16/25 13:00 10/17/25 13:26 Hyoscyamine Sulfate 0.125 Mg Tablet BY MOUTH 0.125 mg QID IVONNE Administration Multivitamins Therapeutic 1 tablet 10/17/25 09:00 10/17/25 09:45 Multivitamins Therapeutic Tab (*Bkc) PO 1 tablet QAM IVONNE Administration Ondansetron HCl 4 mg 10/15/25 22:21 Ondansetron Inj 4 Mg/2 Ml Vial IV PUSH Q4H PRN Nausea Tramadol HCl 50 mg 10/16/25 10:03 Tramadol Hcl (*Crx) 50 Mg Tablet PO Q6H PRN Pain 4-6 Radiology Results: ITS Impressions Venous Doppler Study 10/15/25 18:23 IMPRESSION: 1. Persistent DVT in the femoral and popliteal veins of the left lower extremity. Thrombus of the gastrocnemius vein also is noted. Labs Labs: Laboratory Results - last 24 hr 10/17/25 04:30 WBC 7.4 RBC 3.72 L Hgb 10.8 L Hct 35.1 L MCV 94.4 MCH 29.0 MCHC 30.8 L RDW 13.7 Plt Count 211 MPV 9.3 Immature Gran % (Auto) 0.3 Neut % (Auto) 69.6 Lymph % (Auto) 15.0 L [place] % (Auto) 10.7 H Eos % (Auto) 3.9 Baso % (Auto) 0.5 Lymph # (Auto) 1.11 [place] # (Auto) 0.8 H Eos # (Auto) 0.3 Baso # (Auto) 0.0 Abs Immat Gran (auto) 0.02 Absolute Neuts (auto) 5.1 Absolute Nucleated RBC 0.000 Nucleated RBC % 0.0 Sodium 135 L Potassium 3.8 Chloride 109 H Carbon Dioxide 27 Anion Gap -1 L BUN 8 L Creatinine 0.86 Estim Creat Clear Calc 99 Estimated GFR > 60 Glucose 95 Calcium 8.2 L C-Reactive Protein 1.2 H
--- NOTE | 2025-10-17 15:29 | WPDONCCN ---
Assessment and Plan Assessment and plan (1) DVT, lower extremity: Qualifiers: Affected thrombotic vein of extremity: femoral Chronicity: acute Laterality: left Qualified Code(s): I82.412 - Acute embolism and thrombosis of left femoral vein Code(s): I82.409 - Acute embolism and thrombosis of unspecified deep veins of unspecified lower extremity Status: Acute Assessment and Plan: Patient has a history of ulcerative colitis diagnosed in March of 2024 and currently started Remicade 2 weeks ago. He was originally diagnosed with extensive left lower extremity DVT and bilateral pulmonary embolism in February of 2020 5 which was unprovoked in nature. He denies any prior injury trauma and surgery. He is not taking any testosterone replacement therapy. Likely his thrombosis is secondary to ulcerative colitis which seems to be not under controlled given his persistent significant diarrhea. Patient was started on Eliquis with improvement in the left lower extremity swelling and shortness of breath. Recent CTA chest in July showed no evidence of pulmonary embolism. Doppler studies are showing persistent DVT but clinically improving swelling. I will continue to Eliquis 5 mg twice a day and repeat Doppler studies will be done in 3 months. (2) Anemia: Code(s): D64.9 - Anemia, unspecified Status: Acute Assessment and Plan: This is secondary to ulcerative colitis. I will order iron studies and vitamin B12 level. HPI Data of Consult Date/Time: 10/17/25 15:29 Requesting Physician: Federica Ragsdale DO Primary Care Provider: Sanford Harvey MD Consult Narrative Narrative: Lukasz Gibbs is a 45 year old male with history of ulcerative colitis diagnosed in March of 2024 developed unprovoked extensive left lower extremity DVT and bilateral pulmonary embolism in February of 2025. He presented with left lower extremity edema and shortness of breath at that time. Patient was started on Eliquis. He there is no family history of thromboembolic events. Repeat Doppler studies done in August of 2025 showed left-sided DVT. Chest CTA done in July of 2025 showed no evidence of PE. Doppler studies done during this hospital admission showed persistent DVT in the left femoral and popliteal vein. There was a thrombus on the gastrocnemius vein. Clinically his left lower extremity edema has significantly improved. He has been taking Eliquis regularly. Regarding his ulcerative colitis he was started on Remicade about 2 weeks ago. He is still having significant diarrhea. Labs showed hemoglobin of 10.8. He denies any active bleeding. Patient has appointment to see me next week. Denies any other complaints. Review of Systems Review of Systems: Twelve point review of system was reviewed [facility] Past Medical History Medical History (Updated 10/17/25 @ 14:54 by Shahzad Fuentes MD) Anemia Ulcerative pancolitis Leg edema, left Chronic diarrhea Colitis Weight loss Nausea and vomiting in adult Surgical History Surgical History No history of previous surgery Family History Family History Grandparent Colon cancer Other Colon cancer Mother Chronic obstructive pulmonary disease Social History Social History (Updated 10/16/25 @ 09:45 by Ted Salcido MD) Social History: Lives at home with , 2 biologic children and 1 step-child. They have dogs and birds. No alcohol, tobacco or drug use. 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 Spiritual care concerns: No Meds Home Medications and Allergies Home Medications ?Medication ?Instructions ?Recorded ?Confirmed ?Type diaper,brief,adult,disposable #120 ea 08/18/24 12/06/24 Rx guselkumab 200 mg/20 mL (10 mg/mL) 200 mg (20 mL) IV ONCE 10/19/24 12/06/24 Rx intravenous solution (Tremfya) mesalamine 4 gram/60 mL enema See Rx Instructions .Route 10/24/24 10/16/25 Rx .COMPLEX #5,040 mL diphenoxylate-atropine 2.5 1 tablet PO TID #60 tabs 01/03/25 10/16/25 Rx mg-0.025 mg tablet (Lomotil) hyoscyamine sulfate 0.125 mg See Rx Instructions .Route 01/22/25 10/16/25 Rx sublingual tablet .COMPLEX #360 tabs loperamide 1 mg/7.5 mL oral liquid 2 mg (15 mL) PO Q4H PRN loose 04/09/25 10/16/25 Rx (Imodium A-D) stool #450 mL diphenoxylate-atropine 2.5 1 tablet PO TID PRN diarrhea #90 04/12/25 10/16/25 Rx mg-0.025 mg tablet (Lomotil) tabs diphenoxylate-atropine 2.5 1 tablet PO TID PRN diarrhea #90 04/12/25 10/16/25 Rx mg-0.025 mg tablet (Lomotil) tabs tramadol 50 mg tablet 50 mg PO Q6H PRN pain #90 tabs 04/30/25 10/16/25 Rx pantoprazole 40 mg tablet,delayed 40 mg PO Q12H #60 tabs 06/26/25 10/16/25 Rx release apixaban 5 mg tablet (Eliquis) 5 mg PO BID #60 tabs 07/16/25 10/16/25 Rx Allergies Allergy/AdvReac Type Severity Reaction Status Date / Time No Known Allergies Allergy Verified 10/16/25 00:26 Vital Signs Vital Signs - 24 hr 10/16/25 21:49 10/17/25 06:00 10/17/25 08:00 Temperature 36.4 C 36.9 C Pulse Rate 94 71 Respiratory Rate 18 16 Blood Pressure 136/85 126/75 Pulse Oximetry 100 100 Oxygen Delivery Room Air Exam Narrative: Lungs are clear to auscultation bilaterally Cardiovascular regular rate rhythm no murmurs Abdomen soft nontender nondistended Extremities showed mild left lower extremity edema Results Labs 10/17/25 04:30 10/17/25 04:30 Labs: Short CBC 10/17/25 Range/Units 04:30 WBC 7.4 (4.5-10.0) K/mm3 Hgb 10.8 L (14.0-18.0) g/dL Hct 35.1 L (42.0-52.0) % Plt Count 211 (150-375) k/mm3 BMP 10/17/25 04:30 Sodium 135 L Potassium 3.8 Chloride 109 H Carbon Dioxide 27 BUN 8 L Creatinine 0.86 Glucose 95 Calcium 8.2 L
--- NOTE | 2025-10-17 15:35 | PM.IMPN ---
Progress Note: A&P Assessment and Plan (1) C. difficile diarrhea: Code(s): A04.72 - Enterocolitis due to Clostridium difficile, not specified as recurrent Status: Acute Assessment and Plan: Patient with persistent bloody diarrhea despite the use of biologic agents. Stool studies sent from the ED. CDiff PCR and GDH Ag positive but Toxin negative to suggest either nonfunctioning toxin gene, low level of CDiff or false negative toxin assay. Dificid continue Monitor stool output but this may not improve given his underlying issue of UC. WBC normal ID consult. Repeat CDiff test. (2) DVT, lower extremity: Qualifiers: Affected thrombotic vein of extremity: femoral Chronicity: acute Laterality: left Qualified Code(s): I82.412 - Acute embolism and thrombosis of left femoral vein Code(s): I82.409 - Acute embolism and thrombosis of unspecified deep veins of unspecified lower extremity Status: Acute Assessment and Plan: Left LE venous doppler showing similar findings when compared to prior exams. Patient having intermittent worsening of chronic left LE edema. [place] related to the significant clot burden to the left leg and not a recurrent DVT. Suspect worsening edema related to fluid status, sodium intake and possibly made worse with leg being dependent. Leg better when elevated. Follow. Continue Eliquis at current dose. (3) Ulcerative pancolitis: Code(s): K51.00 - Ulcerative (chronic) pancolitis without complications Status: Acute Assessment and Plan: Patient with UC diagnosed in 2023. He is now on his 3rd biologic agent without much improvement. Symptoms may not improve due to ongoing CDiff infection if this is a true infection. As above. Hold Remicade. Plan DVT Prophylaxis - Eliquis Code status - full Subjective Date/time seen: 10/17/25 15:35 Interval history: Patient was examined today. He is feeling better. Diarrhea improving. Had 8 episodes of diarrhea this morning. GI team on board. Reviewed GI physician note. Plan to discharge tomorrow Review of Systems Review of Systems: All systems reviewed & are unremarkable except as noted in HPI and below Exam Narrative: AF 98.2 113/72 75 18 99% Gen - well/ill appearing male in no acute respiratory distress who is nontoxic-appearing lying semi recumbent in bed HEENT - normocephalic. Atraumatic. Pupils equal round and reactive. Extraocular motions intact. Sclera clear and anicteric. Nares patent. Oropharynx was clear. No oral lesions. Moist mucous membranes. Tongue was midline. Palate michelle symmetrically. No facial asymmetry. Neck - neck was supple. No dominant adenopathy, thyromegaly or masses Chest - lungs are clear to auscultation bilaterally. No wheezes or crackles. CV - heart was regular rate and rhythm. S1-S2. No murmurs gallops or rubs. Abd - abdomen was soft. Nondistended. Positive bowel sounds. Nontender but patient with guarding (stating he is ticklish) Ext - no clubbing or cyanosis. Very mild edema to the LLE. 2+ DP pulses bilaterally. Neuro - patient is alert and oriented x4. Strength is 5/5 in both upper and lower extremities. Cranial nerves 2-12 are intact. Speech is clear. Psych - normal mood and affect. Patient is pleasant and cooperative. Skin - warm and dry. No rashes noted. Objective Data Vital Signs Vital Signs: Vital Signs - 24 hr 10/16/25 21:49 10/17/25 06:00 10/17/25 08:00 Temperature 97.6 F 98.4 F Pulse Rate 94 71 Respiratory Rate 18 16 Blood Pressure 136/85 126/75 Pulse Oximetry 100 100 Oxygen Delivery Room Air Intake/Output Intake/Output: Intake & Output 10/14/25 10/15/25 10/16/25 10/17/25 23:59 23:59 23:59 23:59 Intake Total 1815 300 Balance 1815 300 Meds/Results Medications: Active Medications Generic Name Dose Route Start Last Admin Trade Name Freq PRN Reason Stop Dose Admin Acetaminophen 650 mg 10/15/25 22:21 10/16/25 13:22 Acetaminophen 325 Mg Tablet PO 650 mg Q4H PRN Administration Mild Pain (1-3) or Fever Apixaban 5 mg 10/16/25 21:00 10/17/25 09:45 Apixaban 5 Mg Tablet PO 5 mg Q12HR IVONNE Administration Fidaxomicin 200 mg 10/16/25 09:00 10/17/25 09:45 Fidaxomicin 200 Mg Tablet PO 10/26/25 08:59 200 mg Q12HR IVONNE Administration Hyoscyamine 0.125 mg 10/16/25 13:00 10/17/25 13:26 Hyoscyamine Sulfate 0.125 Mg Tablet BY MOUTH 0.125 mg QID IVONNE Administration Multivitamins Therapeutic 1 tablet 10/17/25 09:00 10/17/25 09:45 Multivitamins Therapeutic Tab (*Bkc) PO 1 tablet QAM IVONNE Administration Ondansetron HCl 4 mg 10/15/25 22:21 Ondansetron Inj 4 Mg/2 Ml Vial IV PUSH Q4H PRN Nausea Tramadol HCl 50 mg 10/16/25 10:03 Tramadol Hcl (*Crx) 50 Mg Tablet PO Q6H PRN Pain 4-6 Radiology Results: ITS Impressions Venous Doppler Study 10/15/25 18:23 IMPRESSION: 1. Persistent DVT in the femoral and popliteal veins of the left lower extremity. Thrombus of the gastrocnemius vein also is noted. Labs Labs: Laboratory Results - last 24 hr 10/17/25 04:30 WBC 7.4 RBC 3.72 L Hgb 10.8 L Hct 35.1 L MCV 94.4 MCH 29.0 MCHC 30.8 L RDW 13.7 Plt Count 211 MPV 9.3 Immature Gran % (Auto) 0.3 Neut % (Auto) 69.6 Lymph % (Auto) 15.0 L [place] % (Auto) 10.7 H Eos % (Auto) 3.9 Baso % (Auto) 0.5 Lymph # (Auto) 1.11 [place] # (Auto) 0.8 H Eos # (Auto) 0.3 Baso # (Auto) 0.0 Abs Immat Gran (auto) 0.02 Absolute Neuts (auto) 5.1 Absolute Nucleated RBC 0.000 Nucleated RBC % 0.0 Sodium 135 L Potassium 3.8 Chloride 109 H Carbon Dioxide 27 Anion Gap -1 L BUN 8 L Creatinine 0.86 Estim Creat Clear Calc 99 Estimated GFR > 60 Glucose 95 Calcium 8.2 L C-Reactive Protein 1.2 H
[2025-10-17] MEDS: traMADol HCL (*CRX) 50 MG TABLET PO (16:43)
[2025-10-17] MEDS: ACETAMINOPHEN 325 MG TABLET 650 MG PO (16:49)
--- NOTE | 2025-10-17 17:28 | WPDINFPN2 ---
Progress Note: A&P Assessment and Plan (1) C. difficile diarrhea: Code(s): A04.72 - Enterocolitis due to Clostridium difficile, not specified as recurrent Status: Acute (2) Ulcerative pancolitis: Code(s): K51.00 - Ulcerative (chronic) pancolitis without complications Status: Acute Assessment and Plan: ASSESSMENT: 1. diarrhea iso C. diff positivity and UC--possible that both could be playing a role 2. immunocompromised host on remicade 3. UC 4. DVT/PE RECOMMENDATIONS: -Continue dificid day 3 -stop probiotics--pts with lots of colon inflammation like in setting with C. diff can become fungemic, especially in setting of immunocompromise; would use with caution for general chron's mgmt but defer to GI -f/u on stool studies -supportive care d/w nursing staff Pt was seen via video telehealth consultation with the assistance of staff. Chart, data and patient info reviewed. Patient was located at [facility] while I was in my [place] office. Pt gave consent. Subjective Date/time seen: 10/17/25 17:28 Interval history: no fever no leukocytosis states multiple BMs are mostly at his baseline appetite good no emesis Exam Narrative: on room air, NAD Objective Data Vital Signs Vital Signs: Vital Signs - 24 hr 10/16/25 21:49 10/17/25 06:00 10/17/25 08:00 Temperature 97.6 F 98.4 F Pulse Rate 94 71 Respiratory Rate 18 16 Blood Pressure 136/85 126/75 Pulse Oximetry 100 100 Oxygen Delivery Room Air 10/17/25 14:00 Temperature 98.2 F Pulse Rate 78 Respiratory Rate 14 Blood Pressure 109/70 Pulse Oximetry 100 Oxygen Delivery Intake/Output Intake/Output: Intake & Output 10/14/25 10/15/25 10/16/25 10/17/25 23:59 23:59 23:59 23:59 Intake Total 1815 600 Balance 1815 600 Meds/Results Medications: Active Medications Generic Name Dose Route Start Last Admin Trade Name Freq PRN Reason Stop Dose Admin Acetaminophen 650 mg 10/15/25 22:21 10/17/25 16:49 Acetaminophen 325 Mg Tablet PO 650 mg Q4H PRN Administration Mild Pain (1-3) or Fever Apixaban 5 mg 10/16/25 21:00 10/17/25 09:45 Apixaban 5 Mg Tablet PO 5 mg Q12HR IVNONE Administration Fidaxomicin 200 mg 10/16/25 09:00 10/17/25 09:45 Fidaxomicin 200 Mg Tablet PO 10/26/25 08:59 200 mg Q12HR IVONNE Administration Hyoscyamine 0.125 mg 10/16/25 13:00 10/17/25 16:43 Hyoscyamine Sulfate 0.125 Mg Tablet BY MOUTH 0.125 mg QID IVONNE Administration Multivitamins Therapeutic 1 tablet 10/17/25 09:00 10/17/25 09:45 Multivitamins Therapeutic Tab (*Bkc) PO 1 tablet QAM IVONNE Administration Ondansetron HCl 4 mg 10/15/25 22:21 Ondansetron Inj 4 Mg/2 Ml Vial IV PUSH Q4H PRN Nausea Tramadol HCl 50 mg 10/16/25 10:03 10/17/25 16:43 Tramadol Hcl (*Crx) 50 Mg Tablet PO 50 mg Q6H PRN Administration Pain 4-6 Radiology Results: ITS Impressions Venous Doppler Study 10/15/25 18:23 IMPRESSION: 1. Persistent DVT in the femoral and popliteal veins of the left lower extremity. Thrombus of the gastrocnemius vein also is noted. Labs Labs: Laboratory Results - last 24 hr 10/17/25 04:30 WBC 7.4 RBC 3.72 L Hgb 10.8 L Hct 35.1 L MCV 94.4 MCH 29.0 MCHC 30.8 L RDW 13.7 Plt Count 211 MPV 9.3 Immature Gran % (Auto) 0.3 Neut % (Auto) 69.6 Lymph % (Auto) 15.0 L [place] % (Auto) 10.7 H Eos % (Auto) 3.9 Baso % (Auto) 0.5 Lymph # (Auto) 1.11 [place] # (Auto) 0.8 H Eos # (Auto) 0.3 Baso # (Auto) 0.0 Abs Immat Gran (auto) 0.02 Absolute Neuts (auto) 5.1 Absolute Nucleated RBC 0.000 Nucleated RBC % 0.0 Sodium 135 L Potassium 3.8 Chloride 109 H Carbon Dioxide 27 Anion Gap -1 L BUN 8 L Creatinine 0.86 Estim Creat Clear Calc 99 Estimated GFR > 60 Glucose 95 Calcium 8.2 L C-Reactive Protein 1.2 H
[2025-10-17 21:31] VITALS: BP 115/73; PULSE 83; RESP 20; TEMP 37.1; O2SAT 99
[2025-10-18 05:24] LABS: Hematocrit 38.4 % (42.0-52.0); Hemoglobin 11.7 g/dL (14.0-18.0); Immature Granulocyte Percent A 0.5 % (0-0.5); Lymphocytes Absolute Auto 1.02 K/mm3 (0.9-3.2); Mean Corpuscular HGB Conc 30.5 g/dl (32-36); Mean Corpuscular Hemoglobin 28.4 pg (26-34); Mean Corpuscular Volume 93.2 fl (80-100); Nucleated Red Blood Cells Absolute Auto 0.000 K/mm3 (0.0-0.012); Nucleated Red Blood Cells Perc 0.0 % (0.0-0.2); Platelet Count Result 230 k/mm3 (150-375); Red Blood Count 4.12 M/mm3 (4.6-6.20); White Blood Count 6.0 K/mm3 (4.5-10.0)
[2025-10-18 05:59] LABS: Anion Gap 2 mmol/L (4-12); Blood Urea Nitrogen 13 mg/dL (9-20); Calcium 8.5 mg/dL (8.4-10.2); Carbon Dioxide 28 mmol/L (22-30); Chloride 105 mmol/L (98-107); Estimated CRCL calculation 92 ml/min; Estimated Glomerular Filt Rate > 60; Glucose 97 mg/dL (65-110); Potassium 4.2 mmol/L (3.4-5.0); Sodium 135 mmol/L (137-145)
[2025-10-18 06:00] VITALS: BP 113/79; PULSE 85; RESP 20; TEMP 36.9; O2SAT 99
--- NOTE | 2025-10-18 07:24 | P.PNIM_ITS ---
Progress Note: A&P Assessment and Plan (1) C. difficile diarrhea: Code(s): A04.72 - Enterocolitis due to Clostridium difficile, not specified as recurrent Status: Acute Assessment and Plan: - Patient with persistent bloody diarrhea despite the use of biologic agents. - Stool studies sent from the ED. CDiff PCR and GDH Ag positive but Toxin negative to suggest either nonfunctioning toxin gene, low level of CDiff or false negative toxin assay. - afebrile, no leukocytosis, HDS - ID consulted - recommended to continue Dificid. Will need care coordination assistance to check insurance coverage. -Monitor stool output but this may not improve given his underlying issue of UC. (2) DVT, lower extremity: Qualifiers: Affected thrombotic vein of extremity: femoral Chronicity: acute Laterality: left Qualified Code(s): I82.412 - Acute embolism and thrombosis of left femoral vein Code(s): I82.409 - Acute embolism and thrombosis of unspecified deep veins of unspecified lower extremity Status: Acute Assessment and Plan: - Left LE venous doppler showing similar findings when compared to prior exams. Patient having intermittent worsening of chronic left LE edema. [place] related to the significant clot burden to the left leg and not a recurrent DVT. - Suspect worsening edema related to fluid status, sodium intake and possibly made worse with leg being dependent. Leg better when elevated. - hematology consult - recommended to continue Eliquis, repeat Doppler studies in 3 months (3) Ulcerative pancolitis: Code(s): K51.00 - Ulcerative (chronic) pancolitis without complications Status: Acute Assessment and Plan: -Patient with UC diagnosed in 2023. He is now on his 3rd biologic agent without much improvement. Follows with GI at [facility]. -Symptoms may not improve due to ongoing CDiff infection if this is a true infection. - GI consulted - recommended management of C diff as above and follow-up outpatient Plan DVT Prophylaxis - Eliquis Code status - full Dispo: home tomorrow once abx arranged Subjective Date/time seen: 10/18/25 07:24 Interval history: Patient seen and examined at bedside. Still having some diarrhea and lower abdominal spasms. Review of Systems Review of Systems: All systems reviewed & are unremarkable except as noted in HPI and below Exam Narrative: General: NAD Eyes: EOMI ENT: neck supple Cardiovascular: Regular rate and rhythm Respiratory: Clear to auscultation, respirations even and unlabored on RA Gastrointestinal: Soft, non tender Genitourinary: no suprapubic tenderness Musculoskeletal: No edema Skin: warm, dry Neuro: Alert. Psych: Mood appropriate Objective Data Vital Signs Vital Signs: Vital Signs - 24 hr 10/17/25 08:00 10/17/25 14:00 10/17/25 21:31 Temperature 98.2 F 98.8 F Pulse Rate 78 83 Respiratory Rate 14 20 Blood Pressure 109/70 115/73 Pulse Oximetry 100 99 Oxygen Delivery Room Air 10/18/25 06:00 Temperature 98.4 F Pulse Rate 85 Respiratory Rate 20 Blood Pressure 113/79 Pulse Oximetry 99 Oxygen Delivery Intake/Output Intake/Output: Intake & Output 10/15/25 10/16/25 10/17/25 10/18/25 23:59 23:59 23:59 23:59 Intake Total 1815 600 Balance 1815 600 Meds/Results Medications: Active Medications Generic Name Dose Route Start Last Admin Trade Name Freq PRN Reason Stop Dose Admin Acetaminophen 650 mg 10/15/25 22:21 10/17/25 16:49 Acetaminophen 325 Mg Tablet PO 650 mg Q4H PRN Administration Mild Pain (1-3) or Fever Apixaban 5 mg 10/16/25 21:00 10/17/25 20:37 Apixaban 5 Mg Tablet PO 5 mg Q12HR IVONNE Administration Fidaxomicin 200 mg 10/16/25 09:00 10/17/25 20:36 Fidaxomicin 200 Mg Tablet PO 10/26/25 08:59 200 mg Q12HR IVONNE Administration Hyoscyamine 0.125 mg 10/16/25 13:00 10/17/25 20:37 Hyoscyamine Sulfate 0.125 Mg Tablet BY MOUTH 0.125 mg QID IVONNE Administration Multivitamins Therapeutic 1 tablet 10/17/25 09:00 10/17/25 09:45 Multivitamins Therapeutic Tab (*Bkc) PO 1 tablet QAM IVONNE Administration Ondansetron HCl 4 mg 10/15/25 22:21 Ondansetron Inj 4 Mg/2 Ml Vial IV PUSH Q4H PRN Nausea Tramadol HCl 50 mg 10/16/25 10:03 10/17/25 16:43 Tramadol Hcl (*Crx) 50 Mg Tablet PO 50 mg Q6H PRN Administration Pain 4-6 Radiology Results: ITS Impressions Venous Doppler Study 10/15/25 18:23 IMPRESSION: 1. Persistent DVT in the femoral and popliteal veins of the left lower extremity. Thrombus of the gastrocnemius vein also is noted. Labs Labs: Laboratory Results - last 24 hr 10/18/25 04:47 WBC 6.0 RBC 4.12 L Hgb 11.7 L Hct 38.4 L MCV 93.2 MCH 28.4 MCHC 30.5 L RDW 13.6 Plt Count 230 MPV 9.0 Immature Gran % (Auto) 0.5 Neut % (Auto) 65.6 Lymph % (Auto) 17.1 L [place] % (Auto) 11.3 H Eos % (Auto) 5.0 H Baso % (Auto) 0.5 Lymph # (Auto) 1.02 [place] # (Auto) 0.7 H Eos # (Auto) 0.3 Baso # (Auto) 0.0 Abs Immat Gran (auto) 0.03 Absolute Neuts (auto) 3.9 Absolute Nucleated RBC 0.000 Nucleated RBC % 0.0 Sodium 135 L Potassium 4.2 Chloride 105 Carbon Dioxide 28 Anion Gap 2 L BUN 13 D Creatinine 0.93 Estim Creat Clear Calc 92 Estimated GFR > 60 Glucose 97 Calcium 8.5
[2025-10-18 08:00] VITALS: BP 109/83; PULSE 89; RESP 18; TEMP 36.9; O2SAT 98
[2025-10-18] MEDS: HYOSCYAMINE SULFATE 0.125 MG TABLET BY MOUTH ×4 (08:05→19:42)
[2025-10-18] MEDS: FIDAXOMICIN 200 MG TABLET PO ×2 (08:05→19:39)
[2025-10-18] MEDS: APIXABAN 5 MG TABLET PO ×2 (08:05→19:39)
[2025-10-18] MEDS: MULTIVITAMINS THERAPEUTIC TAB (*BKC) 1 TABLET PO (08:05)
[2025-10-18 14:00] VITALS: BP 109/85; PULSE 87; RESP 18; TEMP 36.9; O2SAT 99
[2025-10-18] MEDS: ACETAMINOPHEN 325 MG TABLET 650 MG PO (15:25)
[2025-10-18 16:00] VITALS: BP 102/82; PULSE 91; RESP 18; TEMP 37.1; O2SAT 100
[2025-10-18 22:00] VITALS: BP 115/86; PULSE 79; RESP 16; TEMP 36.9; O2SAT 100
[2025-10-19 06:00] VITALS: BP 97/61; PULSE 69; RESP 16; TEMP 36.2; O2SAT 99
[2025-10-19 08:00] VITALS: BP 108/82; PULSE 76; RESP 12; TEMP 37.1; O2SAT 99
[2025-10-19] MEDS: FIDAXOMICIN 200 MG TABLET PO (08:06)
[2025-10-19] MEDS: ACETAMINOPHEN 325 MG TABLET 650 MG PO (08:06)
[2025-10-19] MEDS: traMADol HCL (*CRX) 50 MG TABLET PO (08:06)
[2025-10-19] MEDS: APIXABAN 5 MG TABLET PO (08:06)
[2025-10-19] MEDS: MULTIVITAMINS THERAPEUTIC TAB (*BKC) 1 TABLET PO (08:06)
[2025-10-19] MEDS: HYOSCYAMINE SULFATE 0.125 MG TABLET BY MOUTH (08:06)
--- NOTE | 2025-10-19 10:47 | P.DS_ITS ---
DS: Admitting Diagnosis Discharge Date 10/19/25 Admitting Diagnosis - C diff diarrhea - ulcerative colitis DS: Discharge Diagnosis Discharge Diagnosis (1) C. difficile diarrhea: Code(s): A04.72 - Enterocolitis due to Clostridium difficile, not specified as recurrent Status: Acute (2) DVT, lower extremity: Qualifiers: Affected thrombotic vein of extremity: femoral Chronicity: acute Laterality: left Qualified Code(s): I82.412 - Acute embolism and thrombosis of left femoral vein Code(s): I82.409 - Acute embolism and thrombosis of unspecified deep veins of unspecified lower extremity Status: Acute (3) Ulcerative pancolitis: Code(s): K51.00 - Ulcerative (chronic) pancolitis without complications Status: Acute DS: Summary Hospital Course Reason for hospitalization: - C diff diarrhea - ulcerative colitis Hospital Course: The patient is a 45-year-old male with a history of ulcerative pancolitis, chronic left lower extremity DVT, and prior PE, who presented with increased frequency of bloody diarrhea. On admission, he was found to have persistent DVT in the left femoral and popliteal veins on Doppler ultrasound. He was hemodynamically stable and continued on therapeutic anticoagulation with Eliquis per hematology recs with instructions to follow-up in 3 months for repeat Doppler. Stool studies were positive for C. difficile by PCR and GDH antigen, though toxin was negative. Infectious disease was consulted and recommended a 10-day course of fidaxomicin (Dificid), and a telehealth follow-up in one week. Confirmed that patient's pharmacy was able to fill Dificid with no copay. The patient?s diarrhea improved during hospitalization, and his hemoglobin remained stable without evidence of ongoing bleeding. He remained afebrile and hemodynamically stable throughout his stay. Patient was instructed to hold antidiarrheals until treatment for C diff completed. His left lower extremity edema improved with elevation and continued anticoagulation. He was discharged in stable condition with instructions to complete his Dificid course, continue Eliquis, and follow up with infectious disease and his director learning as an outpatient. He was discharged home in stable condition. Status at Discharge Functional status at discharge: independent ambulation Time Spent with Patient Time attestation: Total time spent providing and/or coordinating discharge services: Time spent: Greater than 30 minutes Exam Narrative: General: NAD Eyes: EOMI ENT: neck supple Cardiovascular: Regular rate and rhythm Respiratory: Clear to auscultation, respirations even and unlabored on RA Gastrointestinal: Soft, non tender Genitourinary: no suprapubic tenderness Musculoskeletal: No edema Skin: warm, dry Neuro: Alert. Psych: Mood appropriate DS: Data Data Completed and Pending Completed studies during hospitalization: ITS Impressions Venous Doppler Study 10/15/25 18:23 IMPRESSION: 1. Persistent DVT in the femoral and popliteal veins of the left lower extremity. Thrombus of the gastrocnemius vein also is noted. Discharge Plan Discharge Attending physician on discharge: Martín Mcmillan Consulting providers: Jerome Marcial; Santy Gill; Ena Shipman; Mary Ann Tran Discharging Clinician: Ena Shipman Anticipated Discharge Date/Time: 10/19/25 10:36 Patient Disposition: Home Activity: unlimited Diet: regular Discharge Instructions: Diagnosis: You have been diagnosed with a Clostridioides difficile (C. diff) infection. You also have a history of ulcerative colitis, which may increase your risk for complications. Medications: * Take all prescribed antibiotics exactly as directed. Do not skip doses or stop early, even if you feel better. * If you are on any medications for ulcerative colitis, continue them as instructed unless told otherwise. Infection Control at Home: * Wash your hands frequently with soap and water, especially after using the bathroom and before eating. * Use a separate bathroom if possible. If not, clean the toilet seat and handle after each use. * Clean surfaces in your home (especially bathroom and kitchen) with a bleach- based wafer cleaner. * Avoid preparing food for others until cleared by your provider. Diet and Hydration: * Drink plenty of fluids to prevent dehydration (water, clear broths, electrolyte solutions). * Eat small, frequent meals as tolerated. Avoid foods that worsen diarrhea (greasy, spicy, or high-fiber foods). * Monitor for signs of dehydration: dry mouth, decreased urination, dizziness. Monitor for Worsening Symptoms: Contact your provider or go to the emergency department if you experience: * Severe abdominal pain or cramping * Blood in your stool or black, tarry stools * High fever (over 101?F/38.3?C) * Signs of dehydration (dizziness, confusion, rapid heartbeat) * Inability to keep fluids down Follow-Up Appointments: * Gastroenterology (GI):?Keep your scheduled follow-up appointment to monitor your ulcerative colitis and recovery from C. diff. * Infectious Disease:?Schedule a follow-up appointment with infectious disease in 5?7 days to assess your response to treatment and discuss further management. Additional Instructions: * Do not take anti-diarrheal medications (like loperamide or lomotil). * Inform all healthcare providers of your recent C. diff infection. * If you live with others, encourage them to practice good hand hygiene. If you have any questions or concerns, contact your healthcare provider. Patient Instructions: Antibiotic Form, Apixaban (By mouth) Patient Language: Malay Stand Alone Forms: General Discharge Information Follow-up/Referrals: Jerome Marcial MD [Physician, Hematology] Lukasz Chávez MD [Physician, Infectious Disease] - Call for Appointment Referral Note: arrange telehealth appointment in 5-7 days to follow-up for C diff Sanford Harvey MD [Primary Care Provider, Family Practice] - Call for Appointment Referral Note: 1 week Discharge Medications: New fidaxomicin [Dificid] 200 mg tablet 200 mg PO Q12H 6 Days Qty: 12 0RF Continued (DME) diaper,brief,adult,disposable Misc See Rx Instructions .Route Qty: 120 0RF Rx Instructions: As directed [place] 200 mg/20 mL (10 mg/mL) solution 200 mg IV ONCE Rx Instructions: at week 0,4 and 8 mesalamine 4 gram/60 mL enema See Rx Instructions .ROUTE .COMPLEX Qty: 5040 1RF Dose Instruction: ADMINISTER 1 ENEMA BY RECTAL ROUTE EVERY DAY AT BEDTIME Rx Instructions: ADMINISTER 1 ENEMA BY RECTAL ROUTE EVERY DAY AT BEDTIME hyoscyamine sulfate 0.125 mg tablet, sublingual See Rx Instructions .ROUTE .COMPLEX Qty: 360 5RF Dose Instruction: TAKE 0.125 MG (1 TABLET) SUBLINGUALLY FOUR TIMES DAILY Rx Instructions: TAKE 0.125 MG (1 TABLET) SUBLINGUALLY FOUR TIMES DAILY tramadol 50 mg tablet 50 mg PO Q6H PRN (Reason: pain) Qty: 90 2RF pantoprazole 40 mg tablet,delayed release (DR/EC) 40 mg PO Q12H Qty: 60 11RF Eliquis 5 mg tablet 5 mg PO BID Qty: 60 5RF Held diphenoxylate-atropine [Lomotil] 2.5-0.025 mg tablet 1 tablet PO TID Qty: 60 3RF Hold Instructions: Resume on 10/27/25. loperamide [Imodium A-D] 1 mg/7.5 mL liquid 2 mg PO Q4H PRN (Reason: loose stool) Qty: 450 5RF Hold Instructions: Resume on 10/27/25. Rx Instructions: administer after each loose stool until symptoms controlled; do not exceed 8 mg per 24 hrs diphenoxylate-atropine [Lomotil] 2.5-0.025 mg tablet 1 tablet PO TID PRN (Reason: diarrhea) Qty: 90 5RF Hold Instructions: Resume on 10/27/25. diphenoxylate-atropine [Lomotil] 2.5-0.025 mg tablet 1 tablet PO TID PRN (Reason: diarrhea) Qty: 90 5RF Hold Instructions: Resume on 10/27/25. Date of admission: 10/18/25 17:30 Primary Care Provider: Sanford Harvey Admitting Provider: Federica Ragsdale Attending physician on admission: Federica Ragsdale Condition: Stable
[2025-10-19 11:59] LABS: Iron 24 ug/dL (49-181)
[2025-10-19 13:00] LABS: Ferritin 32.20 ng/mL (17.9-464)
[2025-10-19 13:12] LABS: Percent Iron Saturation 11 % (20-50)
[2025-10-19 14:54] LABS: Vitamin B12 300.0 pg/mL (239-931)
== END 2025-10-19 11:45 | disposition home or self-care (01) | DRG 372 ==
LOC: ANHED 21:15 → ANH3MEDSUR 22:57
PROVIDERS: Internal Medicine; Internal Medicine Hematology & Oncology; Physician Assistant; Admitting Provider Internal Medicine; Emergency Provider Student in an Organized Health Care Education/Training Program; PCP Emergency Medicine; Visit Provider Physician Assistant
DX: A04.72 Enterocolitis due to Clostridium difficile, not specified as recurrent (principal); I82.412 Acute embolism and thrombosis of left femoral vein; K51.00 Ulcerative (chronic) pancolitis without complications; Z86.711 Personal history of pulmonary embolism; Z79.01 Long term (current) use of anticoagulants
CPT/HCPCS: 36415; 80048; 80053; 82607; 82728; 82746; 83540; 83550; 85025; 85610; 85730; 86140; 86850; 86900; 86901; 87045; 87046; 87324; 87427; 87449; 87493; 93971; 96360; 96361; 99285; A9270; G0378; J7030